=== PATIENT | female | born 1965 | race Caucasian/White ===

== ENCOUNTER → 2016-10-10 | Outpatient (CLI) | payer MEDICARE ==
[~2016-10-10] MED LIST: /ACETCOD3T PO; /ADVA50050 IN; /AUGM875TA OR; /CELE20CA OR; /DULO30CA PO; ACET650T PO; ACET65TA OR; ALBU83IN IN; ATROPINE SULF 1MG/10ML SYRINGE (J0461) As Ordered ONE; BUPIVACAINE HCL 0.25% 30 ML VIAL As Ordered ONE; CEVI30CA PO; CLAR5CHW OR; DEPA250C OR; DRIS1CAP PO; ESTR0.5T16 PO; FLON0.05; IBUP600T26 PO; ISOVUE-M 300 61% 15ML VIAL (Q9967) As Ordered ONE; LEVO125T PO; LIDOCAINE 1% SDV INJ 30 ML VIAL As Ordered ONE; LITH150C PO; LITH300T2 OR; LITH300T2 PO; LYRI150C PO; LYRI200C PO; MAXA10TA17 OR; MAXA5TAB10 PO; METF500T PO; MULTIVIT OR; OMEP20CA3 PO; OXYC-208 PO; PERC5TAB8 OR; PROZ20CA OR; SING10TA31 PO; TIZA2CAP PO; TRIAMCINOLONE ACETONIDE SUSP 40 MG/ML VIAL (J3301) As Ordered ONE; TYL RE; VENTAER INH; VIT D 4000 PO; VITA100037 PO; VITAMIN D OR; [UNRECOGNIZED DRUG - OTHER] PO; lithium PO
--- NOTE | 2016-10-10 11:46 | REP ---
C-arm images from the left lumbar facet block performed 10/10/2016 Indication: Pain Findings: 24 seconds c-arm fluoroscopy time were provided to Dr. Saba who performed bilateral lumbar facet injections at L 3-4 through L5-S1 . Spinal needles were identified overlying the articular facets L 3-4, L4-5, L5 S1 on the left initially, and then later on the right at L 3-4, L4-5, L5 S1. Intra-articular contrast is seen within the above-stated bilateral facet joints bilaterally. Four images were recorded and are available for review on PACS Signed by Kaylah Fierro MD 10/10/2016 11:38 A
--- NOTE | 2016-10-14 02:04 | ECWPNPC ---
PATIENT NAME: BIENVENIDO RDZ : 1965 GENDER: FEMALE VISIT DATE: 10/10/2016 DISCHARGE DATE: 10/10/16 1102 VISIT LOCKED DATE TIME: PHYSICIAN: WILMAR PENALOZA RESOURCE: WILMAR PENALOZA REASON FOR APPOINTMENT 1. LFBT HISTORY OF PRESENT ILLNESS HISTORY OF PRESENT ILLNESS: PAIN THE PATIENT DESCRIBES THE PAIN... FALL RISK SCREENING: SCREENING :TWO OR MORE FALLS WITHOUT INJURY IN THE PAST YEAR CURRENT MEDICATIONS TAKING MAXALT 10 MG TABLET [address] PLUMMER ORALLY NEEDED, NOTES: 3 WEEKS AGO TAKING CYMBALTA 60 MG CAPSULE DELAYED RELEASE PARTICLES 1 CAP ELIAN ORALLY TWICE DAILY, NOTES: 10/09/16@2199 TAKING LYRICA 150 MG CAPSULE 1 CAP(S) ORALLY TWICE DAILY, NOTES: 10/09/16@2199 TAKING TYLENOL/CODEINE #3 300-30 MG TABLET 1 TABLET NEEDED ORALLY AT BEDTIME, NOTES: 3 DAYS AGO TAKING NEBULIZER/TUBING/MOUTHPIECE DX: 466 KIT DIRECTED FOR INHALATION TX 4 TIMES DAILY NEEDED, NOTES: N/A TAKING MULTIVITAMINS OTC TABLET 2 TABS BIOFLEX ORALLY DAILY, NOTES: 10/09/16@1200 TAKING IPRATROPIUM-ALBUTEROL 0.5-2.5 (3) MG/3ML SOLUTION 3 ML INHALATION VIA NEBULIZER FOUR TIMES A DAY, NOTES: 1 YEAR AGO TAKING ESTRADIOL-NORETHINDRONE ACET 0.5-0.1 MG TABLET 1 TABLET ORALLY ONCE A DAY, NOTES: 10/09/16@30 TAKING TIZANIDINE HCL 2 MG TABLET 2 TABS NEEDED ORALLY AT BEDTIME, NOTES: 10/09/16@2330 TAKING TYLENOL 8 HOUR ARTHRITIS PAIN 650 MG TABLET EXTENDED RELEASE 2 TABLETS NEEDED ORALLY DAILY, NOTES: 10/09/16@929 TAKING LEVOTHYROXINE SODIUM 150 MCG TABLET 1 TABLET EVERY MORNING ON AN EMPTY STOMACH ORALLY ONCE A DAY, NOTES: 10/08/16@929 TAKING METFORMIN HCL 500 MG TABLET EXTENDED RELEASE 24 HOUR 2 TABS ORALLY DAILY WITH MEALS, NOTES: 10/09/16@2199 TAKING OMEPRAZOLE 40 MG CAPSULE DELAYED RELEASE 1 CAPSULE BEFORE MEAL ORALLY ONCE A DAY, NOTES: 10/09/16@30 TAKING DRISDOL 16254 UNIT CAPSULE 1 CAPSULE WITH MEAL ORALLY ONCE A WEEK, NOTES: 10/08/16@0930 TAKING SINGULAIR 10 MG TABLET 1 TABLET IN THE EVENING ORALLY ONCE A DAY, NOTES: 10/09/16@2200 TAKING CLARITIN 10 MG TABLET 1 TABLET ORALLY ONCE A DAY, NOTES: 10/09/16@0930 TAKING VOLTAREN 1 % GEL 4GM TO BOTH KNEES TRANSDERMAL TWICE DAILY NEEDED, NOTES: 10/10/16@0800 TAKING LISINOPRIL 10 MG TABLET 1 TAB ORALLY DAILY, NOTES: 10/08/16@0930 TAKING VENTOLIN HFA 108 (90 BASE) MCG/ACT AEROSOL SOLUTION 2 PUFFS INHALATION EVERY 4 HOURS NEEDED, NOTES: 2 WEEKS AGO NOT-TAKING LATUDA 20 MG TABLET 2 TABLETS WITH FOOD ORALLY ONCE A DAY NOT-TAKING ACTIVELLA 0.5-0.1 MG TABLET 1 TABLET ORALLY ONCE A DAY DISCONTINUED VITAMIN D 1000 UNIT TABLET 1 TABLET ORALLY ONCE A DAY MEDICATION LIST REVIEWED AND RECONCILED WITH THE PATIENT PAST MEDICAL HISTORY HYPOTHYROIDISM, AQUIRED DYSPEPSIA, GERD WITH DYSPHAGIA ALLERGIC RHINITIS, SEASONAL MORBID OBESITY BACK PAIN/ DEG DISC DISEASE - [facility] FIBROMYALGIA - DR PLUMMER OBESITY BIPOLAR - DR HILL SLEEP APNEA - DR HERCULES NONALCOHOLIC HEPATOSTEATOSIS KNEE DETERIATION ALLERGIES VICODIN: ITCHING: ALLERGY LAMICTAL: RASH: ALLERGY GEODON: NUMBNESS/TINGLING: ALLERGY SOMA: DIZZINESS: SIDE EFFECTS PERCOCET: ITCHING: ALLERGY PLAQUENIL: DIARRHEA: ALLERGY SOCIAL HISTORY GENERAL: TOBACCO USE ARE YOU A:NONSMOKER LEARNING BARRIERS / SPECIAL NEEDS ORIENTED TO PLAN OF CARE: PATIENT, PAIN MANAGEMENT PATIENT, ORIENTED TO PLAN OF CARE: PATIENT, PAIN MANAGEMENT PATIENT. NEW PATIENT PAIN DIARY TODAY'S VISITNOTES FROM 0-10, WHAT LEVEL IS YOUR PAIN TODAY?0 PAIN CLINIC PFS, CLERGY, PUBLIC HEALTH REFERRALS PFS REFERRAL NEEDED?NO CLERGY REFERRAL NEEDED?NO PUBLIC HEALTH REFERRAL NEEDED?NO WAS THE PROVIDER NOTIFIED OF ANY PERTINENT INFO?NO PFS REFERRAL NEEDED?NO CLERGY REFERRAL NEEDED?NO PUBLIC HEALTH REFERRAL NEEDED?NO WAS THE PROVIDER NOTIFIED OF ANY PERTINENT INFO?NO REVIEW OF SYSTEMS CONSTITUTIONAL: ANY CHANGE IN YOUR MEDICAL CONDITION? NO . CHILLS NO . FEVER NO . INFECTION: DO YOU HAVE NEW INFECTIONS? NO . DO YOU HAVE HISTORY OF MRSA? NO . MUSCULOSKELETAL: ANY NEW PATTERNS OF PAIN OR NUMBNESS? NO . GASTROENTEROLOGY: ANY NEW CHANGE IN BOWEL CONTROL? NO . GENITOURINARY: ANY NEW CHANGE IN BLADDER CONTROL? NO . IS THERE A CHANCE YOU COULD BE ? NO . HEMATOLOGY/LYMPH: DO YOU TAKE ANY BLOOD THINNERS? (FOR EXAMPLE- COUMADIN, PLAVIX, AGGRENOX, PLATEL, PRADAXA, OR XARELTO) NO . WHEN WAS YOUR LAST DOSE? DATE: TIME: . NEUROLOGY: HAVE YOU FALLEN IN THE PAST 6 MONTHS? NO . ANY NEW EXTREMITY NUMBNESS OR WEAKNESS? NO . CARDIOLOGY: DO YOU HAVE A PACEMAKER OR DEFIBRILLATOR? NO . RESPIRATORY: HAVE YOU BEEN SICK IN THE PAST WEEK? NO . FEVER NO . FLU LIKE SYMPTOMS? NO . COUGH NO . INTEGUMENTARY: DO YOU HAVE ANY RASHES OR OPEN SORES? NO . ALLERGIC/IMMUNO: ARE YOU ALLERGIC TO SHELLFISH OR IV DYE? NO . ANY NEW ALLERGIES? NO . PSYCHIATRIC: DO YOU HAVE THOUGHTS OF HURTING YOURSELF OR SOMEONE ELSE? NO . ARE YOU ABUSED, NEGLECTED, OR IN AN UNSAFE ENVIRONMENT? NO . ENDOCRINOLOGY: ARE YOU DIABETIC? NO . OTHER: DO YOU NEED ANY PRESCRIPTIONS? NO . IF YES, PLEASE LIST: ____ . ANY NEW PROBLEMS WITH YOUR MEDICATIONS? NO . WHEN DID YOU LAST EAT? ____10/09/16@2330 . WHEN DID YOU LAST DRINK? ____10/09/16@2350 . WHAT DID YOU LAST DRINK? ___GRAPE POWERADE_ . NAME OF PERSON DRIVING YOU HOME? ____HUSBAND . DO YOU HAVE ANY OTHER QUESTIONS OR CONCERNS NO . REVIEWED BY: PROVIDER: . VITAL SIGNS WT 226 LBS, HT 60.5 IN, BMI 43.41 INDEX, BP 130?83, HR 84 /MIN, RR 18 /MIN, TEMP 97.8 F, OXYGEN SAT % 96%, NA INITIALS SC 09:04, REVIEWED BY: VD. ASSESSMENTS SPONDYLOSIS WITHOUT MYELOPATHY OR RADICULOPATHY, LUMBAR REGION - M47.816 (PRIMARY) SPONDYLOSIS WITHOUT MYELOPATHY OR RADICULOPATHY, LUMBOSACRAL REGION - M47.817 PROCEDURES PN LUMBAR FACET BLOCK THERAPEUTIC PRE PROCEDURE DIAGNOSIS LUMBAR SPONDYLOSIS, LUMBOSACRAL SPONDYLOSIS POST PROCEDURE DIAGNOSIS LUMBAR SPONDYLOSIS, LUMBOSACRAL SPONDYLOSIS PROCEDURE BILATERAL L3-L4, BILATERAL L4-L5, AND BILATERAL L5-S1 FACET THERAPEUTIC BLOCK SURGEON DR. WILMAR PENALOZA BOAT WRAPPER NONE ANESTHESIA LOCAL PRE PROCEDURE NOTE THE PATIENT HAS A HISTORY OF CHRONIC LOW BACK PAIN. I EVALUATE THE PATIENT AND REVIEWED THE CHART. I WENT OVER THE RISKS, ALTERNATIVES, AND BENEFITS ASSOCIATED WITH THIS PROCEDURE. THE PATIENT WOULD LIKE TO PROCEED AND GIVE CONSENT TO PERFORMED THE PROCEDURE. THE PATIENT DENIES UNEXPLAINABLE WEIGHT LOSS, FEVER, CHILLS, OR NEW CHANGES IN URINARY OR BOWEL CONTROL DESCRIPTION OF PROCEDURE THE PATIENT WAS BROUGHT TO THE PROCEDURE ROOM AND PLACED IN THE PRONE POSITION. THE LUMBOSACRAL AREA WAS CLEANED WITH CHLORAPREP SOLUTION AND DRAPED ASEPTICALLY. THE PROCEDURE WAS DONE UNDER STERILE CONDITIONS. I CHECKED LATERALITY AND THE LEVEL WHERE THE PROCEDURE WAS GOING TO BE PERFORMED WITH THE PATIENT AND THE SUPPORTING STAFF AT THE MOMENT OF THE TIME OUT IN THE PROCEDURE ROOM. UNDER FLUOROSCOPIC GUIDANCE, THE TARGET POINT WAS SELECTED AT THE RIGHT AND LEFT L3-L4, RIGHT AND LEFT L4-L5, AND RIGHT AND LEFT L5-S1 FACET THERAPEUTIC BLOCK FACET JOINT. TARGET POINT WAS SELECTED AFTER LATERAL ROTATION AND TILT OF THE MAGNIFIER OF THE C-ARM. LIDOCAINE 0.5% WAS USED TO NUMB THE SKIN AND THE SUBCUTANEOUS TISSUE BELOW IT. SPINAL NEEDLES, 22-GAUGE, WERE ADVANCED UNDER FLUOROSCOPIC GUIDANCE AND FOLLOWING PATIENT FEEDBACK UNTIL THE TARGETS WERE TOUCHED. THE POSITION OF THE NEEDLES WAS VERIFIED WITH AP AND LATERAL VIEWS. AFTER PROPER POSITION OF THE NEEDLES WAS ACHIEVED, ISOVUE-M DYE 30% 0.1 ML WAS INJECTED SHOWING ADEQUATE SPREAD OF THE DYE. THEN A SOLUTION OF 1.9 ML OF BUPIVACAINE 0.125% OF KENALOG 10 MG WAS INJECTED AT EACH SITE. THERE WAS NO EVIDENCE OF BLOOD, PARESTHESIA OR CEREBROSPINAL FLUID DURING THE PROCEDURE. THE PATIENT WAS SENT TO THE RECOVERY ROOM. THE PATIENT WAS MOVING THE EXTREMITIES AND DOING WELL. THERE WAS NO COMPLICATION DURING THE PROCEDURE. FLUOROSCOPY TIME WAS 24 SECONDS POST PROCEDURE NOTE THE PATIENT WILL BE SEEN IN A FOLLOW UP IN THE NEXT FEW WEEKS. INSTRUCTIONS WERE GIVEN, QUESTIONS WERE ANSWERED, AND THE PATIENT EXPRESSED UNDERSTANDING AND AGREES WITH THE PLAN DIAGNOSTIC IMAGING [facility] FACET BLOCK (PAIN)[id number] PROCEDURE CODES 92450 INJ PARAVERT F JNT L/S 1 LEV 65900 INJ PARAVERT F JNT L/S 2 LEV 11670 INJ PARAVERT F JNT L/S 3 LEV 6045F RADXPS IN END [id number] PXD FOLLOW UP 3 WEEKS ELECTRONICALLY SIGNED BY WILMAR PENALOZA MD ON 10/13/2016 AT 06:00 PM EST DISCLAIMER : THIS IS A VISIT SUMMARY EXTRACTED FROM THE [employer] CHART. IT IS NOT A COPY OF THE [employer] PROGRESS NOTE. DANIEL
== END ==
LOC: M PAIN 09:10
PROVIDERS: ATTEND Anesthesiology
DX: G89.29 Other chronic pain (principal); M47.816 Spondylosis without myelopathy or radiculopathy, lumbar region; M47.817 Spondylosis without myelopathy or radiculopathy, lumbosacral region; E03.9 Hypothyroidism, unspecified; K30 Functional dyspepsia; J30.89 Other allergic rhinitis; E66.9 Obesity, unspecified; Z68.41 Body mass index [BMI] 40.0-44.9, adult; F31.9 Bipolar disorder, unspecified; G47.30 Sleep apnea, unspecified; K75.81 Nonalcoholic steatohepatitis (NASH); M17.9 Osteoarthritis of knee, unspecified; Z88.8 Allergy status to other drugs, medicaments and biological substances; Z79.84 Long term (current) use of oral hypoglycemic drugs; Z79.899 Other long term (current) drug therapy
CPT/HCPCS: 64493; 64494; 64495; J3301; Q9967

== ENCOUNTER → 2016-10-31 | Outpatient (CLI) | payer MEDICARE ==
[~2016-10-31] MED LIST changes: -ATROPINE SULF 1MG/10ML SYRINGE (J0461) As Ordered ONE; -BUPIVACAINE HCL 0.25% 30 ML VIAL As Ordered ONE; -ISOVUE-M 300 61% 15ML VIAL (Q9967) As Ordered ONE; -LIDOCAINE 1% SDV INJ 30 ML VIAL As Ordered ONE; -TRIAMCINOLONE ACETONIDE SUSP 40 MG/ML VIAL (J3301) As Ordered ONE
--- NOTE | 2016-11-08 01:52 | ECWPNPC ---
PATIENT NAME: BIENVENIDO RDZ : 1965 GENDER: FEMALE VISIT DATE: 10/31/2016 DISCHARGE DATE: 10/31/16 1204 VISIT LOCKED DATE TIME: PHYSICIAN: WILMAR PENALOZA RESOURCE: WILMAR PENALOZA REASON FOR APPOINTMENT 1. BACK HISTORY OF PRESENT ILLNESS HISTORY OF PRESENT ILLNESS: PAIN THE PATIENT DESCRIBES THE PAIN... 51 YEAR OLD FEMALE WITH HISTORY OF CHRONIC BACK PAIN. PATIENT DESCRIBES THE PAIN ACHING, BURNING, SHARP, STABBING, THROBBING, SORE, SHOOTING, AND HAVING IT ALL THE TIME WITH A PAIN SCORE OF 6-8/10. PATIENT REPORTS THAT HE PCP PRESCRIBED HER NEW BLOOD PRESSURE MEDICATION. PATIENT RECEIVED AN LFBT ON 10/10/2016 AND REPORTS OF 50 PERCENT DECREASE IN HER PAIN. PATIENT STATES THAT LYRICA DOES HELP IN MANAGING HER PAIN. PATIENT DENIES UNEXPLAINABLE WEIGHT LOSS, FEVER, CHILLS, NEW CHANGES ON HER URINARY OR BOWEL CONTROL. FALL RISK SCREENING: SCREENING :NO FALLS IN THE PAST YEAR CURRENT MEDICATIONS TAKING MAXALT 10 MG TABLET [address] PLUMMER ORALLY NEEDED, NOTES: 3 WEEKS AGO TAKING CYMBALTA 60 MG CAPSULE DELAYED RELEASE PARTICLES [address] PLUMMER ORALLY TWICE DAILY, NOTES: 10/09/16@2200 TAKING LYRICA 150 MG CAPSULE 1 CAP(S) ORALLY TWICE DAILY, NOTES: 10/09/16@2200 TAKING TYLENOL/CODEINE #3 300-30 MG TABLET 1 TABLET NEEDED ORALLY AT BEDTIME, NOTES: 3 DAYS AGO TAKING NEBULIZER/TUBING/MOUTHPIECE DX: 466 KIT DIRECTED FOR INHALATION TX 4 TIMES DAILY NEEDED, NOTES: N/A TAKING MULTIVITAMINS OTC TABLET 2 TABS BIOFLEX ORALLY DAILY, NOTES: 10/09/16@1200 TAKING IPRATROPIUM-ALBUTEROL 0.5-2.5 (3) MG/3ML SOLUTION 3 ML INHALATION VIA NEBULIZER FOUR TIMES A DAY, NOTES: 1 YEAR AGO TAKING ESTRADIOL-NORETHINDRONE ACET 0.5-0.1 MG TABLET 1 TABLET ORALLY ONCE A DAY, NOTES: 10/09/16@0930 TAKING TIZANIDINE HCL 2 MG TABLET 2 TABS NEEDED ORALLY AT BEDTIME, NOTES: 10/09/16@2330 TAKING TYLENOL 8 HOUR ARTHRITIS PAIN 650 MG TABLET EXTENDED RELEASE 2 TABLETS NEEDED ORALLY DAILY, NOTES: 10/09/16@30 TAKING LEVOTHYROXINE SODIUM 150 MCG TABLET 1 TABLET EVERY MORNING ON AN EMPTY STOMACH ORALLY ONCE A DAY, NOTES: 10/08/1630 TAKING METFORMIN HCL 500 MG TABLET EXTENDED RELEASE 24 HOUR 2 TABS ORALLY DAILY WITH MEALS, NOTES: 10/09/16@0 TAKING DRISDOL 51494 UNIT CAPSULE 1 CAPSULE WITH MEAL ORALLY ONCE A WEEK, NOTES: 10/08/16 TAKING SINGULAIR 10 MG TABLET 1 TABLET IN THE EVENING ORALLY ONCE A DAY, NOTES: 10/09/160 TAKING CLARITIN 10 MG TABLET 1 TABLET ORALLY ONCE A DAY, NOTES: 10/09/16 TAKING VOLTAREN 1 % GEL 4GM TO BOTH KNEES TRANSDERMAL TWICE DAILY NEEDED, NOTES: 10/10/16@0800 TAKING VENTOLIN HFA 108 (90 BASE) MCG/ACT AEROSOL SOLUTION 2 PUFFS INHALATION EVERY 4 HOURS NEEDED, NOTES: 2 WEEKS AGO TAKING VITAMIN D (ERGOCALCIFEROL) 32548 UNIT CAPSULE TAKE ONE CAPSULE BY MOUTH ONCE A WEEK WITH A MEAL TAKING OMEPRAZOLE 40 MG CAPSULE DELAYED RELEASE 1 CAPSULE BEFORE MEAL ORALLY ONCE A DAY, NOTES: 10/09/16@30 TAKING DUAVEE 0.45-20 MG TABLET 1 TABLET ORALLY ONCE A DAY NOT-TAKING LATUDA 20 MG TABLET 2 TABLETS WITH FOOD ORALLY ONCE A DAY NOT-TAKING ACTIVELLA 0.5-0.1 MG TABLET 1 TABLET ORALLY ONCE A DAY MEDICATION LIST REVIEWED AND RECONCILED WITH THE PATIENT PAST MEDICAL HISTORY HYPOTHYROIDISM, AQUIRED DYSPEPSIA, GERD WITH DYSPHAGIA ALLERGIC RHINITIS, SEASONAL MORBID OBESITY BACK PAIN/ DEG DISC DISEASE - [facility] FIBROMYALGIA - DR PLUMMER OBESITY BIPOLAR - DR HILL SLEEP APNEA - DR HERCULES NONALCOHOLIC HEPATOSTEATOSIS KNEE DETERIATION ALLERGIES VICODIN: ITCHING: ALLERGY LAMICTAL: RASH: ALLERGY GEODON: NUMBNESS/TINGLING: ALLERGY SOMA: DIZZINESS: SIDE EFFECTS PERCOCET: ITCHING: ALLERGY PLAQUENIL: DIARRHEA: ALLERGY LATUDA: VIOENT ANGRY EPISODES: SIDE EFFECTS SURGICAL HISTORY C SECTION X3 BREAST REDUCTION EGD-HIATAL HERNIA, MILD CHRONIC GASTRITIS-DR SEPULVEDA 02/08/11 COLONOSCOPY-HEMORRHOIDS, MILD INFLAMMATION- COCO 02/08/11 CHOLECYSTECTOMY FAMILY HISTORY NO FAMILY HISTORY DOCUMENTED. SOCIAL HISTORY GENERAL: TOBACCO USE ARE YOU A:NONSMOKER LEARNING BARRIERS / SPECIAL NEEDS ORIENTED TO PLAN OF CARE: PATIENT, PAIN MANAGEMENT PATIENT, ORIENTED TO PLAN OF CARE: PATIENT, PAIN MANAGEMENT PATIENT. NEW PATIENT PAIN DIARY TODAY'S VISITNOTES FROM 0-10, WHAT LEVEL IS YOUR PAIN TODAY?0 PAIN CLINIC PFS, CLERGY, PUBLIC HEALTH REFERRALS PFS REFERRAL NEEDED?NO CLERGY REFERRAL NEEDED?NO PUBLIC HEALTH REFERRAL NEEDED?NO WAS THE PROVIDER NOTIFIED OF ANY PERTINENT INFO?NO PFS REFERRAL NEEDED?NO CLERGY REFERRAL NEEDED?NO PUBLIC HEALTH REFERRAL NEEDED?NO WAS THE PROVIDER NOTIFIED OF ANY PERTINENT INFO?NO HOSPITALIZATION/MAJOR DIAGNOSTIC PROCEDURE NO HOSPITALIZATION HISTORY. REVIEW OF SYSTEMS CONSTITUTIONAL: ANY CHANGE IN YOUR MEDICAL CONDITION? YES PT REPORTS SHE IS HAVING CARPAL TUNNEL SURGERY LEFT HAND, TO BE SCHEDULED . CHILLS NO . FEVER NO . INFECTION: DO YOU HAVE NEW INFECTIONS? NO . DO YOU HAVE HISTORY OF MRSA? NO . MUSCULOSKELETAL: ANY NEW PATTERNS OF PAIN OR NUMBNESS? YES PT REPORTS A NEW AND INCREASED NUMBNESS/TINGLING IN LEGS AND FEET. REPORTS IT COMES AND GOES, IS CURRENTLY PRESENT. SEEMS TO OCCUR AFTER PROLONGED SITTING. . GASTROENTEROLOGY: ANY NEW CHANGE IN BOWEL CONTROL? NO . GENITOURINARY: ANY NEW CHANGE IN BLADDER CONTROL? NO . IS THERE A CHANCE YOU COULD BE ? NO . HEMATOLOGY/LYMPH: DO YOU TAKE ANY BLOOD THINNERS? (FOR EXAMPLE- COUMADIN, PLAVIX, AGGRENOX, PLATEL, PRADAXA, OR XARELTO) NO . WHEN WAS YOUR LAST DOSE? DATE: TIME: . NEUROLOGY: HAVE YOU FALLEN IN THE PAST 6 MONTHS? NO . ANY NEW EXTREMITY NUMBNESS OR WEAKNESS? NO . CARDIOLOGY: DO YOU HAVE A PACEMAKER OR DEFIBRILLATOR? NO . RESPIRATORY: HAVE YOU BEEN SICK IN THE PAST WEEK? YES PT REPORTS HAVING A HEAD COLD THIS WEEK, WITH SINUS CONGESTION. PT REPORTS DRY COUGH, NO FEVER . FEVER NO . FLU LIKE SYMPTOMS? NO . COUGH NO . INTEGUMENTARY: DO YOU HAVE ANY RASHES OR OPEN SORES? NO . ALLERGIC/IMMUNO: ARE YOU ALLERGIC TO SHELLFISH OR IV DYE? NO . ANY NEW ALLERGIES? NO . PSYCHIATRIC: DO YOU HAVE THOUGHTS OF HURTING YOURSELF OR SOMEONE ELSE? NO . ARE YOU ABUSED, NEGLECTED, OR IN AN UNSAFE ENVIRONMENT? NO . ENDOCRINOLOGY: ARE YOU DIABETIC? YES . OTHER: DO YOU NEED ANY PRESCRIPTIONS? NO . IF YES, PLEASE LIST: ____ . ANY NEW PROBLEMS WITH YOUR MEDICATIONS? NO . WHEN DID YOU LAST EAT? ____ . WHEN DID YOU LAST DRINK? ____ . WHAT DID YOU LAST DRINK? ____ . NAME OF PERSON DRIVING YOU HOME? ____ . DO YOU HAVE ANY OTHER QUESTIONS OR CONCERNS NO . REVIEWED BY: PROVIDER: WILMAR PENALOZA MD . VITAL SIGNS WT 219 LBS, HT 60.5 IN, BMI 42.06 INDEX, BP 154/87 MM HG, HR 92 /MIN, RR 18 /MIN, TEMP 98.0 F, OXYGEN SAT % 95%, SAFE IN ENV? (Y/N) YES, REVIEWED BY: HUMBERTO. EXAMINATION : PATIENT IS ALERT O X 3 AND COOPERATIVE. TENDERNESS IN THE LOWER BACK AND PARASPINAL MUSCLE GROUP. MRI OF THE LUMBAR SPINE DONE ON 02/03/2015 SHOWS A MODERATELY SEVERE DEGENERATIVE CHANGES IN THE L4-L5 FACETS WITH A SLIGHT SPONDYLOLISTHESIS OF THE L4-L5. THERE IS A DISC EXTRUSION INTO THE RIGHT L5-S1 FORAMEN. 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 ASSESSMENTS SPONDYLOSIS WITHOUT MYELOPATHY OR RADICULOPATHY, LUMBOSACRAL REGION - M47.817 (PRIMARY) SPONDYLOSIS WITHOUT MYELOPATHY OR RADICULOPATHY, LUMBAR REGION - M47.816 TREATMENT SPONDYLOSIS WITHOUT MYELOPATHY OR RADICULOPATHY, LUMBOSACRAL REGION NOTES: WE DISCUSSED SEVERAL ISSUES WITH MS. RDZ'S PAIN MANAGEMENT CASE. AT THIS TIME THE PATIENT WILL INCREASE HER LYRICA TO TWICE A DAY. DUE TO THE INJECTION HAVING BEEN DONE RECENTLY, I INFORMED THE PATIENT THAT AT THIS TIME WE WILL CONTINUE WITH MEDICATION MANAGEMENT. ADVISED PATIENT TO CONTINUE MONITORING THE RESULTS OF HER LFBT, AND WHETHER THE PAIN GOES DOWN OR INCREASES. PATIENT TO FOLLOW UP WITH IVONNE GORE IN 1 MONTH. INSTRUCTIONS WERE GIVEN, QUESTIONS WERE ANSWERED, PATIENT REPORTS UNDERSTANDING AND AGREES WITH THE PLAN. I, LUIS LIZ, DOCUMENTED THE ABOVE INFORMATION ACTING A SCRIBE FOR DR. PENALOZA. I HAVE REVIEWED THE ABOVE DOCUMENT, WRITTEN BY LUIS LIZ SCRIBAlli AND I VERIFY THAT IT IS ACCURATE. PROCEDURE CODES FA211 ESTABILISHED PATIENT [facility] FACILITY CHARGE [id number] PAIN ASSESS POS TOOL F/U PLAN DOC G2227 DOC MEDS VERIFIED W/PT OR RE FOLLOW UP 4 WEEKS ELECTRONICALLY SIGNED BY WILMAR PENALOZA MD ON 11/07/2016 AT 01:40 PM EST DISCLAIMER : THIS IS A VISIT SUMMARY EXTRACTED FROM THE [employer] CHART. IT IS NOT A COPY OF THE [employer] PROGRESS NOTE. DANIEL
== END ==
LOC: M PAIN 09:40
PROVIDERS: ATTEND Anesthesiology
DX: Z09 Encounter for follow-up examination after completed treatment for conditions other than malignant neoplasm (principal); G89.29 Other chronic pain; M47.817 Spondylosis without myelopathy or radiculopathy, lumbosacral region; M47.816 Spondylosis without myelopathy or radiculopathy, lumbar region; E03.9 Hypothyroidism, unspecified; K30 Functional dyspepsia; J30.89 Other allergic rhinitis; E66.9 Obesity, unspecified; Z68.41 Body mass index [BMI] 40.0-44.9, adult; M79.7 Fibromyalgia; F31.9 Bipolar disorder, unspecified; G47.30 Sleep apnea, unspecified; K76.0 Fatty (change of) liver, not elsewhere classified; M17.9 Osteoarthritis of knee, unspecified; E11.9 Type 2 diabetes mellitus without complications; Z88.5 Allergy status to narcotic agent; Z88.8 Allergy status to other drugs, medicaments and biological substances; Z79.84 Long term (current) use of oral hypoglycemic drugs; Z79.899 Other long term (current) drug therapy

== ENCOUNTER → 2016-11-15 | Outpatient (REF) | payer MEDICARE ==
[2016-11-15 13:38] LABS: ANION GAP 8 MEQ/L (8-16); BLOOD UREA NITROGEN 18 MG/DL (7-18); CARBON DIOXIDE LEVEL 31 MEQ/L (21-32); CHLORIDE LEVEL 100 MEQ/L (98-107); FREE T4 1.44 NG/DL (0.76-1.46); GLOMERULAR FILTRATION RATE > 60.0 (>58); GLUCOSE, FASTING 73 MG/DL (70-105); POTASSIUM SERUM 3.7 MEQ/L (3.5-5.1); SODIUM LEVEL 139 MEQ/L (136-145)
== END ==
LOC: M SFHCPLAZ 11:04
PROVIDERS: ATTEND Nurse Practitioner Family
DX: E03.9 Hypothyroidism, unspecified (principal); I10 Essential (primary) hypertension

== ENCOUNTER → 2016-11-21 | Outpatient (CLI) | payer MEDICARE ==
--- NOTE | 2016-11-21 13:05 | REP ---
Clinical: Essential hypertension . Comparison: 04/05/2015 . Technique: PA and lateral. Findings: The mediastinum and cardiac silhouette are normal. The lung sterling are clear and without acute consolidation, effusion, or pneumothorax. The skeletal structures are intact and normal. Impression: 1. No acute cardiopulmonary process. Signed by Regino Lovell MD 11/21/2016 12:56 P
== END ==
LOC: M RAD 12:11
PROVIDERS: ATTEND Nurse Practitioner Family
DX: I10 Essential (primary) hypertension (principal); Z51.81 Encounter for therapeutic drug level monitoring; Z79.899 Other long term (current) drug therapy

== ENCOUNTER → 2016-11-21 | Outpatient (CLI) | payer MEDICARE ==
[2016-11-21 12:52] LABS: BASO % 0.2 % (0.0-1.0); EOS # 0.1 K/mm3 (0.0-0.50); LARGE UNSTAINED CELL # 0.1 K/mm3 (0.0-0.4); LARGE UNSTAINED CELL % 1.1 % (0.0-4.0); LYMPH % 22.2 % (24.0-44.0); MEAN CORPUSCULAR HEMOGLOBIN 27.7 pg (27.0-33.0); MEAN CORPUSCULAR HGB CONC 32.2 g/dl (32.0-36.5); MONO # 0.6 K/mm3 (0.0-0.8); MONO % 4.6 % (0.0-5.0); NEUTROPHILS % 70.9 % (36.0-66.0); PLATELET COUNT, AUTOMATED 436 k/mm3 (150-450); RED CELL DISTRIBUTION WIDTH 15.4 % (11.5-14.5); WHITE BLOOD COUNT 12.7 K/mm3 (4.0-10.0)
[2016-11-21 13:30] LABS: ALKALINE PHOSPHATASE 101 U/L (45-117); ALT/SGPT 18 U/L (12-78); AST/SGOT 8 U/L (15-37); BILIRUBIN,DIRECT < 0.1 MG/DL (0.0-0.2); BILIRUBIN,TOTAL 0.2 MG/DL (0.2-1.0); TOTAL PROTEIN 7.3 GM/DL (6.4-8.2)
== END ==
LOC: M LAB 12:06
PROVIDERS: ATTEND Psychiatry & Neurology Psychiatry
DX: Z51.81 Encounter for therapeutic drug level monitoring (principal); Z79.899 Other long term (current) drug therapy

== ENCOUNTER → 2016-11-30 | Outpatient (CLI) | payer MEDICARE ==
--- NOTE | 2016-12-01 23:22 | ECWPNPC ---
PATIENT NAME: BIENVENIDO RDZ : 1965 GENDER: FEMALE VISIT DATE: 11/30/2016 DISCHARGE DATE: 11/30/16 1607 VISIT LOCKED DATE TIME: PHYSICIAN: IVONNE GORE RESOURCE: IVONNE GORE REASON FOR APPOINTMENT 1. BACK HISTORY OF PRESENT ILLNESS HISTORY OF PRESENT ILLNESS: HERE FOR F/U OF CHRONIC LBP.HAD LUMBAR THERAPEUTIC FACET BLOCK 10-10-16.REPORTED 50% IMPROVEMENT FOR TWO WEEKS THEN PAIN HAS RETURNED TO BASELINE.RATING PAIN VAS 9/10.HAS LBP THAT RADIATES INTO HIPS BILATERALLY.PAIN IS AGGREVATED WITH WALKING. PAIN THE PATIENT DESCRIBES THE PAIN... FALL RISK SCREENING: SCREENING :NO FALLS IN THE PAST YEAR CURRENT MEDICATIONS TAKING MAXALT 10 MG TABLET 1 TAB ELIAN ORALLY NEEDED TAKING CYMBALTA 60 MG CAPSULE DELAYED RELEASE PARTICLES [address] ELIAN ORALLY TWICE DAILY TAKING LYRICA 150 MG CAPSULE 1 CAP(S) ORALLY TWICE DAILY TAKING TYLENOL/CODEINE #3 300-30 MG TABLET 1 TABLET NEEDED ORALLY AT BEDTIME TAKING NEBULIZER/TUBING/MOUTHPIECE DX: 466 KIT DIRECTED FOR INHALATION TX 4 TIMES DAILY NEEDED TAKING IPRATROPIUM-ALBUTEROL 0.5-2.5 (3) MG/3ML SOLUTION 3 ML INHALATION VIA NEBULIZER FOUR TIMES A DAY TAKING TIZANIDINE HCL 2 MG TABLET 2 TABS NEEDED ORALLY AT BEDTIME TAKING TYLENOL 8 HOUR ARTHRITIS PAIN 650 MG TABLET EXTENDED RELEASE 2 TABLETS NEEDED ORALLY DAILY TAKING DUAVEE 0.45-20 MG TABLET 1 TABLET ORALLY ONCE A DAY TAKING DIVALPROEX SODIUM ER 250 MG TABLET EXTENDED RELEASE 24 HOUR TAKE ONE TABLET BY MOUTH EVERY EVENING ORAL TAKING OSTEO BI-FLEX TRIPLE STRENGTH - TABLET 2 TAB ORALLY DAILY TAKING METFORMIN HCL 500 MG TABLET EXTENDED RELEASE 24 HOUR 2 TABS ORALLY DAILY WITH MEALS TAKING OMEPRAZOLE 40 MG CAPSULE DELAYED RELEASE 1 CAPSULE BEFORE MEAL ORALLY ONCE A DAY TAKING DRISDOL 01170 UNIT CAPSULE 1 CAPSULE WITH MEAL ORALLY ONCE A WEEK TAKING SINGULAIR 10 MG TABLET 1 TABLET IN THE EVENING ORALLY ONCE A DAY TAKING CLARITIN 10 MG TABLET 1 TABLET ORALLY ONCE A DAY TAKING VOLTAREN 1 % GEL 4GM TO BOTH KNEES TRANSDERMAL TWICE DAILY NEEDED TAKING VENTOLIN HFA 108 (90 BASE) MCG/ACT AEROSOL SOLUTION 2 PUFFS INHALATION EVERY 4 HOURS NEEDED TAKING LISINOPRIL 5 MG TABLET 1 TAB ORALLY DAILY TAKING AMOXICILLIN-POT CLAVULANATE 875-125 MG TABLET 1 TABLET ORALLY EVERY 12 HRS TAKING LEVOTHYROXINE SODIUM 150 MCG TABLET 1 TABLET EVERY MORNING ON AN EMPTY STOMACH ORALLY ONCE A DAY NOT-TAKING VITAMIN D (ERGOCALCIFEROL) 90447 UNIT CAPSULE TAKE ONE CAPSULE BY MOUTH ONCE A WEEK WITH A MEAL NOT-TAKING MULTIVITAMINS OTC TABLET 2 TABS BIOFLEX ORALLY DAILY NOT-TAKING ESTRADIOL-NORETHINDRONE ACET 0.5-0.1 MG TABLET 1 TABLET ORALLY ONCE A DAY NOT-TAKING LATUDA 20 MG TABLET 2 TABLETS WITH FOOD ORALLY ONCE A DAY NOT-TAKING ACTIVELLA 0.5-0.1 MG TABLET 1 TABLET ORALLY ONCE A DAY DISCONTINUED LISINOPRIL 10 MG TABLET 1/2 TAB ORALLY DAILY DISCONTINUED VITAMIN D 1000 UNIT TABLET 1 TABLET ORALLY ONCE A DAY MEDICATION LIST REVIEWED AND RECONCILED WITH THE PATIENT PAST MEDICAL HISTORY HYPOTHYROIDISM, AQUIRED DYSPEPSIA, GERD WITH DYSPHAGIA ALLERGIC RHINITIS, SEASONAL MORBID OBESITY BACK PAIN/ DEG DISC DISEASE - [facility] FIBROMYALGIA - DR PLUMMER OBESITY BIPOLAR - DR HILL SLEEP APNEA - DR HERCULES NONALCOHOLIC HEPATOSTEATOSIS KNEE DETERIATION ALLERGIES VICODIN: ITCHING: ALLERGY LAMICTAL: RASH: ALLERGY GEODON: NUMBNESS/TINGLING: ALLERGY SOMA: DIZZINESS: SIDE EFFECTS PERCOCET: ITCHING: ALLERGY PLAQUENIL: DIARRHEA: ALLERGY LATUDA: VIOENT ANGRY EPISODES: SIDE EFFECTS SOCIAL HISTORY GENERAL: TOBACCO USE ARE YOU A:NONSMOKER LEARNING BARRIERS / SPECIAL NEEDS ORIENTED TO PLAN OF CARE: PATIENT, PAIN MANAGEMENT PATIENT, ORIENTED TO PLAN OF CARE: PATIENT, PAIN MANAGEMENT PATIENT. NEW PATIENT PAIN DIARY TODAY'S VISITNOTES FROM 0-10, WHAT LEVEL IS YOUR PAIN TODAY?0 PAIN CLINIC PFS, CLERGY, PUBLIC HEALTH REFERRALS PFS REFERRAL NEEDED?NO CLERGY REFERRAL NEEDED?NO PUBLIC HEALTH REFERRAL NEEDED?NO WAS THE PROVIDER NOTIFIED OF ANY PERTINENT INFO?NO PFS REFERRAL NEEDED?NO CLERGY REFERRAL NEEDED?NO PUBLIC HEALTH REFERRAL NEEDED?NO WAS THE PROVIDER NOTIFIED OF ANY PERTINENT INFO?NO REVIEW OF SYSTEMS CONSTITUTIONAL: ANY CHANGE IN YOUR MEDICAL CONDITION? NO . RECENT ILLNESS DENIES . CHILLS NO . FEVER NO . WEIGHT LOSS DENIES . INFECTION: DO YOU HAVE NEW INFECTIONS? NO . DO YOU HAVE HISTORY OF MRSA? NO . MUSCULOSKELETAL: ANY NEW PATTERNS OF PAIN OR NUMBNESS? NO . GASTROENTEROLOGY: ANY NEW CHANGE IN BOWEL CONTROL? NO . GENITOURINARY: ANY NEW CHANGE IN BLADDER CONTROL? NO . IS THERE A CHANCE YOU COULD BE ? NO . HEMATOLOGY/LYMPH: DO YOU TAKE ANY BLOOD THINNERS? (FOR EXAMPLE- COUMADIN, PLAVIX, AGGRENOX, PLATEL, PRADAXA, OR XARELTO) NO . WHEN WAS YOUR LAST DOSE? DATE: TIME: . NEUROLOGY: HAVE YOU FALLEN IN THE PAST 6 MONTHS? NO . ANY NEW EXTREMITY NUMBNESS OR WEAKNESS? NO . CARDIOLOGY: DO YOU HAVE A PACEMAKER OR DEFIBRILLATOR? NO . CHEST PAIN DENIES . SHORTNESS OF BREATH DENIES . RESPIRATORY: HAVE YOU BEEN SICK IN THE PAST WEEK? YES--SINUS INFECTION--ON ANTIBIOTIC . FEVER NO . FLU LIKE SYMPTOMS? NO . COUGH YES, NON-PRODUCTIVE, DENIES . SHORTNESS OF BREATH DENIES . INTEGUMENTARY: DO YOU HAVE ANY RASHES OR OPEN SORES? NO . ALLERGIC/IMMUNO: ARE YOU ALLERGIC TO SHELLFISH OR IV DYE? NO . ANY NEW ALLERGIES? NO . PSYCHIATRIC: DO YOU HAVE THOUGHTS OF HURTING YOURSELF OR SOMEONE ELSE? NO . ARE YOU ABUSED, NEGLECTED, OR IN AN UNSAFE ENVIRONMENT? NO . ENDOCRINOLOGY: ARE YOU DIABETIC? YES . OTHER: DO YOU NEED ANY PRESCRIPTIONS? NO . IF YES, PLEASE LIST: ____ . ANY NEW PROBLEMS WITH YOUR MEDICATIONS? NO . WHEN DID YOU LAST EAT? ____ . WHEN DID YOU LAST DRINK? ____ . WHAT DID YOU LAST DRINK? ____ . NAME OF PERSON DRIVING YOU HOME? ____ . DO YOU HAVE ANY OTHER QUESTIONS OR CONCERNS YES IN A LOT OF PAIN WITH HER BACK. SHE STATED DR. PENALOZA WAS GOING TO INCREASE HER LYRICA BUT HER PHARMACY NEVER RECEIVED IT. . REVIEWED BY: PROVIDER: IVONNE ARGUETA . VITAL SIGNS WT 228.6 LBS, HT 60.5 IN, BMI 43.91 INDEX, BP 143/83 MM HG, HR 87 /MIN, RR 18 /MIN, TEMP 97.9 F, OXYGEN SAT % 96, NA INITIALS TL 1449, REVIEWED BY: AD. EXAMINATION GENERAL EXAMINATION: LUNGS:LUNG SOUNDS ARE CLEAR. HEART:HEART RATE REGULAR. MUSCULOSKELETAL:*, MUSCLE STRENGTH TESTING 3/5 BLE.PALPATION: POSITIVE FOR PAIN OVER L/S SPINE. POSITIVE FOR PAIN OVER L/S PARASPINALS. DIAGNOSTIC:MRI L/S SPINE 02-03-15-REVIEWED.. 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, LUMBAR REGION - M47.26 TREATMENT PROTRUSION OF LUMBAR INTERVERTEBRAL DISC INCREASE LYRICA CAPSULE, 200 MG, 1 CAP(S), ORALLY, TID, 30 DAY(S), 90 CAPSULE, REFILLS 2 SPINAL INJECTION PROCEDURES TRANSFORAMINAL EPIDURAL IVONNE MALDONADO 11/30/2016 3:58:26 PM > LEFT TRANSFORAMINAL-L4/5-L5/S1 PROCEDURE CODES FA211 ESTABILISHED PATIENT [facility] CHARGE G8730 PAIN ASSESS POS TOOL F/U PLAN DOC G8427 DOC MEDS VERIFIED W/PT OR RE DISPOSITION & COMMUNICATION FOLLOW UP 2WK POST (REASON: LEFT L4/5-L5/S1 TRANSFORAMINAL EPIDURAL) ELECTRONICALLY SIGNED BY KENDALL MOSLEY ON 12/01/2016 AT 04:04 PM EST DISCLAIMER : THIS IS A VISIT SUMMARY EXTRACTED FROM THE [employer] CHART. IT IS NOT A COPY OF THE [employer] PROGRESS NOTE. MTDD
== END ==
LOC: M PAIN 14:20
PROVIDERS: ATTEND Nurse Practitioner Family
DX: Z09 Encounter for follow-up examination after completed treatment for conditions other than malignant neoplasm (principal); G89.29 Other chronic pain; M51.26 Other intervertebral disc displacement, lumbar region; M47.26 Other spondylosis with radiculopathy, lumbar region; E03.9 Hypothyroidism, unspecified; K30 Functional dyspepsia; J30.89 Other allergic rhinitis; E55.9 Vitamin D deficiency, unspecified; M17.12 Unilateral primary osteoarthritis, left knee; E11.9 Type 2 diabetes mellitus without complications; E66.9 Obesity, unspecified; Z68.41 Body mass index [BMI] 40.0-44.9, adult; F31.9 Bipolar disorder, unspecified; G47.30 Sleep apnea, unspecified; K75.81 Nonalcoholic steatohepatitis (NASH); Z88.5 Allergy status to narcotic agent; Z88.8 Allergy status to other drugs, medicaments and biological substances; Z79.2 Long term (current) use of antibiotics; Z79.84 Long term (current) use of oral hypoglycemic drugs; Z79.899 Other long term (current) drug therapy

== ENCOUNTER → 2016-12-06 | Outpatient (CLI) | payer MEDICARE ==
[2016-12-06 13:31] LABS: BASO % 0.4 % (0.0-1.0); EOS # 0.1 K/mm3 (0.0-0.50); EOS % 0.7 % (0.0-3.0); LARGE UNSTAINED CELL # 0.1 K/mm3 (0.0-0.4); LARGE UNSTAINED CELL % 1.3 % (0.0-4.0); LYMPH # 3.1 K/mm3 (1.5-4.5); LYMPH % 26.3 % (24.0-44.0); MEAN CORPUSCULAR HEMOGLOBIN 27.3 pg (27.0-33.0); MEAN CORPUSCULAR HGB CONC 31.2 g/dl (32.0-36.5); MEAN CORPUSCULAR VOLUME 87.5 fl (80.0-96.0); MONO # 0.5 K/mm3 (0.0-0.8); MONO % 4.3 % (0.0-5.0); NEUTROPHILS # 7.5 K/mm3 (1.8-7.7); NEUTROPHILS % 67.1 % (36.0-66.0); PLATELET COUNT, AUTOMATED 401 k/mm3 (150-450); RED CELL DISTRIBUTION WIDTH 15.7 % (11.5-14.5); WHITE BLOOD COUNT 11.2 K/mm3 (4.0-10.0)
== END ==
LOC: M LAB 12:49
PROVIDERS: ATTEND Nurse Practitioner Family
DX: J01.01 Acute recurrent maxillary sinusitis (principal)

== ENCOUNTER → 2016-12-06 | Outpatient (CLI) | payer MEDICARE | LOC: M LAB 12:46 | PROVIDERS: ATTEND Psychiatry & Neurology Psychiatry | DX: Z51.81 Encounter for therapeutic drug level monitoring (principal); Z79.899 Other long term (current) drug therapy; J01.01 Acute recurrent maxillary sinusitis ==

== ENCOUNTER → 2016-12-07 | Outpatient (CLI) | payer MEDICARE ==
--- NOTE | 2016-12-07 09:40 | REP ---
MAXILLOFACIAL CT WITHOUT CONTRAST: HISTORY: Recurrent sinusitis. COMPARISON: 09/19/2008. The frontal sinuses are hypoplastic. The sinuses are clear. The ostiomeatal units are patent. The middle and inferior nasal turbinates are partially paradoxical. There is very minimal deviation of the nasal septum to the right. The cribriform plate, medial heath of the orbits and optic canals are intact. The carotid canals form a segment of the posterolateral heath of the sphenoid sinus. IMPRESSION: There is no acute or chronic sinusitis. Signed by Omid Valdez MD 12/07/2016 10:15 A
== END ==
LOC: M RAD 08:46
PROVIDERS: ATTEND Nurse Practitioner Family
DX: J32.9 Chronic sinusitis, unspecified (principal)

== ENCOUNTER → 2017-01-03 | Outpatient (CLI) | payer MEDICARE ==
[~2017-01-03] MED LIST changes: +BUPIVACAINE HCL 0.25% 30 ML VIAL As Ordered ONE; +ISOVUE-M 300 61% 15ML VIAL (Q9967) As Ordered ONE; +LIDOCAINE 1% SDV INJ 30 ML VIAL As Ordered ONE; +MIDAZOLAM INJ 2 MG/2 ML VIAL (J2250) As Ordered ONE; +dexameTHASONE 10 MG/1 ML VIAL PRES.FREE (J1100) As Ordered ONE; +fentaNYL 100 MCG/2 ML INJECTION (J3010) As Ordered ONE
--- NOTE | 2017-01-03 22:41 | REP ---
Partial lumbar spine series: Seven views. History: Transforaminal epidural injection procedure for pain. 1 minute 47 seconds of fluoroscopy time is reported. Findings: A sequence of seven fluoroscopically obtained last image hold spot radiographs of the lumbar spine document needle position and contrast injection associated with injection procedure. Signed by Kevin Lopez MD 01/04/2017 08:28 A
--- NOTE | 2017-01-16 02:37 | ECWPNPC ---
PATIENT NAME: BIENVENIDO RDZ : 1965 GENDER: FEMALE VISIT DATE: 01/03/2017 DISCHARGE DATE: 01/03/17 1349 VISIT LOCKED DATE TIME: PHYSICIAN: WILMAR PENALOZA RESOURCE: WILMAR PENALOZA REASON FOR APPOINTMENT 1. LEFT L4/5-L5/S1 TRANSFORAMINAL EPIDURAL HISTORY OF PRESENT ILLNESS HISTORY OF PRESENT ILLNESS: PAIN THE PATIENT DESCRIBES THE PAIN... FALL RISK SCREENING: SCREENING :NO FALLS IN THE PAST YEAR CURRENT MEDICATIONS TAKING MAXALT 10 MG TABLET [address] PLUMMER ORALLY NEEDED, NOTES: 01/02/172229 TAKING CYMBALTA 60 MG CAPSULE DELAYED RELEASE PARTICLES [address] PLUMMER ORALLY TWICE DAILY, NOTES: 01/03/17899 TAKING TYLENOL WITH CODEINE #3 300-30 MG TABLET 1 TABLET NEEDED ORALLY AT BEDTIME, NOTES: 01/02/172229 TAKING NEBULIZER/TUBING/MOUTHPIECE DX: 466 KIT DIRECTED FOR INHALATION TX 4 TIMES DAILY NEEDED TAKING IPRATROPIUM-ALBUTEROL 0.5-2.5 (3) MG/3ML SOLUTION 3 ML INHALATION VIA NEBULIZER FOUR TIMES A DAY, NOTES: > 1 YEAR TAKING TIZANIDINE HCL 2 MG TABLET 2 TABS NEEDED ORALLY AT BEDTIME, NOTES: 01/02/172229 TAKING TYLENOL 8 HOUR ARTHRITIS PAIN 650 MG TABLET EXTENDED RELEASE 2 TABLETS NEEDED ORALLY DAILY, NOTES: 01/03/17899 TAKING DUAVEE 0.45-20 MG TABLET 1 TABLET ORALLY ONCE A DAY, NOTES: 01/03/17899 TAKING DIVALPROEX SODIUM ER 250 MG TABLET EXTENDED RELEASE 24 HOUR TAKE ONE TABLET BY MOUTH EVERY EVENING ORAL , NOTES: 01/02/172229 TAKING OSTEO BI-FLEX TRIPLE STRENGTH - TABLET 2 TAB ORALLY DAILY, NOTES: 01/02/17799 TAKING VOLTAREN 1 % GEL 4GM TO BOTH KNEES TRANSDERMAL TWICE DAILY NEEDED, NOTES: > 1 WEEK TAKING LYRICA 200 MG CAPSULE 1 CAP(S) ORALLY TID, NOTES: 01/03/17899 TAKING VENTOLIN HFA 108 (90 BASE) MCG/ACT AEROSOL SOLUTION 2 PUFFS INHALATION EVERY 4 HOURS NEEDED, NOTES: 01/01/17 1500 TAKING ZYRTEC ALLERGY 10 MG TABLET 1 TABLET ORALLY ONCE A DAY, NOTES: 01/02/172229 TAKING FLUTICASONE PROPIONATE 50 MCG/ACT SUSPENSION 1 SPRAY IN EACH NOSTRIL NASALLY ONCE A DAY, NOTES: 01/02/172229 TAKING METFORMIN HCL 500 MG TABLET EXTENDED RELEASE 24 HOUR 2 TABS ORALLY DAILY WITH MEALS, NOTES: 01/02/172229 TAKING OMEPRAZOLE 40 MG CAPSULE DELAYED RELEASE 1 CAPSULE BEFORE MEAL ORALLY ONCE A DAY, NOTES: 01/03/17 0900 TAKING DRISDOL 45416 UNIT CAPSULE 1 CAPSULE WITH MEAL ORALLY ONCE A WEEK, NOTES: 12/31/16 1500 TAKING LEVOTHYROXINE SODIUM 150 MCG TABLET 1 TABLET EVERY MORNING ON AN EMPTY STOMACH ORALLY ONCE A DAY, NOTES: 01/03/17 0900 TAKING LISINOPRIL 5 MG TABLET 1 TAB ORALLY DAILY, NOTES: 01/03/17 09 NOT-TAKING SINGULAIR 10 MG TABLET 1 TABLET IN THE EVENING ORALLY ONCE A DAY NOT-TAKING VITAMIN D 1000 UNIT TABLET 1 TABLET ORALLY ONCE A DAY NOT-TAKING AMOXICILLIN-POT CLAVULANATE 875-125 MG TABLET 1 TABLET ORALLY EVERY 12 HRS NOT-TAKING VITAMIN D (ERGOCALCIFEROL) 92991 UNIT CAPSULE TAKE ONE CAPSULE BY MOUTH ONCE A WEEK WITH A MEAL NOT-TAKING MULTIVITAMINS OTC TABLET 2 TABS BIOFLEX ORALLY DAILY NOT-TAKING ESTRADIOL-NORETHINDRONE ACET 0.5-0.1 MG TABLET 1 TABLET ORALLY ONCE A DAY NOT-TAKING LATUDA 20 MG TABLET 2 TABLETS WITH FOOD ORALLY ONCE A DAY NOT-TAKING ACTIVELLA 0.5-0.1 MG TABLET 1 TABLET ORALLY ONCE A DAY MEDICATION LIST REVIEWED AND RECONCILED WITH THE PATIENT PAST MEDICAL HISTORY HYPOTHYROIDISM, AQUIRED DYSPEPSIA, GERD WITH DYSPHAGIA ALLERGIC RHINITIS, SEASONAL MORBID OBESITY BACK PAIN/ DEG DISC DISEASE - [facility] FIBROMYALGIA - DR PLUMMER OBESITY BIPOLAR - DR HILL SLEEP APNEA - DR HERCULES NONALCOHOLIC HEPATOSTEATOSIS KNEE DETERIATION ALLERGIES VICODIN: ITCHING: ALLERGY LAMICTAL: RASH: ALLERGY GEODON: NUMBNESS/TINGLING: ALLERGY SOMA: DIZZINESS: SIDE EFFECTS PERCOCET: ITCHING: ALLERGY PLAQUENIL: DIARRHEA: ALLERGY LATUDA: VIOENT ANGRY EPISODES: SIDE EFFECTS SOCIAL HISTORY GENERAL: PAIN CLINIC PFS, CLERGY, PUBLIC HEALTH REFERRALS CLERGY REFERRAL NEEDED?NO WAS THE PROVIDER NOTIFIED OF ANY PERTINENT INFO?NO PFS REFERRAL NEEDED?NO PUBLIC HEALTH REFERRAL NEEDED?NO PATIENT: ____. REVIEW OF SYSTEMS CONSTITUTIONAL: ANY CHANGE IN YOUR MEDICAL CONDITION? NO . CHILLS NO . FEVER NO . INFECTION: DO YOU HAVE NEW INFECTIONS? NO . DO YOU HAVE HISTORY OF MRSA? NO . MUSCULOSKELETAL: ANY NEW PATTERNS OF PAIN OR NUMBNESS? YES PT REPORTS INCREASED FREQUENCY AND INTENSITY OF NUMBNESS/TINGLING . GASTROENTEROLOGY: ANY NEW CHANGE IN BOWEL CONTROL? NO . GENITOURINARY: ANY NEW CHANGE IN BLADDER CONTROL? NO . IS THERE A CHANCE YOU COULD BE ? NO . HEMATOLOGY/LYMPH: DO YOU TAKE ANY BLOOD THINNERS? (FOR EXAMPLE- COUMADIN, PLAVIX, AGGRENOX, PLATEL, PRADAXA, OR XARELTO) NO . WHEN WAS YOUR LAST DOSE? DATE: TIME: . NEUROLOGY: HAVE YOU FALLEN IN THE PAST 6 MONTHS? NO . ANY NEW EXTREMITY NUMBNESS OR WEAKNESS? NO . CARDIOLOGY: DO YOU HAVE A PACEMAKER OR DEFIBRILLATOR? NO . RESPIRATORY: HAVE YOU BEEN SICK IN THE PAST WEEK? NO . FEVER NO . FLU LIKE SYMPTOMS? NO . COUGH NO . INTEGUMENTARY: DO YOU HAVE ANY RASHES OR OPEN SORES? NO . ALLERGIC/IMMUNO: ARE YOU ALLERGIC TO SHELLFISH OR IV DYE? NO . ANY NEW ALLERGIES? NO . PSYCHIATRIC: DO YOU HAVE THOUGHTS OF HURTING YOURSELF OR SOMEONE ELSE? NO . ARE YOU ABUSED, NEGLECTED, OR IN AN UNSAFE ENVIRONMENT? NO . ENDOCRINOLOGY: ARE YOU DIABETIC? YES BORDERLINE . OTHER: DO YOU NEED ANY PRESCRIPTIONS? NO . IF YES, PLEASE LIST: ____ . ANY NEW PROBLEMS WITH YOUR MEDICATIONS? YES PT REPORTS INCREASED WEIGHT GAIN, AND OCCASIONAL DIFFICULTY WITH FINDING WORDS SINCE STARTING DEPAKOTE LAST MONTH . WHEN DID YOU LAST EAT? ____01/02/17 2230 . WHEN DID YOU LAST DRINK? ____01/03/17 0900 . WHAT DID YOU LAST DRINK? ____WATER . NAME OF PERSON DRIVING YOU HOME? ____HUSBAND ED . DO YOU HAVE ANY OTHER QUESTIONS OR CONCERNS NO . REVIEWED BY: PROVIDER: . VITAL SIGNS WT 230.0 LBS, HT 60.5 IN, BMI 44.17 INDEX, BP 146/75 MM HG, HR 83 /MIN, RR 18 /MIN, TEMP 98.3 F, OXYGEN SAT % 98%, SAFE IN ENV? (Y/N) YES, NA INITIALS TL 1103, REVIEWED BY: LAS. SANCHEZ INTERVERTEBRAL DISC DISORDERS WITH RADICULOPATHY, LUMBAR REGION - M51.16 (PRIMARY) PROCEDURES PN LUMBAR TRANSFORAMINAL BLOCKS PRE PROCEDURE DIAGNOSIS LUMBAR DISC DISORDER WITH RADICULOPATHY POST PROCEDURE DIAGNOSIS LUMBAR DISC DISORDER WITH RADICULOPATHY PROCEDURE RIGHT L4 AND RIGHT L5 TRANSFORAMINAL EPIDURAL STEROID INJECTION UNDER FLUOROSCOPIC GUIDANCE SURGEON DR WILMAR PENALOZA BOAT LOADER HELPER NONE ANESTHESIA IV SEDATION WITH LOCAL PRE PROCEDURE NOTE PATIENT WITH HISTORY OF CHRONIC LOW BACK PAIN. I EVALUATE THE PATIENT AND REVIEWED THE CHART. I WENT OVER THE RISKS, ALTERNATIVES, AND BENEFITS ASSOCIATED WITH THIS PROCEDURE. THE PATIENT WOULD LIKE TO PROCEED AND GIVE CONSENT TO PERFORMED THE PROCEDURE WITH IV SEDATION DUE TO PAIN, DISCOMFORT AND ANXIETY. THE PATIENT DENIES UNEXPLAINABLE WEIGHT LOSS, FEVER, CHILLS, OR CHANGES IN URINARY OR BOWEL CONTROL DESCRIPTION OF PROCEDURE THE PATIENT WAS BROUGHT TO THE PROCEDURE ROOM AND PLACED IN THE PRONE POSITION. THE LUMBOSACRAL AREA WAS CLEANED WITH BETADINE SOLUTION AND DRAPED ASEPTICALLY. THE PROCEDURE WAS DONE UNDER STERILE CONDITIONS. I CHECKED LATERALITY AND THE LEVEL WHERE THE PROCEDURE WAS GOING TO BE PERFORMED WITH THE PATIENT AND THE SUPPORTING STAFF AT THE MOMENT OF THE TIME OUT IN THE PROCEDURE ROOM. PATIENT RECEIVED VERSED 1 MG AND FENTANYL 50 MCG THROUGH IV PRIOR TO PLACEMENT OF NEEDLES. UNDER FLUOROSCOPIC GUIDANCE, TARGETS WERE SELECTED AT THE RIGHT TRANSFORAMINAL OPENING OF L4 AND RIGHT TRANSFORAMINAL OPENING OF L5. TARGET POINT WAS SELECTED AFTER LATERAL ROTATION AND TILT OF THE MAGNIFIER OF THE C-ARM. LIDOCAINE 0.5% WAS USED TO NUMB THE SKIN AND THE SUBCUTANEOUS TISSUE BELOW IT. AN EPIMED INTRODUCER 18-GAUGE WAS ADVANCED UNTIL WE WENT CLOSE TO THE SELECTED TRANSFORAMINAL OPENINGS. AFTER PROPER POSITION OF THE NEEDLES WAS ACHIEVED, A 22-GAUGE EPIMED NEEDLE WAS PLACED INSIDE OF THE INTRODUCER AND ADVANCED TO THE TRANSFORAMINAL OPENING OF THE SELECTED SITES. WHEN PROPER POSITION OF THE NEEDLE WAS ACHIEVED, ISOVUE M DYE 30%, 0.25 ML, WAS INJECTED SHOWING ADEQUATE SPREAD OF THE DYE. THIS WAS DONE UNDER DIGITAL SUBTRACTION AND ANGIOGRAPHY. THERE WAS NO VASCULAR UPDATE. THEN, A SOLUTION OF 2 ML OF BUPIVACAINE 0.25% AND DEXAMETHASONE 10 MG WAS INJECTED AT EACH SITE. THERE WAS NO EVIDENCE OF BLOOD, PARESTHESIA OR CEREBROSPINAL FLUID DURING THE PROCEDURE. THE PATIENT WAS SENT TO THE RECOVERY ROOM. THE PATIENT WAS MOVING THE EXTREMITIES AND DOING WELL. THERE WAS NO COMPLICATION DURING THE PROCEDURE. FLUOROSCOPY TIME WAS 1 MINUTE 41 SECONDS POST PROCEDURE NOTE THE PROCEDURE DONE WAS DISCUSSED WITH THE PATIENT. THE PATIENT WILL BE SEEN IN A FOLLOW UP IN THE NEXT FEW WEEKS. INSTRUCTIONS WERE GIVEN, QUESTIONS WERE ANSWERED, AND THE PATIENT EXPRESSED UNDERSTANDING AND AGREES WITH THE PLAN. I, DALIA COTE, DOCUMENTED THE ABOVE INFORMATION ACTING A SCRIBE FOR DR. PENALOZA. I, DR. PENALOZA, HAVE REVIEWED THE ABOVE DOCUMENT, SCRIBED BY DALIA COTE, AND I VERIFY THAT IT IS [facility]UR[facility] DIAGNOSTIC [facility]AG[facility] FLUORO GUIDE SPINE INJECTION (PAIN)[id number] PROCEDURE CODES 34121 INJ FORAMEN EPIDURAL L/S 01580 INJ FORAMEN EPIDURAL ADD-ON 6045F RADXPS IN END [id number] PXD 42742 MOD SED SAME PHYS/QHP 5/>YRS 76324 MOD SED SAME PHYS/QHP EA DISPOSITION & COMMUNICATION FOLLOW UP 3 WEEKS ELECTRONICALLY SIGNED BY WILMAR PENALOZA MD ON 01/15/2017 AT 01:42 PM EDT DISCLAIMER : THIS IS A VISIT SUMMARY EXTRACTED FROM THE [employer] CHART. IT IS NOT A COPY OF THE [employer] PROGRESS NOTE. MTDD
== END ==
LOC: M PAIN 11:00
PROVIDERS: ATTEND Anesthesiology
DX: G89.29 Other chronic pain (principal); M51.16 Intervertebral disc disorders with radiculopathy, lumbar region; E03.9 Hypothyroidism, unspecified; K30 Functional dyspepsia; J30.89 Other allergic rhinitis; E66.9 Obesity, unspecified; Z68.41 Body mass index [BMI] 40.0-44.9, adult; F31.9 Bipolar disorder, unspecified; G47.30 Sleep apnea, unspecified; K75.81 Nonalcoholic steatohepatitis (NASH); M17.12 Unilateral primary osteoarthritis, left knee; E88.81 Metabolic syndrome and other insulin resistance; E55.9 Vitamin D deficiency, unspecified; D64.89 Other specified anemias; I10 Essential (primary) hypertension; D72.9 Disorder of white blood cells, unspecified; Z88.5 Allergy status to narcotic agent; Z88.8 Allergy status to other drugs, medicaments and biological substances; Z79.899 Other long term (current) drug therapy
CPT/HCPCS: 64483; 64484; 99152; 99153; J1100; J2250; J3010; Q9967

== ENCOUNTER → 2017-01-16 | Outpatient (CLI) | payer MEDICARE ==
[~2017-01-16] MED LIST changes: -BUPIVACAINE HCL 0.25% 30 ML VIAL As Ordered ONE; -ISOVUE-M 300 61% 15ML VIAL (Q9967) As Ordered ONE; -LIDOCAINE 1% SDV INJ 30 ML VIAL As Ordered ONE; -MIDAZOLAM INJ 2 MG/2 ML VIAL (J2250) As Ordered ONE; -dexameTHASONE 10 MG/1 ML VIAL PRES.FREE (J1100) As Ordered ONE; -fentaNYL 100 MCG/2 ML INJECTION (J3010) As Ordered ONE
--- NOTE | 2017-01-26 23:42 | ECWPNPC ---
PATIENT NAME: BIENVENIDO RDZ : 1965 GENDER: FEMALE VISIT DATE: 01/16/2017 DISCHARGE DATE: 01/16/17 1606 VISIT LOCKED DATE TIME: PHYSICIAN: IVONNE GORE RESOURCE: IVONNE GORE REASON FOR APPOINTMENT 1. POST PROCEDURE INCREASED PAIN HISTORY OF PRESENT ILLNESS HISTORY OF PRESENT ILLNESS: HERE ON EMERGENT BASIS.REPORTING 14 DAYS IMPROVEMENT IN LEFT LOW BACK AND LEFT LEG AFTER LEFT L4/5-L5/S1 TRANSFORAMINAL STEROID INJECTION ON 01-03-17 .STATES LAST WEEK PAIN LEVEL ESCALATED AND SHE WAS IN BED FOR 2-3 DAYS.SHE IS CRYING AND QUITE DISTRAUGHT TODAY. IS WITH HER TODAY.DENIES ANY INJURY.NO FEVER OR ILLNESS.DENIES BOWEL OR BLADDER INCONTINENCE.RATING PAIN VAS 10/10.PAIN IS LOCATED ACROSS LOW BACK.DESCRIBES PAIN CONSTANT BURNING AND ACHING. PAIN THE PATIENT DESCRIBES THE PAIN... FALL RISK SCREENING: SCREENING :NO FALLS IN THE PAST YEAR CURRENT MEDICATIONS TAKING MAXALT 10 MG TABLET [address] PLUMMER ORALLY NEEDED TAKING CYMBALTA 60 MG CAPSULE DELAYED RELEASE PARTICLES [address] PLUMMER ORALLY TWICE DAILY TAKING TYLENOL WITH CODEINE #3 300-30 MG TABLET 1 TABLET NEEDED ORALLY AT BEDTIME TAKING NEBULIZER/TUBING/MOUTHPIECE DX: 466 KIT DIRECTED FOR INHALATION TX 4 TIMES DAILY NEEDED TAKING IPRATROPIUM-ALBUTEROL 0.5-2.5 (3) MG/3ML SOLUTION 3 ML INHALATION VIA NEBULIZER FOUR TIMES A DAY TAKING TIZANIDINE HCL 2 MG TABLET 2 TABS NEEDED ORALLY AT BEDTIME TAKING TYLENOL 8 HOUR ARTHRITIS PAIN 650 MG TABLET EXTENDED RELEASE 2 TABLETS NEEDED ORALLY DAILY TAKING DUAVEE 0.45-20 MG TABLET 1 TABLET ORALLY ONCE A DAY TAKING DIVALPROEX SODIUM ER 250 MG TABLET EXTENDED RELEASE 24 HOUR TAKE ONE TABLET BY MOUTH EVERY EVENING ORAL TAKING OSTEO BI-FLEX TRIPLE STRENGTH - TABLET 2 TAB ORALLY DAILY TAKING VOLTAREN 1 % GEL 4GM TO BOTH KNEES TRANSDERMAL TWICE DAILY NEEDED TAKING LYRICA 200 MG CAPSULE 1 CAP(S) ORALLY TID TAKING VENTOLIN HFA 108 (90 BASE) MCG/ACT AEROSOL SOLUTION 2 PUFFS INHALATION EVERY 4 HOURS NEEDED TAKING ZYRTEC ALLERGY 10 MG TABLET 1 TABLET ORALLY ONCE A DAY TAKING FLUTICASONE PROPIONATE 50 MCG/ACT SUSPENSION 1 SPRAY IN EACH NOSTRIL NASALLY ONCE A DAY TAKING METFORMIN HCL 500 MG TABLET EXTENDED RELEASE 24 HOUR 2 TABS ORALLY DAILY WITH MEALS TAKING OMEPRAZOLE 40 MG CAPSULE DELAYED RELEASE 1 CAPSULE BEFORE MEAL ORALLY ONCE A DAY TAKING DRISDOL 56753 UNIT CAPSULE 1 CAPSULE WITH MEAL ORALLY ONCE A WEEK TAKING LEVOTHYROXINE SODIUM 75 MCG TABLET 1 TABLET EVERY MORNING ON AN EMPTY STOMACH ORALLY ONCE A DAY TAKING LISINOPRIL 5 MG TABLET 1 TAB ORALLY DAILY NOT-TAKING SINGULAIR 10 MG TABLET 1 TABLET IN THE EVENING ORALLY ONCE A DAY NOT-TAKING VITAMIN D 1000 UNIT TABLET 1 TABLET ORALLY ONCE A DAY NOT-TAKING AMOXICILLIN-POT CLAVULANATE 875-125 MG TABLET 1 TABLET ORALLY EVERY 12 HRS NOT-TAKING VITAMIN D (ERGOCALCIFEROL) 00745 UNIT CAPSULE TAKE ONE CAPSULE BY MOUTH ONCE A WEEK WITH A MEAL NOT-TAKING MULTIVITAMINS OTC TABLET 2 TABS BIOFLEX ORALLY DAILY NOT-TAKING ESTRADIOL-NORETHINDRONE ACET 0.5-0.1 MG TABLET 1 TABLET ORALLY ONCE A DAY NOT-TAKING LATUDA 20 MG TABLET 2 TABLETS WITH FOOD ORALLY ONCE A DAY NOT-TAKING ACTIVELLA 0.5-0.1 MG TABLET 1 TABLET ORALLY ONCE A DAY MEDICATION LIST REVIEWED AND RECONCILED WITH THE PATIENT PAST MEDICAL HISTORY HYPOTHYROIDISM, AQUIRED DYSPEPSIA, GERD WITH DYSPHAGIA ALLERGIC RHINITIS, SEASONAL MORBID OBESITY BACK PAIN/ DEG DISC DISEASE - [facility] PAIN [facility] FIBROMYALGIA - DR PLUMMER OBESITY BIPOLAR - DR HILL SLEEP APNEA - DR HERCULES NONALCOHOLIC HEPATOSTEATOSIS KNEE DETERIATION ALLERGIES VICODIN: ITCHING: ALLERGY LAMICTAL: RASH: ALLERGY GEODON: NUMBNESS/TINGLING: ALLERGY SOMA: DIZZINESS: SIDE EFFECTS PERCOCET: ITCHING: ALLERGY PLAQUENIL: DIARRHEA: ALLERGY LATUDA: VIOENT ANGRY EPISODES: SIDE EFFECTS SOCIAL HISTORY GENERAL: PAIN CLINIC PFS, CLERGY, PUBLIC HEALTH REFERRALS CLERGY REFERRAL NEEDED?NO WAS THE PROVIDER NOTIFIED OF ANY PERTINENT INFO?NO PFS REFERRAL NEEDED?NO PUBLIC HEALTH REFERRAL NEEDED?NO PATIENT: ____. REVIEW OF SYSTEMS CONSTITUTIONAL: ANY CHANGE IN YOUR MEDICAL CONDITION? YES, TINGLING ALL OVER . CHILLS NO . FEVER NO . INFECTION: DO YOU HAVE NEW INFECTIONS? NO . DO YOU HAVE HISTORY OF MRSA? NO . MUSCULOSKELETAL: ANY NEW PATTERNS OF PAIN OR NUMBNESS? YES, &QUOT;PRICKLY/TINGLING&QUOT; SENSATION FROM NECK DOWN BOTH ARMS . GASTROENTEROLOGY: ANY NEW CHANGE IN BOWEL CONTROL? NO . GENITOURINARY: ANY NEW CHANGE IN BLADDER CONTROL? NO . IS THERE A CHANCE YOU COULD BE ? NO . HEMATOLOGY/LYMPH: DO YOU TAKE ANY BLOOD THINNERS? (FOR EXAMPLE- COUMADIN, PLAVIX, AGGRENOX, PLATEL, PRADAXA, OR XARELTO) NO . WHEN WAS YOUR LAST DOSE? DATE: TIME: . NEUROLOGY: HAVE YOU FALLEN IN THE PAST 6 MONTHS? NO . ANY NEW EXTREMITY NUMBNESS OR WEAKNESS? NO . CARDIOLOGY: DO YOU HAVE A PACEMAKER OR DEFIBRILLATOR? NO . RESPIRATORY: HAVE YOU BEEN SICK IN THE PAST WEEK? NO . FEVER NO . FLU LIKE SYMPTOMS? NO . COUGH NO . INTEGUMENTARY: DO YOU HAVE ANY RASHES OR OPEN SORES? NO . ALLERGIC/IMMUNO: ARE YOU ALLERGIC TO SHELLFISH OR IV DYE? NO . ANY NEW ALLERGIES? NO . PSYCHIATRIC: DO YOU HAVE THOUGHTS OF HURTING YOURSELF OR SOMEONE ELSE? NO . ARE YOU ABUSED, NEGLECTED, OR IN AN UNSAFE ENVIRONMENT? NO . ENDOCRINOLOGY: ARE YOU DIABETIC? YES . OTHER: DO YOU NEED ANY PRESCRIPTIONS? NO . IF YES, PLEASE LIST: ____ . ANY NEW PROBLEMS WITH YOUR MEDICATIONS? NO . WHEN DID YOU LAST EAT? ____ . WHEN DID YOU LAST DRINK? ____ . WHAT DID YOU LAST DRINK? ____ . NAME OF PERSON DRIVING YOU HOME? ____ . DO YOU HAVE ANY OTHER QUESTIONS OR CONCERNS NO . REVIEWED BY: PROVIDER: IVONNE ARGUETA . VITAL SIGNS WT 234 LBS, HT 60.5 IN, BMI 44.94 INDEX, BP 145/75 MM HG, HR 91 /MIN, RR 18 /MIN, TEMP 97.5 F, OXYGEN SAT % 99%, NA INITIALS SC 15:10, REVIEWED BY: CS. EXAMINATION GENERAL EXAMINATION: LUNGS:LUNG SOUNDS ARE CLEAR. HEART:HEART RATE REGULAR. MUSCULOSKELETAL:*, MUSCLE STRENGTH TESTING 3/5 BLE.PALPATION: POSITIVE FOR PAIN OVER L/S SPINE. POSITIVE FOR PAIN OVER L/S PARASPINALS. MULTIPLE AREAS OF TENDER SPOTS UPPER AND LOWER TORSO INDICATIVE OF FIBROMYALGIA.SPECIFIC POINT TENDERNESS OVER C-SPINE. DIAGNOSTIC:MRI L/S SPINE 02-03-15-REVIEWED. MRI [id number]. 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 PROCEDURE CODES FA211 ESTABILISHED PATIENT [facility] FACILITY CHARGE G8730 PAIN ASSESS POS TOOL F/U PLAN DOC G8427 DOC MEDS VERIFIED W/PT OR RE DISPOSITION & COMMUNICATION FOLLOW UP HAS SCHEDULED APT W ME ELECTRONICALLY SIGNED BY KENDALL MOSLEY ON 01/26/2017 AT 04:19 PM EDT DISCLAIMER : THIS IS A VISIT SUMMARY EXTRACTED FROM THE [email or web address] CHART. IT IS NOT A COPY OF THE [email or web address] PROGRESS NOTE. MTDD
== END | disposition home or self-care (01) ==
LOC: M PAIN 14:00
PROVIDERS: ATTEND Nurse Practitioner Family
DX: G89.29 Other chronic pain (principal); M51.26 Other intervertebral disc displacement, lumbar region; M47.26 Other spondylosis with radiculopathy, lumbar region; M79.1 Myalgia; E03.9 Hypothyroidism, unspecified; J30.9 Allergic rhinitis, unspecified; E66.8 Other obesity; G47.30 Sleep apnea, unspecified; Z79.899 Other long term (current) drug therapy; Z79.51 Long term (current) use of inhaled steroids; Z79.84 Long term (current) use of oral hypoglycemic drugs; Z88.5 Allergy status to narcotic agent; Z88.8 Allergy status to other drugs, medicaments and biological substances

== ENCOUNTER → 2017-01-30 | Outpatient (CLI) | payer MEDICARE ==
--- NOTE | 2017-01-31 00:56 | ECWPNPC ---
PATIENT NAME: BIENVENIDO RDZ : 1965 GENDER: FEMALE VISIT DATE: 01/30/2017 DISCHARGE DATE: 01/30/17 1115 VISIT LOCKED DATE TIME: PHYSICIAN: IVONNE GORE RESOURCE: IVONNE GORE REASON FOR APPOINTMENT 1. POST PROCEDURE HISTORY OF PRESENT ILLNESS HISTORY OF PRESENT ILLNESS: HERE FOR F/U OF CHRONIC GENERALIZED PAIN.PAIN VAS 10/10.STATES PAIN AGGREVATES TO SEVERE BURNING LEVEL WITH WALKING SHORT DISTANCES IE 10FT.USING TYLENOL #3 3X DAILY SINCE LAST VISIT AND REPORTS 2-3HRS OF SOME IMPROVEMENT AFTER TAKING THIS.WE INCREASED LYRICA 200MG FROM BID TO TID LAST VISIT AND SHE DOES FEEL THIS IS HELPING WITH FIBROMYALGIA.DISCUSSED MEDICATION AND TREATMENT OPTIONS. PAIN THE PATIENT DESCRIBES THE PAIN... FALL RISK SCREENING: SCREENING :NO FALLS IN THE PAST YEAR CURRENT MEDICATIONS TAKING MAXALT 10 MG TABLET [address] PLUMMER ORALLY NEEDED TAKING CYMBALTA 60 MG CAPSULE DELAYED RELEASE PARTICLES [address] PLUMMER ORALLY TWICE DAILY TAKING NEBULIZER/TUBING/MOUTHPIECE DX: 466 KIT DIRECTED FOR INHALATION TX 4 TIMES DAILY NEEDED TAKING IPRATROPIUM-ALBUTEROL 0.5-2.5 (3) MG/3ML SOLUTION 3 ML INHALATION VIA NEBULIZER FOUR TIMES A DAY TAKING TIZANIDINE HCL 2 MG TABLET 2 TABS NEEDED ORALLY AT BEDTIME TAKING TYLENOL 8 HOUR ARTHRITIS PAIN 650 MG TABLET EXTENDED RELEASE 2 TABLETS NEEDED ORALLY DAILY TAKING DIVALPROEX SODIUM ER 250 MG TABLET EXTENDED RELEASE 24 HOUR TAKE ONE TABLET BY MOUTH EVERY EVENING ORAL TAKING OSTEO BI-FLEX TRIPLE STRENGTH - TABLET 2 TAB ORALLY DAILY TAKING VOLTAREN 1 % GEL 4GM TO BOTH KNEES TRANSDERMAL TWICE DAILY NEEDED TAKING LYRICA 200 MG CAPSULE 1 CAP(S) ORALLY TID TAKING VENTOLIN HFA 108 (90 BASE) MCG/ACT AEROSOL SOLUTION 2 PUFFS INHALATION EVERY 4 HOURS NEEDED TAKING ZYRTEC ALLERGY 10 MG TABLET 1 TABLET ORALLY ONCE A DAY TAKING FLUTICASONE PROPIONATE 50 MCG/ACT SUSPENSION 1 SPRAY IN EACH NOSTRIL NASALLY ONCE A DAY TAKING METFORMIN HCL 500 MG TABLET EXTENDED RELEASE 24 HOUR 2 TABS ORALLY DAILY WITH MEALS TAKING OMEPRAZOLE 40 MG CAPSULE DELAYED RELEASE 1 CAPSULE BEFORE MEAL ORALLY ONCE A DAY TAKING DRISDOL 26129 UNIT CAPSULE 1 CAPSULE WITH MEAL ORALLY ONCE A WEEK TAKING LEVOTHYROXINE SODIUM 75 MCG TABLET 1 TABLET EVERY MORNING ON AN EMPTY STOMACH ORALLY ONCE A DAY TAKING LISINOPRIL 5 MG TABLET 1 TAB ORALLY DAILY TAKING VITAMIN D (ERGOCALCIFEROL) 56312 UNIT CAPSULE TAKE ONE CAPSULE BY MOUTH ONCE A WEEK WITH A MEAL TAKING TYLENOL WITH CODEINE #3 300-30 MG TABLET 1 TABLET NEEDED ORALLY Q8H PRN MDD3 TAKING COMBIPATCH 0.05-0.25 MG/DAY PATCH TWICE WEEKLY 1 PATCH TO SKIN TRANSDERMAL TWO TIMES A WEEK NOT-TAKING SINGULAIR 10 MG TABLET 1 TABLET IN THE EVENING ORALLY ONCE A DAY NOT-TAKING VITAMIN D 1000 UNIT TABLET 1 TABLET ORALLY ONCE A DAY NOT-TAKING AMOXICILLIN-POT CLAVULANATE 875-125 MG TABLET 1 TABLET ORALLY EVERY 12 HRS NOT-TAKING MULTIVITAMINS OTC TABLET 2 TABS BIOFLEX ORALLY DAILY NOT-TAKING ESTRADIOL-NORETHINDRONE ACET 0.5-0.1 MG TABLET 1 TABLET ORALLY ONCE A DAY NOT-TAKING LATUDA 20 MG TABLET 2 TABLETS WITH FOOD ORALLY ONCE A DAY NOT-TAKING ACTIVELLA 0.5-0.1 MG TABLET 1 TABLET ORALLY ONCE A DAY MEDICATION LIST REVIEWED AND RECONCILED WITH THE PATIENT PAST MEDICAL HISTORY HYPOTHYROIDISM, AQUIRED DYSPEPSIA, GERD WITH DYSPHAGIA ALLERGIC RHINITIS, SEASONAL MORBID OBESITY BACK PAIN/ DEG DISC DISEASE - [facility] PAIN CLINIC FIBROMYALGIA - DR PLUMMER OBESITY BIPOLAR - DR HILL SLEEP APNEA - DR HERCULES NONALCOHOLIC HEPATOSTEATOSIS KNEE DETERIATION ALLERGIES VICODIN: ITCHING: ALLERGY LAMICTAL: RASH: ALLERGY GEODON: NUMBNESS/TINGLING: ALLERGY SOMA: DIZZINESS: SIDE EFFECTS PERCOCET: ITCHING: ALLERGY PLAQUENIL: DIARRHEA: ALLERGY LATUDA: VIOENT ANGRY EPISODES: SIDE EFFECTS REVIEW OF SYSTEMS CONSTITUTIONAL: ANY CHANGE IN YOUR MEDICAL CONDITION? YES, SORES IN MOUTH AND TOOTHPASTE IS CAUSING TONGUE BURNING, REDNESS AND SWELLING . CHILLS NO . FEVER NO . INFECTION: DO YOU HAVE NEW INFECTIONS? NO . DO YOU HAVE HISTORY OF MRSA? NO . MUSCULOSKELETAL: ANY NEW PATTERNS OF PAIN OR NUMBNESS? NO . GASTROENTEROLOGY: ANY NEW CHANGE IN BOWEL CONTROL? NO . GENITOURINARY: ANY NEW CHANGE IN BLADDER CONTROL? NO . IS THERE A CHANCE YOU COULD BE ? NO . HEMATOLOGY/LYMPH: DO YOU TAKE ANY BLOOD THINNERS? (FOR EXAMPLE- COUMADIN, PLAVIX, AGGRENOX, PLATEL, PRADAXA, OR XARELTO) NO . WHEN WAS YOUR LAST DOSE? DATE: TIME: . NEUROLOGY: HAVE YOU FALLEN IN THE PAST 6 MONTHS? YES . ANY NEW EXTREMITY NUMBNESS OR WEAKNESS? NO . CARDIOLOGY: DO YOU HAVE A PACEMAKER OR DEFIBRILLATOR? NO . RESPIRATORY: HAVE YOU BEEN SICK IN THE PAST WEEK? NO . FEVER NO . FLU LIKE SYMPTOMS? NO . COUGH NO . INTEGUMENTARY: DO YOU HAVE ANY RASHES OR OPEN SORES? NO . ALLERGIC/IMMUNO: ARE YOU ALLERGIC TO SHELLFISH OR IV DYE? NO . ANY NEW ALLERGIES? NO . PSYCHIATRIC: DO YOU HAVE THOUGHTS OF HURTING YOURSELF OR SOMEONE ELSE? NO . ARE YOU ABUSED, NEGLECTED, OR IN AN UNSAFE ENVIRONMENT? NO . ENDOCRINOLOGY: ARE YOU DIABETIC? YES, BORDERLINE . OTHER: DO YOU NEED ANY PRESCRIPTIONS? NO . IF YES, PLEASE LIST: ____ . ANY NEW PROBLEMS WITH YOUR MEDICATIONS? NO . WHEN DID YOU LAST EAT? ____ . WHEN DID YOU LAST DRINK? ____ . WHAT DID YOU LAST DRINK? ____ . NAME OF PERSON DRIVING YOU HOME? ____ . DO YOU HAVE ANY OTHER QUESTIONS OR CONCERNS NO . REVIEWED BY: PROVIDER: IVONNE ARGUETA . VITAL SIGNS WT 244 LBS, HT 60.5 IN, BMI 46.86 INDEX, BP 134/63 MM HG, HR 95 /MIN, RR 18 /MIN, TEMP 98.1 F, OXYGEN SAT % 95%, NA INITIALS AW 1032, REVIEWED BY: GRACE. EXAMINATION GENERAL EXAMINATION: LUNGS:LUNG SOUNDS ARE CLEAR. HEART:HEART RATE REGULAR. MUSCULOSKELETAL:*, MUSCLE STRENGTH TESTING 3/5 BLE.PALPATION: POSITIVE FOR PAIN OVER L/S SPINE. POSITIVE FOR PAIN OVER L/S PARASPINALS. MULTIPLE AREAS OF TENDER SPOTS UPPER AND LOWER TORSO INDICATIVE OF FIBROMYALGIA.SPECIFIC POINT TENDERNESS OVER C-SPINE. DIAGNOSTIC:MRI L/S SPINE 02-03-15-REVIEWED. MRI [id number]. 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 WITHOUT [id number] OTHERS CONTINUE TYLENOL WITH CODEINE #3 TABLET, 300-30 MG, 1 TABLET NEEDED, ORALLY, Q8H PRN MDD3 PROCEDURE CODES FA211 ESTABILISHED PATIENT [facility] CHARGE DISPOSITION & COMMUNICATION FOLLOW UP 4 WEEKS ELECTRONICALLY SIGNED BY KENDALL MOSLEY ON 01/30/2017 AT 12:53 PM EDT DISCLAIMER : THIS IS A VISIT SUMMARY EXTRACTED FROM THE [employer] CHART. IT IS NOT A COPY OF THE [employer] PROGRESS NOTE. MTDD
== END ==
LOC: M PAIN 10:20
PROVIDERS: ATTEND Nurse Practitioner Family
DX: G89.29 Other chronic pain (principal); M51.26 Other intervertebral disc displacement, lumbar region; M47.26 Other spondylosis with radiculopathy, lumbar region; M79.1 Myalgia; M54.2 Cervicalgia; E03.9 Hypothyroidism, unspecified; K30 Functional dyspepsia; J30.2 Other seasonal allergic rhinitis; E66.9 Obesity, unspecified; Z68.42 Body mass index [BMI] 45.0-49.9, adult; F31.9 Bipolar disorder, unspecified; G47.30 Sleep apnea, unspecified; K76.0 Fatty (change of) liver, not elsewhere classified; M17.12 Unilateral primary osteoarthritis, left knee; Z88.5 Allergy status to narcotic agent; Z88.8 Allergy status to other drugs, medicaments and biological substances; E88.81 Metabolic syndrome and other insulin resistance; D64.89 Other specified anemias; I10 Essential (primary) hypertension; Z79.84 Long term (current) use of oral hypoglycemic drugs; Z79.899 Other long term (current) drug therapy

== ENCOUNTER → 2017-02-28 | Outpatient (CLI) | payer MEDICARE ==
--- NOTE | 2017-03-21 02:04 | ECWPNPC ---
PATIENT NAME: BIENVENIDO RDZ : 1965 GENDER: FEMALE VISIT DATE: 02/28/2017 DISCHARGE DATE: 02/28/17 1121 VISIT LOCKED DATE TIME: PHYSICIAN: IVONNE GORE RESOURCE: IVONNE GORE REASON FOR APPOINTMENT 1. BACK AND NECK HISTORY OF PRESENT ILLNESS HISTORY OF PRESENT ILLNESS: HERE FOR F/U OF CHRONIC GENERALIZED PAIN.PAIN VAS 10/10.STATES PAIN AGGREVATES TO SEVERE BURNING LEVEL WITH WALKING SHORT DISTANCES IE 10FT.USING TYLENOL #3 3X PRN AND REPORTS 2-3HRS OF SOME IMPROVEMENT AFTER TAKING THIS.WE INCREASED LYRICA 200MG FROM BID TO TID LAST VISIT AND SHE IS FORGETTING MIDDAY DOSE.DISCUSSED MEDICATION AND TREATMENT OPTIONS.WILL BE HAVING MRI'S I ORDERED THIS WEEK. PAIN THE PATIENT DESCRIBES THE PAIN... THE PATIENT DESCRIBES THE PAIN... FALL RISK SCREENING: SCREENING :NO FALLS IN THE PAST YEAR CURRENT MEDICATIONS TAKING MAXALT 10 MG TABLET [address] PLUMMER ORALLY NEEDED TAKING CYMBALTA 60 MG CAPSULE DELAYED RELEASE PARTICLES [address] PLUMMER ORALLY TWICE DAILY TAKING NEBULIZER/TUBING/MOUTHPIECE DX: 466 KIT DIRECTED FOR INHALATION TX 4 TIMES DAILY NEEDED TAKING IPRATROPIUM-ALBUTEROL 0.5-2.5 (3) MG/3ML SOLUTION 3 ML INHALATION VIA NEBULIZER FOUR TIMES A DAY TAKING TYLENOL 8 HOUR ARTHRITIS PAIN 650 MG TABLET EXTENDED RELEASE 2 TABLETS NEEDED ORALLY DAILY TAKING DIVALPROEX SODIUM ER 250 MG TABLET EXTENDED RELEASE 24 HOUR TAKE ONE TABLET BY MOUTH EVERY EVENING ORAL TAKING OSTEO BI-FLEX TRIPLE STRENGTH - TABLET 2 TAB ORALLY DAILY TAKING VENTOLIN HFA 108 (90 BASE) MCG/ACT AEROSOL SOLUTION 2 PUFFS INHALATION EVERY 4 HOURS NEEDED TAKING ZYRTEC ALLERGY 10 MG TABLET 1 TABLET ORALLY ONCE A DAY TAKING FLUTICASONE PROPIONATE 50 MCG/ACT SUSPENSION 1 SPRAY IN EACH NOSTRIL NASALLY ONCE A DAY TAKING OMEPRAZOLE 40 MG CAPSULE DELAYED RELEASE 1 CAPSULE BEFORE MEAL ORALLY ONCE A DAY TAKING DRISDOL 05911 UNIT CAPSULE 1 CAPSULE WITH MEAL ORALLY ONCE A WEEK TAKING LEVOTHYROXINE SODIUM 75 MCG TABLET 1 TABLET EVERY MORNING ON AN EMPTY STOMACH ORALLY ONCE A DAY TAKING VITAMIN D (ERGOCALCIFEROL) 05772 UNIT CAPSULE TAKE ONE CAPSULE BY MOUTH ONCE A WEEK WITH A MEAL TAKING COMBIPATCH 0.05-0.25 MG/DAY PATCH TWICE WEEKLY 1 PATCH TO SKIN TRANSDERMAL TWO TIMES A WEEK TAKING LYRICA 200 MG CAPSULE 1 CAP(S) ORALLY TID TAKING TYLENOL WITH CODEINE #3 300-30 MG TABLET 1 TABLET NEEDED ORALLY Q8H PRN MDD3 NOT-TAKING TIZANIDINE HCL 2 MG TABLET 2 TABS NEEDED ORALLY AT BEDTIME NOT-TAKING VOLTAREN 1 % GEL 4GM TO BOTH KNEES TRANSDERMAL TWICE DAILY NEEDED NOT-TAKING METFORMIN HCL 500 MG TABLET EXTENDED RELEASE 24 HOUR 2 TABS ORALLY DAILY WITH MEALS NOT-TAKING LISINOPRIL 5 MG TABLET 1 TAB ORALLY DAILY NOT-TAKING SINGULAIR 10 MG TABLET 1 TABLET IN THE EVENING ORALLY ONCE A DAY NOT-TAKING VITAMIN D 1000 UNIT TABLET 1 TABLET ORALLY ONCE A DAY NOT-TAKING AMOXICILLIN-POT CLAVULANATE 875-125 MG TABLET 1 TABLET ORALLY EVERY 12 HRS NOT-TAKING MULTIVITAMINS OTC TABLET 2 TABS BIOFLEX ORALLY DAILY NOT-TAKING ESTRADIOL-NORETHINDRONE ACET 0.5-0.1 MG TABLET 1 TABLET ORALLY ONCE A DAY NOT-TAKING LATUDA 20 MG TABLET 2 TABLETS WITH FOOD ORALLY ONCE A DAY NOT-TAKING ACTIVELLA 0.5-0.1 MG TABLET 1 TABLET ORALLY ONCE A DAY MEDICATION LIST REVIEWED AND RECONCILED WITH THE PATIENT PAST MEDICAL HISTORY HYPOTHYROIDISM, AQUIRED DYSPEPSIA, GERD WITH DYSPHAGIA ALLERGIC RHINITIS, SEASONAL MORBID OBESITY BACK PAIN/ DEG DISC DISEASE - [facility] FIBROMYALGIA - DR PLUMMER OBESITY BIPOLAR - DR HILL SLEEP APNEA - DR HERCULES NONALCOHOLIC HEPATOSTEATOSIS KNEE DETERIATION ALLERGIES VICODIN: ITCHING: ALLERGY LAMICTAL: RASH: ALLERGY GEODON: NUMBNESS/TINGLING: ALLERGY SOMA: DIZZINESS: SIDE EFFECTS PERCOCET: ITCHING: ALLERGY PLAQUENIL: DIARRHEA: ALLERGY LATUDA: VIOENT ANGRY EPISODES: SIDE EFFECTS SURGICAL HISTORY C SECTION X3 BREAST REDUCTION EGD-HIATAL HERNIA, MILD CHRONIC GASTRITIS-DR SEPULVEDA 02/08/11 COLONOSCOPY-HEMORRHOIDS, MILD INFLAMMATION- COCO 02/08/11 CHOLECYSTECTOMY REVIEW OF SYSTEMS CONSTITUTIONAL: ANY CHANGE IN YOUR MEDICAL CONDITION? NO . CHILLS NO . FEVER NO . INFECTION: DO YOU HAVE NEW INFECTIONS? NO . DO YOU HAVE HISTORY OF MRSA? NO . MUSCULOSKELETAL: ANY NEW PATTERNS OF PAIN OR NUMBNESS? YES, PT STATES PAIN HAS INCREASED TO THE POINT OF LIMITING HER ADL'S. PT STATES BILAT KNEES INJECTED 02/27/17 AT [facility];. GASTROENTEROLOGY: ANY NEW CHANGE IN BOWEL CONTROL? NO . GENITOURINARY: ANY NEW CHANGE IN BLADDER CONTROL? NO . IS THERE A CHANCE YOU COULD BE ? NO . HEMATOLOGY/LYMPH: DO YOU TAKE ANY BLOOD THINNERS? (FOR EXAMPLE- COUMADIN, PLAVIX, AGGRENOX, PLATEL, PRADAXA, OR XARELTO) NO . WHEN WAS YOUR LAST DOSE? DATE: TIME: . NEUROLOGY: HAVE YOU FALLEN IN THE PAST 6 MONTHS? YES. 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 PT DENIES MAJOR INJURIES REQUIRING MEDICAL INTERVENTION . ANY NEW EXTREMITY NUMBNESS OR WEAKNESS? NO . CARDIOLOGY: DO YOU HAVE A PACEMAKER OR DEFIBRILLATOR? NO . RESPIRATORY: HAVE YOU BEEN SICK IN THE PAST WEEK? NO . FEVER NO . FLU LIKE SYMPTOMS? NO . COUGH NO . INTEGUMENTARY: DO YOU HAVE ANY RASHES OR OPEN SORES? NO . ALLERGIC/IMMUNO: ARE YOU ALLERGIC TO SHELLFISH OR IV DYE? NO . ANY NEW ALLERGIES? NO . PSYCHIATRIC: DO YOU HAVE THOUGHTS OF HURTING YOURSELF OR SOMEONE ELSE? NO . ARE YOU ABUSED, NEGLECTED, OR IN AN UNSAFE ENVIRONMENT? NO . ENDOCRINOLOGY: ARE YOU DIABETIC? YES, BORDERLINE. PT STATES SHE TOOK HERSELF OFF METFORMIN AND TIZANIDINE BECAUSE OF INFORMATION SHE SAW ON TV. . OTHER: DO YOU NEED ANY PRESCRIPTIONS? NO . IF YES, PLEASE LIST: ____ . ANY NEW PROBLEMS WITH YOUR MEDICATIONS? NO . WHEN DID YOU LAST EAT? ____ . WHEN DID YOU LAST DRINK? ____ . WHAT DID YOU LAST DRINK? ____ . NAME OF PERSON DRIVING YOU HOME? ____ . DO YOU HAVE ANY OTHER QUESTIONS OR CONCERNS NO . REVIEWED BY: PROVIDER: IVONNE ARGUETA . VITAL SIGNS WT 242.0 LBS, HT 60.5 IN, BMI 46.48 INDEX, BP 134/66 MM HG, HR 92 /MIN, RR 18 /MIN, TEMP 97.8 F, OXYGEN SAT % 97%, SAFE IN ENV? (Y/N) Y, NA INITIALS TL 1035, REVIEWED BY: EM. EXAMINATION GENERAL EXAMINATION: LUNGS:LUNG SOUNDS ARE CLEAR. HEART:HEART RATE REGULAR. MUSCULOSKELETAL:*, MUSCLE STRENGTH TESTING 12/03 BLE.PALPATION: POSITIVE FOR PAIN OVER L/S SPINE. POSITIVE FOR PAIN OVER L/S PARASPINALS. MULTIPLE AREAS OF TENDER SPOTS UPPER AND LOWER TORSO INDICATIVE OF FIBROMYALGIA.SPECIFIC POINT TENDERNESS OVER C-SPINE. DIAGNOSTIC:MRI L/S SPINE 02-03-15-REVIEWED. MRI [id number]. 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, LUMBAR REGION - M47.26 MYALGIA - M79.1 CERVICALGIA - M54.2 TREATMENT PROTRUSION OF LUMBAR INTERVERTEBRAL DISC REFILL TYLENOL WITH CODEINE #3 TABLET, 300-30 MG, 1 TABLET NEEDED, ORALLY, Q8H PRN MDD3, 30 DAY(S), 45, REFILLS 0 REFILL LYRICA CAPSULE, 300 MG, 1 CAP(S), ORALLY, BID, 30 DAY(S), 60 CAPSULE, REFILLS 2 PROCEDURE CODES FA211 ESTABILISHED PATIENT [facility] FACILITY CHARGE G8730 PAIN ASSESS POS TOOL F/U PLAN DOC G8427 DOC MEDS VERIFIED W/PT OR RE DISPOSITION & COMMUNICATION FOLLOW UP 2 WEEKS ELECTRONICALLY SIGNED BY KENDALL MOSLEY ON 03/19/2017 AT 06:14 PM EDT DISCLAIMER : THIS IS A VISIT SUMMARY EXTRACTED FROM THE [facility] CHART. IT IS NOT A COPY OF THE [facility] PROGRESS NOTE. MTDD
== END ==
LOC: M PAIN 10:00
PROVIDERS: ATTEND Nurse Practitioner Family
DX: G89.29 Other chronic pain (principal); M51.26 Other intervertebral disc displacement, lumbar region; M47.26 Other spondylosis with radiculopathy, lumbar region; M79.1 Myalgia; M54.2 Cervicalgia; E03.9 Hypothyroidism, unspecified; K21.9 Gastro-esophageal reflux disease without esophagitis; J30.2 Other seasonal allergic rhinitis; E66.01 Morbid (severe) obesity due to excess calories; Z68.42 Body mass index [BMI] 45.0-49.9, adult; F31.9 Bipolar disorder, unspecified; G47.30 Sleep apnea, unspecified; I10 Essential (primary) hypertension; E88.81 Metabolic syndrome and other insulin resistance; E55.9 Vitamin D deficiency, unspecified; D64.89 Other specified anemias; Z88.5 Allergy status to narcotic agent; Z88.8 Allergy status to other drugs, medicaments and biological substances; Z79.899 Other long term (current) drug therapy

== ENCOUNTER → 2017-03-01 | Outpatient (REF) | payer MEDICARE ==
[2017-03-03 00:20] LABS: Lyme Disease IgG/IgM Antibodie <0.91 ISR (0.00-0.90); Lyme Disease IgM Ab Quantitati <0.80 index (0.00-0.79)
== END ==
LOC: M LABDRAW1 12:58
PROVIDERS: ATTEND Nurse Practitioner Family
DX: M15.0 Primary generalized (osteo)arthritis (principal)

== ENCOUNTER → 2017-03-01 | Outpatient (CLI) | payer MEDICARE ==
--- NOTE | 2017-03-01 20:56 | ECGEPIP ---
Stationary ECG Study [facility] Test Date: 2017-03-01 Pat Name: BIENVENIDO RDZ Department: Room: - Gender: F [employer] Manager: MARION : 1965 Requested By: Erik Robins @ [facility] Order Number: [id number] Reading MD: Erik Sidhu Measurements Intervals [place] Rate: 84 P: 37 WA: 149 QRS: 5 QRSD: 96 T: 30 QT: 330 QTc: 392 Interpretive Statements SINUS RHYTHM Electronically Signed On 03-01-2017 20:55:53 EDT by Erik Sidhu
== END ==
LOC: M EKG 11:46
PROVIDERS: ATTEND Orthopaedic Surgery
DX: Z01.818 Encounter for other preprocedural examination (principal); I10 Essential (primary) hypertension; E11.9 Type 2 diabetes mellitus without complications; M15.0 Primary generalized (osteo)arthritis

== ENCOUNTER → 2017-03-01 | Outpatient (REF) | payer MEDICARE ==
[2017-03-01 14:02] LABS: ANION GAP 8 MEQ/L (8-16); BLOOD UREA NITROGEN 9 MG/DL (7-18); CALCIUM LEVEL 8.6 MG/DL (8.5-10.1); CARBON DIOXIDE LEVEL 27 MEQ/L (21-32); CHLORIDE LEVEL 104 MEQ/L (98-107); CREATININE FOR GFR 0.99 MG/DL (0.55-1.02); GLOMERULAR FILTRATION RATE > 60.0 (>51); GLUCOSE, FASTING 115 MG/DL (70-105); POTASSIUM SERUM 3.8 MEQ/L (3.5-5.1); SODIUM LEVEL 139 MEQ/L (136-145)
== END ==
LOC: M LABDRAW1 12:56
PROVIDERS: ATTEND Physical Medicine & Rehabilitation
DX: Z01.818 Encounter for other preprocedural examination (principal); I10 Essential (primary) hypertension; E11.9 Type 2 diabetes mellitus without complications

== ENCOUNTER → 2017-03-13 | Outpatient (CLI) | payer MEDICARE ==
--- NOTE | 2017-03-15 00:04 | ECWPNPC ---
PATIENT NAME: BIENVENIDO RDZ : 1965 GENDER: FEMALE VISIT DATE: 03/13/2017 DISCHARGE DATE: 03/13/17 1230 VISIT LOCKED DATE TIME: PHYSICIAN: IVONNE GORE RESOURCE: IVONNE GORE REASON FOR APPOINTMENT 1. BACK HISTORY OF PRESENT ILLNESS FALL RISK SCREENING: HERE FOR F/U OF GENERALIZED BACK AND LEG PAIN.CONTINUES TO RATE PAIN 10/10.THIS IS DESPITE LYRICA 300MG BID,CYMBALTA AND TYLENO #3.PAIN IS BAD IN KNEES.USING WHEELED WALKER.PLANS ON GETTING MRI'S ORDERED WITH APPROVAL. SCREENING :NO FALLS IN THE PAST YEAR PAIN SCREENING: PATIENT HAS A COMPLAINT OF ACUTE OR CHRONIC PAIN :YES CURRENT MEDICATIONS TAKING MAXALT 10 MG TABLET 1 TAB ELIAN ORALLY NEEDED TAKING CYMBALTA 60 MG CAPSULE DELAYED RELEASE PARTICLES [address] PLUMMER ORALLY TWICE DAILY TAKING NEBULIZER/TUBING/MOUTHPIECE DX: 466 KIT DIRECTED FOR INHALATION TX 4 TIMES DAILY NEEDED TAKING IPRATROPIUM-ALBUTEROL 0.5-2.5 (3) MG/3ML SOLUTION 3 ML INHALATION VIA NEBULIZER FOUR TIMES A DAY TAKING TYLENOL 8 HOUR ARTHRITIS PAIN 650 MG TABLET EXTENDED RELEASE 2 TABLETS NEEDED ORALLY DAILY TAKING DIVALPROEX SODIUM ER 250 MG TABLET EXTENDED RELEASE 24 HOUR TAKE ONE TABLET BY MOUTH EVERY EVENING ORAL TAKING OSTEO BI-FLEX TRIPLE STRENGTH - TABLET 2 TAB ORALLY DAILY TAKING VENTOLIN HFA 108 (90 BASE) MCG/ACT AEROSOL SOLUTION 2 PUFFS INHALATION EVERY 4 HOURS NEEDED TAKING ZYRTEC ALLERGY 10 MG TABLET 1 TABLET ORALLY ONCE A DAY TAKING FLUTICASONE PROPIONATE 50 MCG/ACT SUSPENSION 1 SPRAY IN EACH NOSTRIL NASALLY ONCE A DAY TAKING OMEPRAZOLE 40 MG CAPSULE DELAYED RELEASE 1 CAPSULE BEFORE MEAL ORALLY ONCE A DAY TAKING DRISDOL 62866 UNIT CAPSULE 1 CAPSULE WITH MEAL ORALLY ONCE A WEEK TAKING LEVOTHYROXINE SODIUM 75 MCG TABLET 1 TABLET EVERY MORNING ON AN EMPTY STOMACH ORALLY ONCE A DAY TAKING VITAMIN D (ERGOCALCIFEROL) 31223 UNIT CAPSULE TAKE ONE CAPSULE BY MOUTH ONCE A WEEK WITH A MEAL TAKING COMBIPATCH 0.05-0.25 MG/DAY PATCH TWICE WEEKLY 1 PATCH TO SKIN TRANSDERMAL TWO TIMES A WEEK TAKING TYLENOL WITH CODEINE #3 300-30 MG TABLET 1 TABLET NEEDED ORALLY Q8H PRN MDD3 TAKING LYRICA 300 MG CAPSULE 1 CAP(S) ORALLY BID NOT-TAKING TIZANIDINE HCL 2 MG TABLET 2 TABS NEEDED ORALLY AT BEDTIME NOT-TAKING VOLTAREN 1 % GEL 4GM TO BOTH KNEES TRANSDERMAL TWICE DAILY NEEDED NOT-TAKING METFORMIN HCL 500 MG TABLET EXTENDED RELEASE 24 HOUR 2 TABS ORALLY DAILY WITH MEALS NOT-TAKING SINGULAIR 10 MG TABLET 1 TABLET IN THE EVENING ORALLY ONCE A DAY NOT-TAKING VITAMIN D 1000 UNIT TABLET 1 TABLET ORALLY ONCE A DAY NOT-TAKING AMOXICILLIN-POT CLAVULANATE 875-125 MG TABLET 1 TABLET ORALLY EVERY 12 HRS NOT-TAKING MULTIVITAMINS OTC TABLET 2 TABS BIOFLEX ORALLY DAILY NOT-TAKING ESTRADIOL-NORETHINDRONE ACET 0.5-0.1 MG TABLET 1 TABLET ORALLY ONCE A DAY NOT-TAKING LATUDA 20 MG TABLET 2 TABLETS WITH FOOD ORALLY ONCE A DAY NOT-TAKING ACTIVELLA 0.5-0.1 MG TABLET 1 TABLET ORALLY ONCE A DAY MEDICATION LIST REVIEWED AND RECONCILED WITH THE PATIENT PAST MEDICAL HISTORY HYPOTHYROIDISM, AQUIRED DYSPEPSIA, GERD WITH DYSPHAGIA ALLERGIC RHINITIS, SEASONAL MORBID OBESITY BACK PAIN/ DEG DISC DISEASE - [facility] PAIN CL[facility] FIBROMYALGIA - DR PLMUMER OBESITY BIPOLAR - DR HILL SLEEP APNEA - DR HERCULES NONALCOHOLIC HEPATOSTEATOSIS KNEE DETERIATION ALLERGIES VICODIN: ITCHING: ALLERGY LAMICTAL: RASH: ALLERGY GEODON: NUMBNESS/TINGLING: ALLERGY SOMA: DIZZINESS: SIDE EFFECTS PERCOCET: ITCHING: ALLERGY PLAQUENIL: DIARRHEA: ALLERGY LATUDA: VIOENT ANGRY EPISODES: SIDE EFFECTS SURGICAL HISTORY C SECTION X3 BREAST REDUCTION EGD-HIATAL HERNIA, MILD CHRONIC GASTRITIS-DR SEPULVEDA 02/08/11 COLONOSCOPY-HEMORRHOIDS, MILD INFLAMMATION- COCO 02/08/11 CHOLECYSTECTOMY FAMILY HISTORY FATHER: UNKNOWN MOTHER: UNKNOWN 1 BROTHER(S) . BROTHER HAS HX OF NECK/BACK PAIN. SOCIAL HISTORY GENERAL: TOBACCO USE ARE YOU A:FORMER SMOKER HOW LONG HAS IT BEEN SINCE YOU LAST SMOKED?> 10 YEARS CAFFEINE CAFFEINE USE?YES HOW OFTEN AND HOW MUCH? 3-4 CUPS LEARNING BARRIERS / SPECIAL NEEDS BARRIERS TO LEARNING?NO VISION IMPAIRED?YES : GLASSES READINESS TO LEARN?YES LEARNING PREFERENCES?NO PAIN CLINIC PFS, CLERGY, PUBLIC HEALTH REFERRALS PFS REFERRAL NEEDED?NO CLERGY REFERRAL NEEDED?NO PUBLIC HEALTH REFERRAL NEEDED?NO WAS THE PROVIDER NOTIFIED OF ANY PERTINENT INFO?NO HAS THE PATIENT BEEN EDUCATED REGARDING HIS/HER PLAN OF CARE?YES HAS THE PATIENT BEEN EDUCATED REGARDING PAIN, THE RISK FOR PAIN, THE IMPORTANCE OF EFFECTIVE PAIN MANAGEMENT, AND THE PAIN ASSESSMENT PROCESS?YES REVIEWED BY: MANUEL. PATIENT: ____. REVIEW OF SYSTEMS CONSTITUTIONAL: ANY CHANGE IN YOUR MEDICAL CONDITION? NO . CHILLS NO . FEVER NO . INFECTION: DO YOU HAVE NEW INFECTIONS? NO . DO YOU HAVE HISTORY OF MRSA? NO . MUSCULOSKELETAL: ANY NEW PATTERNS OF PAIN OR NUMBNESS? YES, INCREASED PAIN, UNABLE TO BEND AT WAIST . SYTEMIC LUPUS NO . GASTROENTEROLOGY: ANY NEW CHANGE IN BOWEL CONTROL? NO . BARRETTS ESOPHAGUS NO . CIRRHOSIS NO . HEPATITIS NO . LIVER FAILURE NO . ACID REFLUX NO . UNEXPLAINED WEIGHT LOSS NO . GENITOURINARY: ANY NEW CHANGE IN BLADDER CONTROL? NO . IS THERE A CHANCE YOU COULD BE ? NO . HEMATOLOGY/LYMPH: DO YOU TAKE ANY BLOOD THINNERS? (FOR EXAMPLE- COUMADIN, PLAVIX, AGGRENOX, PLATEL, PRADAXA, OR XARELTO) NO . WHEN WAS YOUR LAST DOSE? DATE: TIME: . LOW PLATELET COUNT NO . SICKLE CELL DISEASE NO . VON WILLIEBRANDS NO . FACTOR V LEIDEN NO . THALLASEMIA NO . ANEMIA NO . EASY BRUISING NO . NEUROLOGY: HAVE YOU FALLEN IN THE PAST 6 MONTHS? YES, PT STATES THAT SHE WAS AT HOME, LOST BALANCE, NO REPORT TO ED, BRUSING. . ANY NEW EXTREMITY NUMBNESS OR WEAKNESS? NO . HEAD INJURY NO . DEMENTIA NO . CEREBRAL PALSY NO . MULTIPLE SCLEROSIS NO . DIZZINESS NO . HEADACHE NO . STROKES NO . VERTIGO NO . CARDIOLOGY: DO YOU HAVE A PACEMAKER OR DEFIBRILLATOR? NO . ANGINA NO . HEART ATTACK NO . HEART SURGERY NO . CONGESTIVE HEART FAILURE/FLUID OVERLOAD NO . CHEST PAIN NO . HIGH BLOOD PRESSURE NO . IRREGULAR HEART BEAT NO . RESPIRATORY: HAVE YOU BEEN SICK IN THE PAST WEEK? NO . FEVER NO . FLU LIKE SYMPTOMS? NO . CPAP NO . BYPAP NO . ASTHMA NO . EMPHYSEMA NO . CHRONIC LUNG DISEASES NO . SHORTNESS OF BREATH ON EXERTION NO . COUGH NO . SNORING NO . INTEGUMENTARY: DO YOU HAVE ANY RASHES OR OPEN SORES? NO . ALLERGIC/IMMUNO: ARE YOU ALLERGIC TO SHELLFISH OR IV DYE? NO . ANY NEW ALLERGIES? NO . PSYCHIATRIC: DO YOU HAVE THOUGHTS OF HURTING YOURSELF OR SOMEONE ELSE? NO . ARE YOU ABUSED, NEGLECTED, OR IN AN UNSAFE ENVIRONMENT? NO . ENDOCRINOLOGY: ARE YOU DIABETIC? YES . THYROID DISORDER NO . OTHER: DO YOU NEED ANY PRESCRIPTIONS? NO . IF YES, PLEASE LIST: ____ . ANY NEW PROBLEMS WITH YOUR MEDICATIONS? NO . WHEN DID YOU LAST EAT? ____ . WHEN DID YOU LAST DRINK? ____ . WHAT DID YOU LAST DRINK? ____ . NAME OF PERSON DRIVING YOU HOME? ____ . DO YOU HAVE ANY OTHER QUESTIONS OR CONCERNS NO . REVIEWED BY: PROVIDER: IVONNE ARGUETA . VITAL SIGNS WT 247.4 LBS, HT 60.5 IN, BMI 47.52 INDEX, BP 160/82 MM HG, HR 85 /MIN, RR 16 /MIN, TEMP 97.6 F, OXYGEN SAT % 96%, SAFE IN ENV? (Y/N) Y, NA INITIALS TL 1128, REVIEWED BY: MANUEL. EXAMINATION GENERAL EXAMINATION: LUNGS:LUNG SOUNDS ARE CLEAR. HEART:HEART RATE REGULAR. MUSCULOSKELETAL:*, MUSCLE STRENGTH TESTING 3/5 BLE.PALPATION: POSITIVE FOR PAIN OVER L/S SPINE. POSITIVE FOR PAIN OVER L/S PARASPINALS. MULTIPLE AREAS OF TENDER SPOTS UPPER AND LOWER TORSO INDICATIVE OF FIBROMYALGIA.SPECIFIC POINT TENDERNESS OVER C-SPINE. DIAGNOSTIC:MRI L/S SPINE 02-03-15-REVIEWED. MRI [id number]. 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, LUMBAR REGION - M47.26 MYALGIA - M79.1 CERVICALGIA - M54.2 TREATMENT PROTRUSION OF LUMBAR INTERVERTEBRAL DISC CONTINUE CYMBALTA CAPSULE DELAYED RELEASE PARTICLES, 60 MG, [address] PLUMMER, ORALLY, TWICE DAILY CONTINUE TYLENOL WITH CODEINE #3 TABLET, 300-30 MG, 1 TABLET NEEDED, ORALLY, Q8H PRN MDD3 CONTINUE LYRICA CAPSULE, 300 MG, 1 CAP(S), ORALLY, BID RE[facility]ERRAL TO[facility] REASON:GENERALIZED ARTHROPATHY /MODERATE /SEVERE LUMBAR SPONDYLOSIS PROCEDURE CODES FA211 ESTABILISHED PATIENT [facility] FACILITY CHARGE [id number] PAIN ASSESS POS TOOL F/U PLAN DOC G8427 DOC MEDS VERIFIED W/PT OR RE DISPOSITION & COMMUNICATION FOLLOW UP 2 WEEKS-REFER TO (REASON: MRI C-SPINE/L/S SPINE) ELECTRONICALLY SIGNED BY KENDALL MOSLEY ON 03/14/2017 AT 03:49 PM EDT DISCLAIMER : THIS IS A VISIT SUMMARY EXTRACTED FROM THE [employer] CHART. IT IS NOT A COPY OF THE [employer] PROGRESS NOTE. DANIEL
== END ==
LOC: M PAIN 11:20
PROVIDERS: ATTEND Nurse Practitioner Family
DX: M51.26 Other intervertebral disc displacement, lumbar region (principal); M47.26 Other spondylosis with radiculopathy, lumbar region; M79.1 Myalgia; M54.2 Cervicalgia; R31.9 Hematuria, unspecified; Z79.899 Other long term (current) drug therapy
CPT/HCPCS: 80053; 82306; 83036; 84439; 84443; G0463

== ENCOUNTER → 2017-03-13 | Outpatient (REF) | payer MEDICARE ==
[2017-03-13 14:00] LABS: ALBUMIN/GLOBULIN RATIO 0.79 (1.00-1.93); ALKALINE PHOSPHATASE 87 U/L (45-117); ALT/SGPT 19 U/L (12-78); ANION GAP 8 MEQ/L (8-16); AST/SGOT 13 U/L (15-37); BILIRUBIN,TOTAL 0.1 MG/DL (0.2-1.0); BLOOD UREA NITROGEN 11 MG/DL (7-18); CARBON DIOXIDE LEVEL 28 MEQ/L (21-32); CHLORIDE LEVEL 101 MEQ/L (98-107); CREATININE FOR GFR 1.03 MG/DL (0.55-1.02); FREE T4 1.27 NG/DL (0.76-1.46); GLOMERULAR FILTRATION RATE > 60.0 (>51); GLUCOSE, FASTING 120 MG/DL (70-105); POTASSIUM SERUM 3.8 MEQ/L (3.5-5.1); SODIUM LEVEL 137 MEQ/L (136-145); TOTAL PROTEIN 6.8 GM/DL (6.4-8.2)
== END ==
LOC: M SFHCPLAZ 10:29
PROVIDERS: ATTEND Nurse Practitioner Family
DX: I10 Essential (primary) hypertension (principal); E03.9 Hypothyroidism, unspecified; E88.81 Metabolic syndrome and other insulin resistance; E55.9 Vitamin D deficiency, unspecified

== ENCOUNTER → 2017-06-07 | Outpatient (CLI) | payer MEDICARE ==
[~2017-06-07] MED LIST changes: +IBUP-1022 PO; -IBUP600T26 PO
--- NOTE | 2017-06-07 12:44 | REP ---
Clinical: Pain. Technique: AP, lateral, bilateral oblique views of the left wrist. Findings: Osseous structures, joint spaces, and surrounding soft tissues are normal for age. No significant, overt osteoarthritic degenerative changes are appreciated. No evidence for acute or healed injury. Impression: Age-appropriate left wrist radiographs. Signed by Regino Lovell MD 06/07/2017 12:34 P
--- NOTE | 2017-06-07 12:47 | REP ---
Clinical: Pain Technique: AP, lateral, bilateral oblique views left hand. Findings: Osseous structures, joint spaces, and surrounding soft tissues are normal for age. No significant, overt osteoarthritic degenerative changes are appreciated. No evidence for acute or healed injury. Impression: Age-related changes. Signed by Regino Lovell MD 06/07/2017 12:37 P
--- NOTE | 2017-06-07 12:49 | REP ---
Clinical: Pain. Technique: Internal rotation, external rotation, and Y view of the left shoulder. Comparison: 07/03/2012. Findings: Mild, progressive degenerative changes include subtle cortical irregularity and spurring at the acromioclavicular joint as well as subtle fraying and cortical irregularity primarily involving the inferior margin of the glenoid rim. No acute fracture dislocation. No periarticular calcifications. Subacromial space is normal. Impression: Mild progressive arthritic changes. Signed by Regino Lovell MD 06/07/2017 12:40 P
[2017-06-07 13:13] LABS: BASO % 0.4 % (0.0-1.0); EOS # 0.1 K/mm3 (0.0-0.50); EOS % 0.8 % (0.0-3.0); LARGE UNSTAINED CELL # 0.1 K/mm3 (0.0-0.4); LARGE UNSTAINED CELL % 1.4 % (0.0-4.0); LYMPH # 1.9 K/mm3 (1.5-4.5); LYMPH % 21.3 % (24.0-44.0); MEAN CORPUSCULAR HEMOGLOBIN 25.8 pg (27.0-33.0); MEAN CORPUSCULAR HGB CONC 31.4 g/dl (32.0-36.5); MEAN CORPUSCULAR VOLUME 82.1 fl (80.0-96.0); MONO # 0.5 K/mm3 (0.0-0.8); MONO % 5.2 % (0.0-5.0); NEUTROPHILS # 6.2 K/mm3 (1.8-7.7); NEUTROPHILS % 70.9 % (36.0-66.0); PLATELET COUNT, AUTOMATED 444 k/mm3 (150-450); RED CELL DISTRIBUTION WIDTH 16.6 % (11.5-14.5); WHITE BLOOD COUNT 8.7 K/mm3 (4.0-10.0)
[2017-06-07 13:28] LABS: ALBUMIN 3.2 GM/DL (3.2-5.2); ALBUMIN/GLOBULIN RATIO 0.76 (1.00-1.93); ALKALINE PHOSPHATASE 104 U/L (45-117); ALT/SGPT 24 U/L (12-78); ANION GAP 8 MEQ/L (8-16); AST/SGOT 11 U/L (15-37); BILIRUBIN,TOTAL 0.2 MG/DL (0.2-1.0); BLOOD UREA NITROGEN 10 MG/DL (7-18); CARBON DIOXIDE LEVEL 29 MEQ/L (21-32); CHLORIDE LEVEL 104 MEQ/L (98-107); GLOMERULAR FILTRATION RATE > 60.0 (>51); GLUCOSE, FASTING 120 MG/DL (70-105); PERCENT SATURATION 6.7 % (13.2-45.0); SODIUM LEVEL 141 MEQ/L (136-145); TOTAL IRON BINDING CAPACITY 416 UG/DL (250-450); TOTAL PROTEIN 7.4 GM/DL (6.4-8.2); URIC ACID 5.4 MG/DL (2.6-6.0)
[2017-06-07 15:09] LABS: ERYTHROCYTE SEDIMENTATION RATE 65 mm/hr (0-30)
[2017-06-07 16:36] LABS: SYNOVIAL FLUID COLOR PALE YELLOW (YELLOW)
[2017-06-07 19:51] LABS: CRYSTALS, BODY FLUID NONE SEEN (NONE SEEN); RBC ADVIA BF 0; RBC CALC. BF < 10000 (< 10mm3 cells/uL); WBC ADVIA BF 0.13; WBC CALC. BF 130 cells/uL (0-20)
[2017-06-09 08:06] LABS: Lyme Disease IgG/IgM Antibodie <0.91 ISR (0.00-0.90); Lyme Disease IgM Ab Quantitati <0.80 index (0.00-0.79)
[2017-06-09 15:08] LABS: BF DIFF IF INDICATED? YES (NO)
[2017-06-09 15:16] LABS: CC BF DIFF EXAM CYTOCENTRIFUGE
== END ==
LOC: M LAB 11:29
PROVIDERS: ATTEND Internal Medicine Rheumatology
DX: M35.9 Systemic involvement of connective tissue, unspecified (principal); D64.9 Anemia, unspecified

== ENCOUNTER → 2017-06-11 | Outpatient (REF) | payer MEDICARE ==
[2017-06-11 15:04] LABS: ANION GAP 10 MEQ/L (8-16); BLOOD UREA NITROGEN 14 MG/DL (7-18); CALCIUM LEVEL 9.3 MG/DL (8.5-10.1); CARBON DIOXIDE LEVEL 27 MEQ/L (21-32); CHLORIDE LEVEL 104 MEQ/L (98-107); CREATININE FOR GFR 0.96 MG/DL (0.55-1.02); FREE T4 0.77 NG/DL (0.76-1.46); GLOMERULAR FILTRATION RATE > 60.0 (>51); GLUCOSE, FASTING 121 MG/DL (70-105); POTASSIUM SERUM 4.1 MEQ/L (3.5-5.1); SODIUM LEVEL 141 MEQ/L (136-145)
== END ==
LOC: M SFHCPLAZ 09:04
PROVIDERS: ATTEND Nurse Practitioner Family
DX: E03.9 Hypothyroidism, unspecified (principal); E88.81 Metabolic syndrome and other insulin resistance; I10 Essential (primary) hypertension; E55.9 Vitamin D deficiency, unspecified; R73.01 Impaired fasting glucose

== ENCOUNTER → 2017-06-13 | Outpatient (CLI) | payer MEDICARE ==
--- NOTE | 2017-06-13 16:28 | REP ---
Clinical: Right groin pain. Comparison: 08/26/2014. Findings: Lung bases demonstrate mild interstitial changes. Hepatomegaly and fatty infiltration to the liver is appreciated. Spleen demonstrates parenchymal calcifications suggesting prior granulomas disease. Pancreas, bilateral adrenal glands and kidneys are normal. The patient is status post cholecystectomy. The enteric system is without obstruction or acute inflammatory process. Pelvis demonstrates normal bladder and age-appropriate uterus/adnexa. No pelvic fluid or ascites. No free air. No adenopathy. 1 cm fat containing periumbilical hernia is identified. The bilateral inguinal canals are normal and no inguinal hernia is identified. Surrounding musculoskeletal structures demonstrate age-related changes without focal osseous abnormality. Impression: 1. Hepatomegaly and fatty infiltration to the liver. 2. Small, 1 cm fat containing periumbilical hernia. 3. No further acute abdominopelvic pathology appreciated Signed by Regino Lovell MD 06/13/2017 04:20 P
== END ==
LOC: M RAD 15:32
PROVIDERS: ATTEND Nurse Practitioner Adult Health
DX: R10.9 Unspecified abdominal pain (principal)

== ENCOUNTER → 2017-06-19 | Outpatient (CLI) | payer MEDICARE ==
--- NOTE | 2017-07-05 01:12 | ECWPNPC ---
PATIENT NAME: BIENVENIDO RDZ : 1965 GENDER: FEMALE VISIT DATE: 06/19/2017 DISCHARGE DATE: 06/19/17 1501 VISIT LOCKED DATE TIME: PHYSICIAN: IVONNE GORE RESOURCE: IVONNE GORE HISTORY OF PRESENT ILLNESS HISTORY OF PRESENT ILLNESS: PAIN THE PATIENT DESCRIBES THE PAIN... FALL RISK SCREENING: HERE FOR F/U OF GENERALIZED BACK AND LEG PAIN.CONTINUES TO RATE PAIN 10/10.THIS IS DESPITE LYRICA 200MG BID,CYMBALTA 60MG QD AND TYLENO #3 APROXIMATLEY ONE DAILY.PAIN IS BAD IN KNEES.USING WHEEL CHAIR FOR ANY DISTANCE.CURRENTLY BEING EVALUATED BY DR. VILLASENOR,RHEUMATOLOGY.HAS F/U FOR LABWORK AND XRAYS. SCREENING :NO FALLS IN THE PAST YEAR :NO FALLS IN THE PAST YEAR CURRENT MEDICATIONS TAKING MAXALT 10 MG TABLET [address] PLUMMER ORALLY NEEDED TAKING NEBULIZER/TUBING/MOUTHPIECE DX: 466 KIT DIRECTED FOR INHALATION TX 4 TIMES DAILY NEEDED TAKING IPRATROPIUM-ALBUTEROL 0.5-2.5 (3) MG/3ML SOLUTION 3 ML INHALATION VIA NEBULIZER FOUR TIMES A DAY TAKING TYLENOL 8 HOUR ARTHRITIS PAIN 650 MG TABLET EXTENDED RELEASE 2 TABLETS NEEDED ORALLY DAILY TAKING DIVALPROEX SODIUM ER 250 MG TABLET EXTENDED RELEASE 24 HOUR TAKE ONE TABLET BY MOUTH EVERY EVENING ORAL TAKING OSTEO BI-FLEX TRIPLE STRENGTH - TABLET 2 TAB ORALLY DAILY TAKING CYMBALTA 60 MG CAPSULE DELAYED RELEASE PARTICLES [address] PLUMMER ORALLY TWICE DAILY TAKING DIVALPROEX SODIUM 125 MG TABLET DELAYED RELEASE (PRIOR AUTH: RX REF#:[id number]) ORAL TAKING TIZANIDINE HCL 2 MG TABLET 3 TABS ORALLY DAILY TAKING COMBIPATCH 0.05-0.25 MG/DAY PATCH TWICE WEEKLY 1 PATCH TO SKIN TRANSDERMAL TWO TIMES A WEEK TAKING BD ULTRA-FINE PEN NEEDLES 32G 4MM DIRECTED SUBCUTANEOUSLY DAILY WITH VICTOZA TAKING LYRICA 200 MG CAPSULE 1 CAP(S) ORALLY BID TAKING TYLENOL WITH CODEINE #3 300-30 MG TABLET 1 TABLET NEEDED ORALLY Q8H PRN MDD3 TAKING VENTOLIN HFA 108 (90 BASE) MCG/ACT AEROSOL SOLUTION 2 PUFFS INHALATION EVERY 4 HOURS NEEDED TAKING LEVOTHYROXINE SODIUM 75 MCG TABLET 1 TABLET ON AN EMPTY STOMACH IN THE MORNING ORALLY ONCE A DAY TAKING SINGULAIR 10 MG TABLET 1 TABLET IN THE EVENING ORALLY ONCE A DAY TAKING ZYRTEC ALLERGY 10 MG TABLET 1 TABLET ORALLY ONCE A DAY TAKING FLUTICASONE PROPIONATE 50 MCG/ACT SUSPENSION 1 SPRAY IN EACH NOSTRIL NASALLY ONCE A DAY TAKING OMEPRAZOLE 40 MG CAPSULE DELAYED RELEASE 1 CAPSULE BEFORE MEAL ORALLY ONCE A DAY NEEDED TAKING DRISDOL 90737 UNIT CAPSULE 1 CAPSULE WITH MEAL ORALLY MONTHLY TAKING METFORMIN HCL 500 MG TABLET EXTENDED RELEASE 24 HOUR 2 TABS ORALLY DAILY WITH MEALS NOT-TAKING ZYRTEC ALLERGY 10 MG TABLET 1 TABLET ORALLY ONCE A DAY NOT-TAKING VITAMIN D 1000 UNIT TABLET 1 TABLET ORALLY ONCE A DAY NOT-TAKING VICTOZA 18 MG/3ML SOLUTION PEN-INJECTOR 0.6MG X 1 WEEK, THEN 1.2MG SUBCUTANEOUS ONCE A DAY MEDICATION LIST REVIEWED AND RECONCILED WITH THE PATIENT PAST MEDICAL HISTORY HYPOTHYROIDISM, AQUIRED DYSPEPSIA, GERD WITH DYSPHAGIA ALLERGIC RHINITIS, SEASONAL MORBID OBESITY BACK PAIN/ DEG DISC DISEASE - [facility] PAIN [facility] FIBROMYALGIA - DR PLUMMER BIPOLAR - DR HILL SLEEP APNEA - DR HERCULES NONALCOHOLIC HEPATOSTEATOSIS KNEE DETERIATION 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 VITAMIN D DEFICIENCY ANEMIA DUE TO OTHER CAUSE, OTHER CAUSE OF ANEMIA, NOT CLASSIFIED PRIMARY OSTEOARTHRITIS OF LEFT KNEE ESSENTIAL HYPERTENSION ALLERGIES VICODIN: ITCHING: ALLERGY LAMICTAL: RASH: ALLERGY GEODON: NUMBNESS/TINGLING: ALLERGY SOMA: DIZZINESS: SIDE EFFECTS PERCOCET: ITCHING: ALLERGY PLAQUENIL: DIARRHEA: ALLERGY LATUDA: VIOENT ANGRY EPISODES: SIDE EFFECTS LISINOPRIL: COUGH: SIDE EFFECTS VICTOZA: HEADACHES: SIDE EFFECTS SOCIAL HISTORY GENERAL: TOBACCO USE ARE YOU A:FORMER SMOKER HOW LONG HAS IT BEEN SINCE YOU LAST SMOKED?> 10 YEARS BMI CARE GOAL FOLLOW-UP ABOVE NORMAL BMI FOLLOW-UPDIETARY NEEDS EDUCATION, WEIGHT MONITORING ALCOHOL SCREENING DID YOU HAVE A DRINK CONTAINING ALCOHOL IN THE PAST YEAR?NO POINTS0 INTERPRETATIONNEGATIVE RECREATIONAL DRUG USE DRUG USE?NO CAFFEINE CAFFEINE USE?YES HOW OFTEN AND HOW MUCH? 3-4 CUPS SEXUAL HX HAD SEX IN THE LAST 12 MONTHS (VAGINAL, ORAL, OR ANAL)?YES WITHMEN ONLY HAVE YOU EVER HAD AN STD?NO HIV / HEP-C SCREENING HIV TEST OFFERED TO PATIENT:YES DATE OFFERED:11/22/2016 PREVIOUSLY OFFERED TEST ACCEPTED:NO REASON:OTHER (DOCUMENT IN NOTE) HEP-C TEST OFFERED TO PATIENT:NO N/A OCCUPATION: UNEMPLOYED. DIET: REGULAR. EXERCISE: NONE. MARITAL STATUS: . PETS: 2 DOGS,2 CATS . CHRISTIAN CHRISTIAN NO RELIGION BELIEFS THAT WOULD IMPACT HEALTH CARE. LANGUAGE LANGUAGES SPOKEN:BHUTANESE EDUCATION LEVEL OF EDUCATION:FINISHED COLLEGE LEARNING BARRIERS / SPECIAL NEEDS BARRIERS TO LEARNING?NO HEARING IMPAIRED?NO VISION IMPAIRED?YES : GLASSES COGNITIVELY IMPAIRED?NO READINESS TO LEARN?YES LEARNING PREFERENCES?NO LEARNING CAPABILITIES PRESENT?YES EMOTIONAL BARRIERS?NO SPECIAL DEVICES?YES :CANE, WALKER, WHEELCHAIR PREDATORY ANIMAL TRAPPER NEEDED?NO PAIN CLINIC PFS, CLERGY, PUBLIC HEALTH REFERRALS PFS REFERRAL NEEDED?NO CLERGY REFERRAL NEEDED?NO PUBLIC HEALTH REFERRAL NEEDED?NO WAS THE PROVIDER NOTIFIED OF ANY PERTINENT INFO?NO HAS THE PATIENT BEEN EDUCATED REGARDING HIS/HER PLAN OF CARE?YES HAS THE PATIENT BEEN EDUCATED REGARDING PAIN, THE RISK FOR PAIN, THE IMPORTANCE OF EFFECTIVE PAIN MANAGEMENT, AND THE PAIN ASSESSMENT PROCESS?YES REVIEWED BY: MANUEL. PATIENT: ____. REVIEW OF SYSTEMS REVIEWED BY: PROVIDER: IVONNE ARGUETA . CONSTITUTIONAL: ANY CHANGE IN YOUR MEDICAL CONDITION? NO . CHILLS NO . FEVER NO . INFECTION: DO YOU HAVE NEW INFECTIONS? NO . DO YOU HAVE HISTORY OF MRSA? NO . MUSCULOSKELETAL: ANY NEW PATTERNS OF PAIN OR NUMBNESS? NO . GASTROENTEROLOGY: ANY NEW CHANGE IN BOWEL CONTROL? NO . GENITOURINARY: ANY NEW CHANGE IN BLADDER CONTROL? NO . IS THERE A CHANCE YOU COULD BE ? NO . HEMATOLOGY/LYMPH: DO YOU TAKE ANY BLOOD THINNERS? (FOR EXAMPLE- COUMADIN, PLAVIX, AGGRENOX, PLATEL, PRADAXA, OR XARELTO) NO . WHEN WAS YOUR LAST DOSE? DATE: TIME: . NEUROLOGY: HAVE YOU FALLEN IN THE PAST 6 MONTHS? NO . ANY NEW EXTREMITY NUMBNESS OR WEAKNESS? NO . CARDIOLOGY: DO YOU HAVE A PACEMAKER OR DEFIBRILLATOR? NO . RESPIRATORY: HAVE YOU BEEN SICK IN THE PAST WEEK? NO . FEVER NO . FLU LIKE SYMPTOMS? NO . COUGH NO . INTEGUMENTARY: DO YOU HAVE ANY RASHES OR OPEN SORES? NO . ALLERGIC/IMMUNO: ARE YOU ALLERGIC TO SHELLFISH OR IV DYE? NO . ANY NEW ALLERGIES? NO . PSYCHIATRIC: DO YOU HAVE THOUGHTS OF HURTING YOURSELF OR SOMEONE ELSE? NO . ARE YOU ABUSED, NEGLECTED, OR IN AN UNSAFE ENVIRONMENT? NO . ENDOCRINOLOGY: ARE YOU DIABETIC? YES . OTHER: DO YOU NEED ANY PRESCRIPTIONS? NO . IF YES, PLEASE LIST: ____ . ANY NEW PROBLEMS WITH YOUR MEDICATIONS? NO . WHEN DID YOU LAST EAT? ____ . WHEN DID YOU LAST DRINK? ____ . WHAT DID YOU LAST DRINK? ____ . NAME OF PERSON DRIVING YOU HOME? ____ . DO YOU HAVE ANY OTHER QUESTIONS OR CONCERNS NO . VITAL SIGNS WT 244 LBS, HT 60.5 IN, BMI 46.86 INDEX, BP 122/59 MM HG, HR 83 /MIN, RR 20 /MIN, TEMP 97.9 F, OXYGEN SAT % 96%, NA INITIALS AW 1424, REVIEWED BY: CS. EXAMINATION GENERAL EXAMINATION: LUNGS:LUNG SOUNDS ARE CLEAR. HEART:HEART RATE REGULAR. MUSCULOSKELETAL:*, MUSCLE STRENGTH TESTING 12/03 BLE.PALPATION: POSITIVE FOR PAIN OVER L/S SPINE. POSITIVE FOR PAIN OVER L/S PARASPINALS. MULTIPLE AREAS OF TENDER SPOTS UPPER AND LOWER TORSO INDICATIVE OF FIBROMYALGIA.SPECIFIC POINT TENDERNESS OVER C-SPINE. DIAGNOSTIC:MRI L/S SPINE 02-03-15-REVIEWED. MRI [id number]. ASSESSMENTS PROTRUSION OF LUMBAR INTERVERTEBRAL DISC - M51.26 (PRIMARY) MYALGIA - M79.1 TREATMENT PROTRUSION OF LUMBAR INTERVERTEBRAL DISC REFILL LYRICA CAPSULE, 200 MG, 1 CAP(S), ORALLY, BID, 30 DAY(S), 60 CAPSULE, REFILLS 2 REFILL TYLENOL WITH CODEINE #3 TABLET, 300-30 MG, 1 TABLET NEEDED, ORALLY, Q8H PRN MDD3, 30 DAY(S), 45, REFILLS 0 NOTES: ISTOP REGISTRY REVIEWED [id number] AND DEMNOSTRATES COMPLLIANCE. BRINGS IN MEDICATIONS WHICH IS APPROPRIATE FOR WHAT WAS DISPENSED. RECENT URINE TOXICOLOGY REVIEWED. NO UNAUTHORIZED MEDICATIONS. NO ILLICIT SUBSTANCES AND PRESCRIBED MEDICATIONS WERE PRESENT. , RISKS AND BENEFITS OF NARCOTIC/OPIOD MEDICATIONS WERE REVIEWED WITH PATIENT - THIS INCLUDES BUT IS NOT LIMITED TO RISK OF DEPENDANCE/DEVELOPMENT OF ADDICTION, MOOD DISTURBANCE AND DEPRESSION, OSTEOPOROSIS, HORMONAL AND LABIDAL CHANGES, RESPIRATORY DEPRESSION AND . PATIENT IS ADVISED NOT TO DRIVE WHILE ON THESE MEDICATIONS, PATIENT WAS ADVISED TO START A WALKING PROGRAM TO STRENGTHEN LUMBAR PARASPINAL MUSCLES AND IMPROVE MOBILITY. THEY WERE ADVISED THAT THIS WILL IMPROVE WEIGHT LOSS AND ALSO DEPRESSION/FIBROMYALGIA SYMPTOMS. ADVISED TO WALK 10 MINUTES EVERY OTHER DAY ON A FLAT SURFACE. EMPHASIZED THE IMPORTANCE OF DOING THIS CONSISTANTLY AND NOT SPORATICALLY TO AVOID INJURY. STRONG ADVISED NOT TO DO MORE THAN 10 MINUTES EVERY OTHER DSY FOR THE FIRST 4 WEEKS., #128 - SCREENING BMI AND F/U PLAN IN : BMI ABOVE NORMAL TODAY. DISCUSSED WITH PATIENT NUTRITIONAL FOOD CHOICES TO ASSIST WITH WEIGHT LOSS. RECCOMMENDED REDUCING SALT, SUGAR, SODA INTAKE. RECOMMEND INCREASE ACTIVITY TO INCLUDE WALKING ON A REGULAR BASIS. PROFESSIONAL NUTRITIONAL NUTRITIONAL GUIDANCE WAS OFFERED AND WAS DECLINED. PROCEDURE CODES FA211 ESTABILISHED PATIENT [facility] FACILITY CHARGE G8783 BP SCR PRFRM RCMDD DEFIND SCR INTVL G8730 PAIN ASSESS POS TOOL F/U PLAN DOC 3016F PT SCRND UNHLTHY [place] USE 1124F ACP DISCUSS-NO DSCNMKR DOCD 1036F TOBACCO NON-USER G8427 DOC MEDS VERIFIED W/PT OR RE G8417 BMI >=30 CALCUATE W/FOLLOWUP DISPOSITION & COMMUNICATION FOLLOW UP 4 WEEKS ELECTRONICALLY SIGNED BY KENDALL MOSLEY ON 07/02/2017 AT 12:41 PM EDT DISCLAIMER : THIS IS A VISIT SUMMARY EXTRACTED FROM THE [facility] CHART. IT IS NOT A COPY OF THE [facility] PROGRESS NOTE. MTDD
== END ==
LOC: M PAIN 14:15
PROVIDERS: ATTEND Nurse Practitioner Family
DX: G89.29 Other chronic pain (principal); M51.26 Other intervertebral disc displacement, lumbar region; M79.1 Myalgia; E11.9 Type 2 diabetes mellitus without complications; E03.9 Hypothyroidism, unspecified; J45.909 Unspecified asthma, uncomplicated; I10 Essential (primary) hypertension; K76.0 Fatty (change of) liver, not elsewhere classified; K21.9 Gastro-esophageal reflux disease without esophagitis; E88.81 Metabolic syndrome and other insulin resistance; E55.9 Vitamin D deficiency, unspecified; E66.01 Morbid (severe) obesity due to excess calories; Z68.42 Body mass index [BMI] 45.0-49.9, adult; D72.9 Disorder of white blood cells, unspecified; Z79.891 Long term (current) use of opiate analgesic; Z88.5 Allergy status to narcotic agent; Z88.8 Allergy status to other drugs, medicaments and biological substances; Z79.84 Long term (current) use of oral hypoglycemic drugs; Z79.899 Other long term (current) drug therapy

== ENCOUNTER → 2017-07-06 | Outpatient (REF) | payer MEDICARE ==
[2017-07-06 17:31] LABS: COMPLEMENT C4 42.5 MG/DL (10-40)
== END ==
LOC: M LABDRAWP 15:48 → M LAB REF 15:48
PROVIDERS: ATTEND Internal Medicine Rheumatology
DX: M32.9 Systemic lupus erythematosus, unspecified (principal); D50.0 Iron deficiency anemia secondary to blood loss (chronic); D63.8 Anemia in other chronic diseases classified elsewhere; Z79.899 Other long term (current) drug therapy

== ENCOUNTER → 2017-07-19 | Outpatient (REF) | payer MEDICARE ==
[2017-07-19 12:15] LABS: ALBUMIN 2.9 GM/DL (3.2-5.2); ALBUMIN/GLOBULIN RATIO 0.69 (1.00-1.93); BILIRUBIN,TOTAL 0.1 MG/DL (0.2-1.0); CREATININE FOR GFR 1.05 MG/DL (0.55-1.02); FREE T4 0.87 NG/DL (0.76-1.46); GLOMERULAR FILTRATION RATE 59.1 (>51); POTASSIUM SERUM 4.5 MEQ/L (3.5-5.1); TOTAL PROTEIN 7.1 GM/DL (6.4-8.2)
== END ==
LOC: M SFHCPLAZ 08:18
PROVIDERS: ATTEND Nurse Practitioner Family
DX: K76.0 Fatty (change of) liver, not elsewhere classified (principal); E03.9 Hypothyroidism, unspecified

== ENCOUNTER → 2017-08-31 | Outpatient (REF) | payer MEDICARE ==
[2017-08-31 13:47] LABS: CALCIUM LEVEL 8.4 MG/DL (8.5-10.1); CREATININE FOR GFR 1.08 MG/DL (0.55-1.02); FREE T4 1.05 NG/DL (0.76-1.46); GLOMERULAR FILTRATION RATE 57.2 (>51); POTASSIUM SERUM 4.3 MEQ/L (3.5-5.1)
== END ==
LOC: M SFHCPLAZ 09:25
PROVIDERS: ATTEND Nurse Practitioner Family
DX: E03.9 Hypothyroidism, unspecified (principal); I10 Essential (primary) hypertension

== ENCOUNTER → 2017-11-29 | Outpatient (REF) | payer MEDICARE ==
[2017-11-29 13:01] LABS: ANION GAP 7 MEQ/L (8-16); BLOOD UREA NITROGEN 10 MG/DL (7-18); CALCIUM LEVEL 8.6 MG/DL (8.5-10.1); CARBON DIOXIDE LEVEL 30 MEQ/L (21-32); CHLORIDE LEVEL 101 MEQ/L (98-107); CHOLESTEROL LEVEL 133 MG/DL (<200); CHOLESTEROL RISK RATIO 3.325 (<5); CREATININE FOR GFR 0.94 MG/DL (0.55-1.30); FREE T4 1.23 NG/DL (0.76-1.46); GLOMERULAR FILTRATION RATE > 60.0 (>51); GLUCOSE, FASTING 151 MG/DL (70-100); HDL CHOLESTEROL 40 MG/DL (>40); LDL CHOLESTEROL 67.8 MG/DL (<100); NON-HDL-C 93 MG/DL; POTASSIUM SERUM 4.1 MEQ/L (3.5-5.1); SODIUM LEVEL 138 MEQ/L (136-145); TRIGLYCERIDES LEVEL 126 MG/DL (<150)
== END ==
LOC: M SFHCPLAZ 09:22
DX: E03.9 Hypothyroidism, unspecified (principal); I10 Essential (primary) hypertension
CPT/HCPCS: 84443

== ENCOUNTER → 2017-11-30 | Outpatient (CLI) | payer MEDICARE | LOC: M WHC 09:57 | DX: Z12.31 Encounter for screening mammogram for malignant neoplasm of breast (principal); Z78.0 Asymptomatic menopausal state; Z92.23 Personal history of estrogen therapy; Z92.89 Personal history of other medical treatment | CPT/HCPCS: 77067 ==

== ENCOUNTER → 2017-11-30 | Outpatient (REF) | payer MEDICARE ==
[2017-12-07 14:11] LABS: HPV HYBRID CAPTURE II Negative (Negative)
== END ==
LOC: M SFHCWAGY 10:32
DX: Z12.4 Encounter for screening for malignant neoplasm of cervix (principal); R87.610 Atypical squamous cells of undetermined significance on cytologic smear of cervix (ASC-US); Z12.31 Encounter for screening mammogram for malignant neoplasm of breast
CPT/HCPCS: G0123

== ENCOUNTER 2018-04-22 13:12 | Emergency (ER) | payer MEDICARE | END 2018-04-22 17:38 | disposition home or self-care (01) | LOC: M ED 13:12 | DX: M25.532 Pain in left wrist (principal); R20.2 Paresthesia of skin; I10 Essential (primary) hypertension; J45.909 Unspecified asthma, uncomplicated; K21.9 Gastro-esophageal reflux disease without esophagitis; M19.90 Unspecified osteoarthritis, unspecified site; E03.9 Hypothyroidism, unspecified; F31.9 Bipolar disorder, unspecified; Z88.6 Allergy status to analgesic agent; Z88.8 Allergy status to other drugs, medicaments and biological substances; Z79.899 Other long term (current) drug therapy; Z79.84 Long term (current) use of oral hypoglycemic drugs; Z98.890 Other specified postprocedural states | CPT/HCPCS: 73130 ==

== ENCOUNTER 2018-07-20 11:45 | Emergency (ER) | payer MEDICARE ==
[2018-07-20 12:47] LABS: BASO # 0.1 10^3/uL (0.0-0.2); BASO % 0.4 % (0.0-1.0); EOS % 0.1 % (0.0-3.0); HEMATOCRIT 37.2 % (36.0-47.0); IMMATURE GRANULOCYTE % 0.5 % (0-3.0); LYMPH % 25.4 % (24.0-44.0); MEAN CORPUSCULAR HEMOGLOBIN 25.6 pg (27.0-33.0); MEAN CORPUSCULAR HGB CONC 32.3 g/dl (32.0-36.5); MEAN CORPUSCULAR VOLUME 79.3 fl (80.0-96.0); MONO % 8.9 % (0.0-5.0); NEUTROPHILS # 7.5 10^3/uL (1.8-7.7); NEUTROPHILS % 64.7 % (36.0-66.0); PLATELET COUNT, AUTOMATED 512 10^3/uL (150-450); RED BLOOD COUNT 4.69 10^6/uL (4.00-5.40); RED CELL DISTRIBUTION WIDTH 17.7 % (11.5-14.5); WHITE BLOOD COUNT 11.6 10^3/uL (4.0-10.0)
[2018-07-20] MEDS: MORPHINE 4 MG/ML 1ML VIAL/SYRINGE (J2270) IV ×2 (12:51→13:50)
[2018-07-20] MEDS: NS 1,000 ML IV ×2 (12:51→13:30)
[2018-07-20] MEDS: ONDANSETRON 4MG/2ML VIAL (J2405) IV (12:51)
[2018-07-20 13:20] LABS: LACTIC ACID SEPSIS PROTOCOL 2.5 MMOL/L (0.4-2.0)
[2018-07-20 13:27] LABS: ALBUMIN 3.4 GM/DL (3.2-5.2); ALBUMIN/GLOBULIN RATIO 0.77 (1.00-1.93); ALKALINE PHOSPHATASE 121 U/L (45-117); ALT/SGPT 43 U/L (12-78); ANION GAP 18 MEQ/L (8-16); AST/SGOT 29 U/L (7-37); BILIRUBIN,DIRECT 0.2 MG/DL (0.0-0.2); BILIRUBIN,TOTAL 0.6 MG/DL (0.2-1.0); BLOOD UREA NITROGEN 13 MG/DL (7-18); CALCIUM LEVEL 9.1 MG/DL (8.5-10.1); CARBON DIOXIDE LEVEL 21 MEQ/L (21-32); CHLORIDE LEVEL 100 MEQ/L (98-107); CPK CREATINE PHOSPHOKINASE 158 U/L (26-192); CREATININE FOR GFR 1.23 MG/DL (0.55-1.30); GLUCOSE, FASTING 118 MG/DL (70-100); LIPASE 260 U/L (73-393); MB/CK RELATIVE INDEX 1.58 (< OR =4); POTASSIUM SERUM 3.4 MEQ/L (3.5-5.1); SODIUM LEVEL 139 MEQ/L (136-145); TOTAL PROTEIN 7.8 GM/DL (6.4-8.2); TROPONIN I 0.03 NG/ML (< 0.10)
[2018-07-20] MEDS ORDERED: ISOVUE-370 76% 100ML VIAL (Q9967) As Ordered (13:33)
[2018-07-20] MEDS: PANTOPRAZOLE 40MG INJ (PROTONIX) (C9113) IV (16:18)
[2018-07-20] MEDS: KETOROLAC 30 MG/ML VIAL (J1885) IV (16:19)
[2018-07-20] MEDS: MULTIVITAMIN -ADULT INJECTION 10 ML, THIAMINE INJection 100 MG, FOLIC ACID 1 MG in NS 1... IV (16:22)
[2018-07-20] MEDS: KCL 10MEQ/100ML SWI (KRUN) 10 MEQ in APPROPRIATE DILUENT 1 EA IV (16:24)
== END 2018-07-20 16:44 | disposition short-term general hospital (02) ==
LOC: M ED 11:45
DX: E86.0 Dehydration (principal); G89.18 Other acute postprocedural pain; Z98.84 Bariatric surgery status; R00.0 Tachycardia, unspecified; R94.31 Abnormal electrocardiogram [ECG] [EKG]; I25.10 Atherosclerotic heart disease of native coronary artery without angina pectoris; E11.9 Type 2 diabetes mellitus without complications; I10 Essential (primary) hypertension; E78.5 Hyperlipidemia, unspecified; D64.9 Anemia, unspecified; F31.9 Bipolar disorder, unspecified; J45.909 Unspecified asthma, uncomplicated; J44.9 Chronic obstructive pulmonary disease, unspecified; M81.0 Age-related osteoporosis without current pathological fracture; Z87.891 Personal history of nicotine dependence; Z79.899 Other long term (current) drug therapy; Z88.6 Allergy status to analgesic agent; Z88.8 Allergy status to other drugs, medicaments and biological substances; Z88.5 Allergy status to narcotic agent
CPT/HCPCS: C9113

== ENCOUNTER → 2018-08-10 | Outpatient (CLI) | payer MEDICARE ==
[~2018-08-10] MED LIST changes: +AMLO5TAB4 PO; +CEVI1CAP PO; +DIVA1TAB48 PO; +DIVA250T7; +DULO1CAP3 PO; +ENOX40IN3; +FAMO1TAB11 PO; +LEVO175T2 PO; +LISI10TA4 PO; +LYRI200C; +METF500T4; +METO1TAB87 PO; +MONT10TA2 PO; +OMEP40CA2 PO; +ONDA4TAB5 PO; +PERC5TAB12 PO; +VITA50005 PO
[2018-08-10 13:03] LABS: BASO % 0.4 % (0.0-1.0); EOS # 0.1 10^3/uL (0.0-0.50); EOS % 1.3 % (0.0-3.0); HEMATOCRIT 35.7 % (36.0-47.0); HEMOGLOBIN 10.8 g/dl (12.0-15.5); LYMPH # 2.5 10^3/uL (1.5-4.5); LYMPH % 26.4 % (24.0-44.0); MEAN CORPUSCULAR HEMOGLOBIN 25.8 pg (27.0-33.0); MEAN CORPUSCULAR HGB CONC 30.3 g/dl (32.0-36.5); MEAN CORPUSCULAR VOLUME 85.2 fl (80.0-96.0); MONO # 0.7 10^3/uL (0.0-0.8); MONO % 7.4 % (0.0-5.0); NEUTROPHILS % 64.3 % (36.0-66.0); PLATELET COUNT, AUTOMATED 366 10^3/uL (150-450); RED BLOOD COUNT 4.19 10^6/uL (4.00-5.40); WHITE BLOOD COUNT 9.3 10^3/uL (4.0-10.0)
[2018-08-10 13:20] LABS: INR 0.98; PROTHROMBIN TIME 13.1 SECONDS (12.1-14.4)
[2018-08-10 13:24] LABS: ERYTHROCYTE SEDIMENTATION RATE 77 mm/hr (0-30)
[2018-08-10 13:26] LABS: CREATININE, URINE 93.9 MG/DL; MALB URINE SIEMENS 62.9 MG/L
[2018-08-10 13:37] LABS: ALT/SGPT 42 U/L (12-78); BILIRUBIN,DIRECT < 0.1 MG/DL (0.0-0.2); BILIRUBIN,TOTAL 0.2 MG/DL (0.2-1.0); BLOOD UREA NITROGEN 10 MG/DL (7-18); C REACTIVE PROTEIN QUANTITATIV 3.74 MG/DL (0.00-0.30); CALCIUM LEVEL 8.9 MG/DL (8.5-10.1); CARBON DIOXIDE LEVEL 31 MEQ/L (21-32); CHLORIDE LEVEL 105 MEQ/L (98-107); CREATININE FOR GFR 1.07 MG/DL (0.55-1.30); FERRITIN 40 NG/ML (8-252); GLOMERULAR FILTRATION RATE 57.6 (>51); GLUCOSE, FASTING 93 MG/DL (70-100); IRON (FE) 32 UG/DL (50-170); PERCENT SATURATION 8.6 % (13.2-45.0); PREALBUMIN 21.8 MG/DL (20.0-40.0); SODIUM LEVEL 142 MEQ/L (136-145); TOTAL IRON BINDING CAPACITY 370 UG/DL (250-450); TOTAL PROTEIN 6.8 GM/DL (6.4-8.2)
[2018-08-16 00:56] LABS: ANTINUCLEAR ANTIBODIES DIRECT Negative (Negative); HLA-B27 Negative (.); RNP ANTIBODIES <0.2 AI (0.0-0.9); SMITH ANTIBODIES <0.2 AI (0.0-0.9); TRANSFERRIN 309 mg/dL (200-370)
== END ==
LOC: M LAB 11:54
PROVIDERS: ATTEND Family Medicine
DX: M13.0 Polyarthritis, unspecified (principal); D50.9 Iron deficiency anemia, unspecified; E11.9 Type 2 diabetes mellitus without complications; E88.09 Other disorders of plasma-protein metabolism, not elsewhere classified

== ENCOUNTER → 2018-11-22 | Outpatient (CLI) | payer MEDICARE, OTHER ==
[~2018-11-22] MED LIST changes: -AMLO5TAB4 PO; +AMLO5TAB6 PO
== END ==
LOC: M LAB 09:34
PROVIDERS: ATTEND Psychiatry & Neurology Psychiatry
DX: Z51.81 Encounter for therapeutic drug level monitoring (principal); Z79.899 Other long term (current) drug therapy

== ENCOUNTER → 2018-11-22 | Outpatient (CLI) | payer OTHER ==
[2018-11-22 10:48] LABS: BASO # 0.1 10^3/uL (0.0-0.2); BASO % 0.5 % (0.0-1.0); EOS # 0.1 10^3/uL (0.0-0.50); EOS % 0.7 % (0.0-3.0); HEMOGLOBIN 10.6 g/dl (12.0-15.5); LYMPH # 2.8 10^3/uL (1.5-4.5); LYMPH % 28.7 % (24.0-44.0); MEAN CORPUSCULAR HEMOGLOBIN 26.9 pg (27.0-33.0); MEAN CORPUSCULAR HGB CONC 31.2 g/dl (32.0-36.5); MEAN CORPUSCULAR VOLUME 86.3 fl (80.0-96.0); MONO # 0.6 10^3/uL (0.0-0.8); MONO % 6.4 % (0.0-5.0); NEUTROPHILS # 6.3 10^3/uL (1.8-7.7); NEUTROPHILS % 63.5 % (36.0-66.0); PLATELET COUNT, AUTOMATED 432 10^3/uL (150-450); RED BLOOD COUNT 3.94 10^6/uL (4.00-5.40); WHITE BLOOD COUNT 9.9 10^3/uL (4.0-10.0)
[2018-11-22 11:04] LABS: INR 1.01; PROTHROMBIN TIME 13.4 SECONDS (12.1-14.4)
[2018-11-22 11:08] LABS: ERYTHROCYTE SEDIMENTATION RATE 76 mm/hr (0-30)
[2018-11-22 11:10] LABS: CREATININE, URINE 98.8 MG/DL; MALB URINE SIEMENS 9.5 MG/L; MAU/CREAT RATIO 9.6 MCG/MG (0.0-30.0)
[2018-11-22 11:11] LABS: HEMOGLOBIN A1c 6.1 %
[2018-11-22 11:30] LABS: ALBUMIN 3.1 GM/DL (3.2-5.2); ALT/SGPT 19 U/L (12-78); BILIRUBIN,DIRECT < 0.1 MG/DL (0.0-0.2); BILIRUBIN,TOTAL 0.3 MG/DL (0.2-1.0); BLOOD UREA NITROGEN 10 MG/DL (7-18); C REACTIVE PROTEIN QUANTITATIV 3.91 MG/DL (0.00-0.30); CALCIUM LEVEL 8.7 MG/DL (8.5-10.1); CARBON DIOXIDE LEVEL 33 MEQ/L (21-32); CHLORIDE LEVEL 104 MEQ/L (98-107); CREATININE FOR GFR 0.88 MG/DL (0.55-1.30); FERRITIN 31 NG/ML (8-252); GLOMERULAR FILTRATION RATE > 60.0 (>51); GLUCOSE, FASTING 77 MG/DL (70-100); IRON (FE) 38 UG/DL (50-170); PERCENT SATURATION 8.9 % (13.2-45.0); POTASSIUM SERUM 4.1 MEQ/L (3.5-5.1); PREALBUMIN 21.8 MG/DL (20.0-40.0); SODIUM LEVEL 139 MEQ/L (136-145); TOTAL IRON BINDING CAPACITY 426 UG/DL (250-450); TOTAL PROTEIN 7.1 GM/DL (6.4-8.2)
[2018-11-23 11:06] LABS: TRANSFERRIN 353 mg/dL (200-370)
[2018-11-27 10:15] LABS: ANTINUCLEAR ANTIBODIES DIRECT Negative (Negative); HLA-B27 Negative (.); RNP ANTIBODIES <0.2 AI (0.0-0.9); SMITH ANTIBODIES <0.2 AI (0.0-0.9)
== END ==
LOC: M LAB 09:40
PROVIDERS: ATTEND Family Medicine
DX: M13.0 Polyarthritis, unspecified (principal); D50.9 Iron deficiency anemia, unspecified; E11.9 Type 2 diabetes mellitus without complications; E88.09 Other disorders of plasma-protein metabolism, not elsewhere classified; D72.829 Elevated white blood cell count, unspecified; Z51.81 Encounter for therapeutic drug level monitoring; Z79.899 Other long term (current) drug therapy

== ENCOUNTER → 2018-12-25 | Outpatient (CLI) | payer OTHER ==
--- NOTE | 2018-12-25 14:05 | REPMRS ---
Patient History The patient states she had a clinical breast exam in 11/2018. Patient is postmenopausal. Reductions of both breasts, 1986. Took estrogen for 2 years 3 months. 3D TOMOSYNTHESIS WAS PERFORMED. Digital Woman Screen Mammo: December 25, 2018 - Exam #: [id number] Bilateral CC and MLO view(s) were taken. Technologist: Sofia Pickard, Technologist Prior study comparison: November 30, 2017, digital woman screen mammo performed at [facility]. August 03, 2016, digital woman screen mammo performed at [facility] [employer] [facility]. FINDINGS: There are scattered fibroglandular densities. There has been no change in the appearance of the mammogram from the prior studies. There is a mild amount of residual fibroglandular tissue which is fairly symmetric. There is no interval development of dominant mass, architectural distortion, or clustered microcalcification suggestive of malignancy. Assessment: BI-RADS/ACR category 1 mammogram. Negative Mammogram. Recommendation Routine screening mammogram in 1 year (for women over age 40). This mammogram was interpreted with the aid of an FDA-approved computer-aided dectection system. Electronically Signed By: Julian Borjas MD 12/25/18 [id number]
== END ==
LOC: M WHC 11:34
PROVIDERS: ATTEND Nurse Practitioner Women's Health
DX: Z12.31 Encounter for screening mammogram for malignant neoplasm of breast (principal); Z78.0 Asymptomatic menopausal state; Z12.4 Encounter for screening for malignant neoplasm of cervix; R87.612 Low grade squamous intraepithelial lesion on cytologic smear of cervix (LGSIL); Z92.23 Personal history of estrogen therapy; Z98.890 Other specified postprocedural states
CPT/HCPCS: 77063; 77067; 87624; G0101; G0123

== ENCOUNTER → 2018-12-25 | Outpatient (REF) | payer OTHER ==
[2018-12-28 16:40] LABS: HPV HYBRID CAPTURE II Negative (Negative)
== END ==
LOC: M SFHCWAGY 11:44
PROVIDERS: ATTEND Nurse Practitioner Women's Health
DX: Z12.4 Encounter for screening for malignant neoplasm of cervix (principal); R87.612 Low grade squamous intraepithelial lesion on cytologic smear of cervix (LGSIL)

== ENCOUNTER → 2019-01-17 | Outpatient (CLI) | payer OTHER ==
[~2019-01-17] MED LIST changes: -/ACETCOD3T PO; -/ADVA50050 IN; -/CELE20CA OR; -/DULO30CA PO; +ACET1TAB16 PO; +ADVA1AER2 IN; +CELE1CAP4 OR; +CYMB1CAP5 PO
--- NOTE | 2019-01-17 16:01 | REP ---
MR CERVICAL SPINE WITHOUT CONTRAST: HISTORY: Cervicalgia. COMPARISON: 12/03/2012. A small central disc protrusion is present at the C3-4 level. There is minimal effacement of the thecal sac without spinal cord compression. The C3 neural foramina are patent. A small central disc protrusion is present at the C5-6 level. There is minimal effacement of the thecal sac without spinal cord compression. The C5 neural foramina are patent. A disc bulge and small left paracentral disc protrusion with associated osteophyte formation are present at the C6-7 level. There is mild effacement of the thecal sac without spinal cord compression. Uncinate process hypertrophy is present on the left. This produces mild narrowing of the left C6 neural foramina. The right C6 neural foramina is patent. There is no other disc bulge or herniation. The remaining neural foramina are patent. The spinal cord is normal in signal intensity. The C5-6 and C6-7 intervertebral discs are decreased in height consistent with disc degeneration. Normal signal intensity is present in the cervical vertebral bodies. IMPRESSION:There is cervical spondylosis at the C3-4, C5-6 and C6-7 levels without spinal cord compression. The disc protrusion at the C3-4 level is a new finding. Electronically Signed by Omid Valdez MD 01/17/2019 04:06 P
== END ==
LOC: M PLARAD 12:11
PROVIDERS: ATTEND Physician Assistant Medical
DX: M50.21 Other cervical disc displacement, high cervical region (principal); M47.892 Other spondylosis, cervical region; R20.2 Paresthesia of skin; Z51.81 Encounter for therapeutic drug level monitoring; Z79.899 Other long term (current) drug therapy; D50.9 Iron deficiency anemia, unspecified; I10 Essential (primary) hypertension; E03.9 Hypothyroidism, unspecified; E11.9 Type 2 diabetes mellitus without complications; Z98.84 Bariatric surgery status; E66.01 Morbid (severe) obesity due to excess calories; Z68.41 Body mass index [BMI] 40.0-44.9, adult

== ENCOUNTER → 2019-01-17 | Outpatient (CLI) | payer OTHER ==
[2019-01-17 13:32] LABS: HEMATOCRIT 34.8 % (36.0-47.0); HEMOGLOBIN 10.8 g/dl (12.0-15.5); MEAN CORPUSCULAR HEMOGLOBIN 27.1 pg (27.0-33.0); MEAN CORPUSCULAR VOLUME 87.4 fl (80.0-96.0); PLATELET COUNT, AUTOMATED 387 10^3/uL (150-450); RED BLOOD COUNT 3.98 10^6/uL (4.00-5.40); WHITE BLOOD COUNT 9.4 10^3/uL (4.0-10.0)
[2019-01-17 14:21] LABS: ALBUMIN 3.3 GM/DL (3.2-5.2); ALT/SGPT 21 U/L (12-78); BILIRUBIN,TOTAL 0.3 MG/DL (0.2-1.0); BLOOD UREA NITROGEN 14 MG/DL (7-18); CALCIUM LEVEL 8.5 MG/DL (8.5-10.1); CARBON DIOXIDE LEVEL 29 MEQ/L (21-32); CHLORIDE LEVEL 106 MEQ/L (98-107); CHOLESTEROL LEVEL 180 MG/DL (<200); CHOLESTEROL RISK RATIO 3.461 (<5); CREATININE FOR GFR 0.86 MG/DL (0.55-1.30); FERRITIN 25 NG/ML (8-252); FREE T4 1.13 NG/DL (0.76-1.46); GLOMERULAR FILTRATION RATE > 60.0 (>51); GLUCOSE, FASTING 77 MG/DL (70-100); HDL CHOLESTEROL 52 MG/DL (>40); LDL CHOLESTEROL 104 MG/DL (<100); NON-HDL-C 128 MG/DL; POTASSIUM SERUM 3.8 MEQ/L (3.5-5.1); SODIUM LEVEL 139 MEQ/L (136-145); TOTAL 25(OH) VITAMIN D 30.4 NG/ML (30.0-100.0); TOTAL PROTEIN 6.9 GM/DL (6.4-8.2); TRIGLYCERIDES LEVEL 119 MG/DL (<150)
[2019-01-17 15:10] LABS: HEMOGLOBIN A1c 5.8 %
== END ==
LOC: M LAB 12:42
PROVIDERS: ATTEND Nurse Practitioner Family
DX: D50.9 Iron deficiency anemia, unspecified (principal); I10 Essential (primary) hypertension; E03.9 Hypothyroidism, unspecified; E11.9 Type 2 diabetes mellitus without complications; Z98.84 Bariatric surgery status; E66.01 Morbid (severe) obesity due to excess calories; Z68.41 Body mass index [BMI] 40.0-44.9, adult

== ENCOUNTER → 2019-01-23 | Outpatient (CLI) | payer OTHER ==
--- NOTE | 2019-01-23 14:26 | REP ---
Pelvic sonography: History: Postmenopausal bleeding. Findings: Transabdominal and transvaginal scanning are performed. Uterine dimensions are in the upper range of normal at 10.7 x 4.0 x 5.5 cm. Endometrial echo is 1.4 cm thick and slightly heterogeneous. I cannot exclude endometrial hyperplasia/neoplasia. Nabothian cysts are seen in the cervix. No focal myometrial mass is seen. The left ovary could not be seen either transabdominally or transvaginally. Right ovary is normal measuring 2.3 x 1.0 x 2.2 cm. It is visualized transabdominally only. No free fluid is seen. Impression: Left ovary could not be directly visualized. Nabothian cysts are seen in the cervix. Endometrial thickening is observed. Electronically Signed by Kevin Lopez MD 01/23/2019 02:18 P
== END ==
LOC: M WHC 10:35
PROVIDERS: ATTEND Nurse Practitioner Women's Health
DX: N95.0 Postmenopausal bleeding (principal); N88.8 Other specified noninflammatory disorders of cervix uteri

== ENCOUNTER → 2019-01-27 | Outpatient (REF) | payer OTHER ==
[~2019-01-27] MED LIST changes: +DIVA500T9; +RIZA10TA4; +TIZA4TAB4
== END ==
LOC: M SFHCWAGY 14:09
PROVIDERS: ATTEND Nurse Practitioner Women's Health
DX: R87.612 Low grade squamous intraepithelial lesion on cytologic smear of cervix (LGSIL) (principal); N95.0 Postmenopausal bleeding

== ENCOUNTER 2019-02-01 10:50 | Emergency (ER) | payer OTHER ==
[~2019-02-01] VITALS: Ht 154.9 cm; Wt 92.7 kg
[~2019-02-01 10:50] MED LIST changes: -DIVA500T9; -LYRI200C; -RIZA10TA4; -TIZA4TAB4
[2019-02-01] MEDS ORDERED: DIVA500T9 PO (11:06)
[2019-02-01] MEDS ORDERED: RIZA10TA4 (11:06)
[2019-02-01] MEDS ORDERED: TIZA4TAB4 PO (11:06)
[2019-02-01] MEDS ORDERED: PERCOCET 5MG/325MG TAB PO ONE (11:30)
--- NOTE | 2019-02-01 12:23 | REP ---
CT BRAIN WITHOUT IV CONTRAST: CT brain performed without IV contrast. There appears to be mild atrophy. There is no midline shift or mass effect. Borjas-white differentiation is well maintained. There is no acute intracranial hemorrhage or extra-axial fluid collection. No skull fracture is seen. IMPRESSION: No evidence of acute intracranial hemorrhage or skull fracture. Mild atrophy. Electronically Signed by Julian Borjas MD 02/01/2019 03:48 P
--- NOTE | 2019-02-01 12:26 | REP ---
CT CERVICAL SPINE: CT cervical spine performed in the axial plane with sagittal and coronal reconstruction images. There is no compression fracture or malalignment. There is no prevertebral soft tissue swelling. There is moderate spurring anteriorly of C3 through C7 with posterior osteophytic ridging also seen at C6 and C7. There is disc space narrowing to a relatively degree at C5-6 and C6-7. Spinal canal appears adequate although it is mildly narrowed at the C6-7 level. IMPRESSION: No evidence of acute fracture or dislocation. Degenerative changes as above most significantly at the C6-7 level. Electronically Signed by Julian Borjas MD 02/01/2019 03:48 P
--- NOTE | 2019-02-01 13:00 | REP ---
BILATERAL SHOULDER SERIES: Three views of bilateral shoulders performed. There is no fracture or dislocation. There is narrowing and spurring at the glenohumeral joints and mild narrowing at the acromioclavicular joints. No other significant findings are seen. IMPRESSION: Mild degenerative changes. No fracture or dislocation. Electronically Signed by Julian Borjas MD 02/01/2019 03:49 P
--- NOTE | 2019-02-01 13:01 | REP ---
PELVIS AND LEFT HIP: AP view of the pelvis and AP and frogleg views of the left hip are performed. There is no acute fracture or dislocation. There are mild degenerative changes at the hip joints and the visualized lower lumbar spine. IMPRESSION: No fracture or dislocation. Electronically Signed by Julian Borjas MD 02/01/2019 03:50 P
[2019-02-01 13:36] VITALS: BP 108/53
== END 2019-02-01 13:38 | disposition home or self-care (01) ==
LOC: M ED 10:50 → EDBD 10:50 → M ED 13:38
DX: S16.1XXA Strain of muscle, fascia and tendon at neck level, initial encounter (principal); T14.8XXA Other injury of unspecified body region, initial encounter; V43.52XA Car driver injured in collision with other type car in traffic accident, initial encounter; Y92.9 Unspecified place or not applicable; Y93.9 Activity, unspecified; Y99.9 Unspecified external cause status; M50.323 Other cervical disc degeneration at C6-C7 level; Z79.84 Long term (current) use of oral hypoglycemic drugs; Z79.899 Other long term (current) drug therapy; Z88.6 Allergy status to analgesic agent; Z88.1 Allergy status to other antibiotic agents; Z88.5 Allergy status to narcotic agent; Z88.8 Allergy status to other drugs, medicaments and biological substances

== ENCOUNTER → 2019-02-28 | Outpatient (CLI) | payer OTHER ==
[~2019-02-28] MED LIST changes: +DIVA500T9; +LYRI200C; +RIZA10TA4; +TIZA4TAB4
[2019-02-28 16:24] LABS: FREE T4 1.08 NG/DL (0.76-1.46); THYROID STIMULATING HORMONE 2.59 uIU/ML (0.358-3.740)
== END ==
LOC: M LAB 14:31
PROVIDERS: ATTEND Nurse Practitioner Family
DX: E03.9 Hypothyroidism, unspecified (principal)
CPT/HCPCS: 36415; 84439; 84443; G0463

== ENCOUNTER → 2019-04-18 | Outpatient (CLI) | payer OTHER ==
[~2019-04-18] MED LIST changes: -DIVA500T9; +DIVA500T9 PO; -DULO1CAP3 PO; +DULO1CAP6 PO; -LYRI200C; -TIZA4TAB4; +TIZA4TAB4 PO
== END ==
LOC: M LAB 11:17
PROVIDERS: ATTEND Family Medicine
DX: Z51.81 Encounter for therapeutic drug level monitoring (principal)

== ENCOUNTER → 2019-04-18 | Outpatient (CLI) | payer OTHER ==
[2019-04-18 11:57] LABS: HEMATOCRIT 35.2 % (36.0-47.0); HEMOGLOBIN 10.9 g/dl (12.0-15.5); MEAN CORPUSCULAR HEMOGLOBIN 27.1 pg (27.0-33.0); MEAN CORPUSCULAR VOLUME 87.6 fl (80.0-96.0); PLATELET COUNT, AUTOMATED 405 10^3/uL (150-450); RED BLOOD COUNT 4.02 10^6/uL (4.00-5.40); WHITE BLOOD COUNT 10.5 10^3/uL (4.0-10.0)
[2019-04-18 12:19] LABS: HEMOGLOBIN A1c 5.5 %
[2019-04-18 12:36] LABS: ALBUMIN 3.1 GM/DL (3.2-5.2); ALT/SGPT 19 U/L (12-78); BILIRUBIN,TOTAL 0.2 MG/DL (0.2-1.0); BLOOD UREA NITROGEN 11 MG/DL (7-18); CALCIUM LEVEL 8.9 MG/DL (8.5-10.1); CARBON DIOXIDE LEVEL 27 MEQ/L (21-32); CHLORIDE LEVEL 109 MEQ/L (98-107); CREATININE FOR GFR 0.84 MG/DL (0.55-1.30); FERRITIN 25 NG/ML (8-252); FREE T4 1.38 NG/DL (0.76-1.46); GLOMERULAR FILTRATION RATE > 60.0 (>51); GLUCOSE, FASTING 81 MG/DL (70-100); POTASSIUM SERUM 4.2 MEQ/L (3.5-5.1); SODIUM LEVEL 143 MEQ/L (136-145); THYROID STIMULATING HORMONE 0.872 uIU/ML (0.358-3.740)
[2019-04-18 12:54] LABS: MALB URINE SIEMENS 11.2 MG/L; MAU/CREAT RATIO 9.7 MCG/MG (0.0-30.0)
[2019-04-18 13:18] LABS: TOTAL 25(OH) VITAMIN D 42.6 NG/ML (30.0-100.0)
== END ==
LOC: M LAB 11:24
PROVIDERS: ATTEND Nurse Practitioner Family
DX: D50.9 Iron deficiency anemia, unspecified (principal); I10 Essential (primary) hypertension; E03.9 Hypothyroidism, unspecified; R73.03 Prediabetes; E55.9 Vitamin D deficiency, unspecified

== ENCOUNTER → 2019-06-10 | Outpatient (CLI) | payer OTHER ==
[~2019-06-10] MED LIST changes: +CETI10CH PO; +CHOL100029 PO; +CYAN500T8 PO; +DIGE1CHW PO; +FERR325T82 PO; +LEVO150T7 PO; +METF-791; -METF500T4; +MULTCAP PO
[2019-06-10 11:33] LABS: HEMOGLOBIN 11.4 g/dl (12.0-15.5); MEAN CORPUSCULAR HEMOGLOBIN 27.7 pg (27.0-33.0); MEAN CORPUSCULAR HGB CONC 30.8 g/dl (32.0-36.5); PLATELET COUNT, AUTOMATED 389 10^3/uL (150-450); RED BLOOD COUNT 4.11 10^6/uL (4.00-5.40); WHITE BLOOD COUNT 11.2 10^3/uL (4.0-10.0)
[2019-06-10 12:01] LABS: HEMOGLOBIN A1c 5.8 %
[2019-06-10 12:09] LABS: CREATININE, URINE 36.3 MG/DL; MALB URINE SIEMENS < 5.0 MG/L; MAU/CREAT RATIO 13.7 MCG/MG (0.0-30.0)
[2019-06-10 12:10] LABS: ALBUMIN 3.1 GM/DL (3.2-5.2); ALT/SGPT 20 U/L (12-78); BILIRUBIN,TOTAL 0.2 MG/DL (0.2-1.0); BLOOD UREA NITROGEN 10 MG/DL (7-18); CALCIUM LEVEL 8.8 MG/DL (8.5-10.1); CARBON DIOXIDE LEVEL 27 MEQ/L (21-32); CHLORIDE LEVEL 108 MEQ/L (98-107); CREATININE FOR GFR 0.84 MG/DL (0.55-1.30); FERRITIN 32 NG/ML (8-252); FREE T4 1.42 NG/DL (0.76-1.46); GLOMERULAR FILTRATION RATE > 60.0 (>51); GLUCOSE, FASTING 80 MG/DL (70-100); POTASSIUM SERUM 4.2 MEQ/L (3.5-5.1); SODIUM LEVEL 143 MEQ/L (136-145); THYROID STIMULATING HORMONE 0.118 uIU/ML (0.358-3.740); TOTAL 25(OH) VITAMIN D 41.1 NG/ML (30.0-100.0); TOTAL PROTEIN 7.1 GM/DL (6.4-8.2)
== END ==
LOC: M LAB 10:45
PROVIDERS: ATTEND Nurse Practitioner Family
DX: D50.9 Iron deficiency anemia, unspecified (principal); I10 Essential (primary) hypertension; E03.9 Hypothyroidism, unspecified; R73.03 Prediabetes; E55.9 Vitamin D deficiency, unspecified; Z79.899 Other long term (current) drug therapy

== ENCOUNTER 2019-07-31 08:58 | Day surgery (SDC) | payer OTHER ==
[~2019-07-31] VITALS: Ht 154.9 cm; Wt 89.8 kg
[~2019-07-31 08:58] MED LIST changes: +DEPA250T32 PO; +KETOROLAC 60 MG/2 ML VIAL (J1885) As Ordered ONE; +LIDOCAINE 1% MDV 20ML VIAL SQ PRN; +LIDOCAINE 2% INJ 100 MG/5 ML SDV (FOR ANES.) As Ordered ONE; +LR 1,000 ML IV ONE; -OMEP40CA2 PO; +OMEP40CA97 PO; +ONDANSETRON 4MG/2ML VIAL (J2405) As Ordered ONE; +PROPOFOL 200 MG/20 ML VIAL As Ordered ONE; -RIZA10TA4; +RIZA10TA58; +dexameTHASONE 4 MG/ML 1ML VIAL (J1100) As Ordered ONE
[2019-07-31] MEDS ORDERED: fentaNYL 100 MCG/2 ML INJECTION (J3010) As Ordered ONE (10:21)
[2019-07-31] MEDS ORDERED: MIDAZOLAM INJ 2 MG/2 ML VIAL (J2250) As Ordered ONE (10:22)
[2019-07-31] MEDS ORDERED: LR 1,000 ML IV SCH (12:30)
[2019-07-31] MEDS ORDERED: ONDANSETRON 4MG/2ML VIAL (J2405) IV PRN (12:30)
[2019-07-31] MEDS ORDERED: fentaNYL 100 MCG/2 ML INJECTION (J3010) IV PRN (12:30)
[2019-07-31] MEDS: HYDROMORPHONE HCL 0.5 MG/ 0.5 ML SYRINGE (J1170 PER 1) IV PRN ×4 (12:30→12:55)
[2019-07-31] MEDS: PERCOCET 5MG/325MG TAB PO PRN ×2 (12:30→13:00)
--- NOTE | 2019-07-31 13:27 | RO ---
DATE OF PROCEDURE: 07/31/2019 PREOPERATIVE DIAGNOSES/INDICATION FOR SURGERY: Bleeding, abnormal ultrasound and a history of hyperplasia. POSTOPERATIVE DIAGNOSES: Bleeding, abnormal ultrasound and a history of hyperplasia. PROCEDURE: Dilation and curettage (D and C), hysteroscopy, MyoSure reseciton. SURGEON: Gloria Rizvi MD GRAIN PACKER: ANESTHESIA: Laryngeal mask airway (LMA). BRIEF DESCRIPTION OF PROCEDURE AND FINDINGS: Terrance was brought to the operating room where sufficient LMA anesthesia was induced. She was prepped, draped and positioned in the usual sterile fashion. The bladder was emptied and the cervix was grasped with a single-tooth tenaculum. She has a stenotic cervix. Careful dilation was undertaken and then the hysteroscope was then placed to visualize the endometrium and a very tiny-like 3 mm anterior fundal polyp was noted. Otherwise, very bland smooth, sort of thinned out endometrium, and a little even smaller sort of polyp we think towards the right cornu but quite, quite small. There were no obvious hyperplastic polyps or anything like that. We did take the MyoSure light and just resected as much as the endometrium as we could as well as taking out the teeny little polyps sending all of that to pathology. Having completed the MyoSure resection we did do a curettage as well. We definitely tried to also resect some of the cervix where that stenosis was and then the procedure was ended. ESTIMATED BLOOD LOSS: About 3 mL. FLUID REPLACEMENT: Crystalloid. COMPLICATIONS: None. CONDITION AND DISPOSITION: Terrance tolerated the procedure well and was recovering in the recovery room in good condition.
[2019-07-31] MEDS ORDERED: ACETAMINOPHEN TAB 650MG DOSE (2X325MG) PO PRN (13:31)
[2019-07-31 14:30] VITALS: BP 133/60
== END 2019-07-31 14:35 | disposition home or self-care (01) ==
LOC: M SDC 08:58
PROVIDERS: ATTEND Obstetrics & Gynecology
DX: N84.0 Polyp of corpus uteri (principal); N88.2 Stricture and stenosis of cervix uteri; R93.89 Abnormal findings on diagnostic imaging of other specified body structures; I10 Essential (primary) hypertension; D50.9 Iron deficiency anemia, unspecified; E78.00 Pure hypercholesterolemia, unspecified; E03.9 Hypothyroidism, unspecified; R73.03 Prediabetes; J30.9 Allergic rhinitis, unspecified; K21.9 Gastro-esophageal reflux disease without esophagitis; E55.9 Vitamin D deficiency, unspecified; K58.9 Irritable bowel syndrome, unspecified; Z98.84 Bariatric surgery status; K76.0 Fatty (change of) liver, not elsewhere classified; K74.60 Unspecified cirrhosis of liver; R06.02 Shortness of breath; M51.16 Intervertebral disc disorders with radiculopathy, lumbar region; F31.9 Bipolar disorder, unspecified; F41.9 Anxiety disorder, unspecified; M81.0 Age-related osteoporosis without current pathological fracture; G43.909 Migraine, unspecified, not intractable, without status migrainosus; G47.33 Obstructive sleep apnea (adult) (pediatric); J01.00 Acute maxillary sinusitis, unspecified; F17.210 Nicotine dependence, cigarettes, uncomplicated; Z88.8 Allergy status to other drugs, medicaments and biological substances; Z88.5 Allergy status to narcotic agent; Z88.6 Allergy status to analgesic agent; Z79.899 Other long term (current) drug therapy
CPT/HCPCS: 58558; 81025; 88305; J1100; J1170; J2250; J2405; J3010

== ENCOUNTER → 2019-08-04 | Outpatient (REF) | payer MEDICARE ==
[~2019-08-04] MED LIST changes: -KETOROLAC 60 MG/2 ML VIAL (J1885) As Ordered ONE; -LIDOCAINE 1% MDV 20ML VIAL SQ PRN; -LIDOCAINE 2% INJ 100 MG/5 ML SDV (FOR ANES.) As Ordered ONE; -LR 1,000 ML IV ONE; -ONDANSETRON 4MG/2ML VIAL (J2405) As Ordered ONE; -PROPOFOL 200 MG/20 ML VIAL As Ordered ONE; -dexameTHASONE 4 MG/ML 1ML VIAL (J1100) As Ordered ONE
[2019-08-04 13:08] LABS: BASO # 0.1 10^3/uL (0.0-0.2); BASO % 0.6 % (0.0-1.0); EOS # 0.1 10^3/uL (0.0-0.5); EOS % 0.8 % (0.0-3.0); HEMATOCRIT 39.1 % (36.0-47.0); HEMOGLOBIN 12.2 g/dl (12.0-15.5); LYMPH # 3.5 10^3/uL (1.5-5.0); LYMPH % 30.6 % (24.0-44.0); MEAN CORPUSCULAR HEMOGLOBIN 28.4 pg (27.0-33.0); MEAN CORPUSCULAR HGB CONC 31.2 g/dl (32.0-36.5); MEAN CORPUSCULAR VOLUME 91.1 fl (80.0-96.0); MONO # 0.7 10^3/uL (0.0-0.8); MONO % 6.4 % (0.0-5.0); NEUTROPHILS # 7.1 10^3/uL (1.5-8.5); NEUTROPHILS % 61.4 % (36.0-66.0); PLATELET COUNT, AUTOMATED 403 10^3/uL (150-450); RED BLOOD COUNT 4.29 10^6/uL (4.00-5.40); WHITE BLOOD COUNT 11.5 10^3/uL (4.0-10.0)
[2019-08-04 13:44] LABS: C REACTIVE PROTEIN QUANTITATIV 2.93 MG/DL (0.00-0.30); RHEUMATOID FACTOR QUANT < 10.0 IU/ML (<15.0)
[2019-08-04 13:53] LABS: ERYTHROCYTE SEDIMENTATION RATE 52 mm/hr (0-30)
[2019-08-06 00:06] LABS: ANTINUCLEAR ANTIBODIES DIRECT Negative (Negative); Lyme Disease IgG/IgM Antibodie <0.91 ISR (0.00-0.90); Lyme Disease IgM Ab Quantitati <0.80 index (0.00-0.79)
== END ==
LOC: M LABDRAW1 12:28
PROVIDERS: ATTEND Orthopaedic Surgery
DX: M17.0 Bilateral primary osteoarthritis of knee (principal); Z79.899 Other long term (current) drug therapy

== ENCOUNTER → 2019-09-05 | Outpatient (REF) | payer OTHER ==
[2019-09-05 14:45] LABS: BLOOD UREA NITROGEN 10 MG/DL (7-18); CALCIUM LEVEL 8.6 MG/DL (8.5-10.1); CARBON DIOXIDE LEVEL 31 MEQ/L (21-32); CHLORIDE LEVEL 106 MEQ/L (98-107); FREE T4 1.05 NG/DL (0.76-1.46); GLOMERULAR FILTRATION RATE > 60.0 (>51); GLUCOSE, FASTING 72 MG/DL (70-100); POTASSIUM SERUM 4.5 MEQ/L (3.5-5.1); SODIUM LEVEL 143 MEQ/L (136-145); URIC ACID 5.3 MG/DL (2.6-6.0)
== END ==
LOC: M SFHCPLAZ 11:41
PROVIDERS: ATTEND Nurse Practitioner Family
DX: M79.675 Pain in left toe(s) (principal); E03.9 Hypothyroidism, unspecified; I10 Essential (primary) hypertension

== ENCOUNTER → 2019-09-05 | Outpatient (REF) | payer OTHER ==
[2019-09-05 20:46] LABS: ALBUMIN 3.1 GM/DL (3.2-5.2); ALT/SGPT 18 U/L (12-78); BILIRUBIN,DIRECT < 0.1 MG/DL (0.0-0.2); BILIRUBIN,TOTAL 0.2 MG/DL (0.2-1.0); VALPROIC ACID (DEPAKOTE) 38.4 UG/ML (50.0-100.0)
== END ==
LOC: M LAB REF 19:30
PROVIDERS: ATTEND Psychiatry & Neurology Psychiatry
DX: Z51.81 Encounter for therapeutic drug level monitoring (principal)

== ENCOUNTER → 2019-10-24 | Outpatient (CLI) | payer OTHER ==
[~2019-10-24] MED LIST changes: -MONT10TA2 PO; +MONT10TA4 PO; +ONDA-83 PO; -ONDA4TAB5 PO
--- NOTE | 2019-10-24 13:50 | REP ---
MRI lumbar spine without contrast: History: Low back pain. Intervertebral disc degeneration. Comparison MRI study is from August 03, 2014. Technique: Sagittal and axial T1 and T2-weighted scans are acquired in the usual fashion with and without fat saturation. Sequences include spin echo, turbo spin-echo, and STIR imaging sequences. MRI findings: A small benign hemangioma is again noted at L3. There is no evidence of spondylolysis however, there is a new grade 1, 3 mm, L4-5 spondylolisthesis. At L4-5, there is diffuse disc bulging. Ligamentum flavum and facet hypertrophy contributed to central canal stenosis which is more pronounced and moderate in degree when compared with the prior study. Midline AP dimension of the thecal sac at L4-5 is 6 mm. There is minimal foraminal narrowing from facet hypertrophy. Facet hypertrophy is more pronounced at L4-5 than it was in 2014. At L5-S1, there is facet hypertrophy present bilaterally. This is essentially unchanged. A right foraminal disc protrusion is evident as seen previously. This contributes to right neural foraminal narrowing. On axial images this appears slightly more prominent. At L3-4, there is minimal diffuse disc bulging. There is ligamentum flavum hypertrophy producing borderline canal size. Midline AP dimension of the thecal sac is 10 mm. At L2-3 and L1-2, there is no significant abnormality. No extraspinal abnormality is seen. The tip of the conus medullaris is normal in position and appearance at L1. Impression: At L4-5 there has been some progressive degenerative disc disease with central canal stenosis and a new grade 1, 3 mm L4-5 spondylolisthesis. There is new mild bilateral L4-5 foraminal narrowing. Facet osteoarthritis has progressed as well at this level. At L5-S1 there is a right foraminal disc protrusion again noted perhaps a little more prominent as well. Electronically Signed by Kevin Lopez MD 10/24/2019 06:38 P
== END ==
LOC: M PLARAD 10:20
PROVIDERS: ATTEND Physician Assistant Medical
DX: M54.5 Low back pain (principal); M51.36 Other intervertebral disc degeneration, lumbar region
CPT/HCPCS: 72148; G0463

== ENCOUNTER → 2019-12-18 | Outpatient (CLI) | payer OTHER ==
[2019-12-18 13:41] LABS: HEMOGLOBIN A1c 5.5 %
[2019-12-18 13:52] LABS: BLOOD UREA NITROGEN 9 MG/DL (7-18); CALCIUM LEVEL 8.6 MG/DL (8.5-10.1); CARBON DIOXIDE LEVEL 29 MEQ/L (21-32); CHLORIDE LEVEL 107 MEQ/L (98-107); CREATININE FOR GFR 0.86 MG/DL (0.55-1.30); FREE T4 1.42 NG/DL (0.76-1.46); GLOMERULAR FILTRATION RATE > 60.0 (>51); GLUCOSE, FASTING 69 MG/DL (70-100); POTASSIUM SERUM 4.1 MEQ/L (3.5-5.1); SODIUM LEVEL 140 MEQ/L (136-145); THYROID STIMULATING HORMONE 0.155 uIU/ML (0.358-3.740)
[2019-12-18 13:53] LABS: MALB URINE SIEMENS < 5.0 MG/L; MAU/CREAT RATIO 11.3 MCG/MG (0.0-30.0)
== END ==
LOC: M LAB 12:05
PROVIDERS: ATTEND Nurse Practitioner Family
DX: E03.9 Hypothyroidism, unspecified (principal); I10 Essential (primary) hypertension; R73.03 Prediabetes; M79.672 Pain in left foot; M54.9 Dorsalgia, unspecified; R70.0 Elevated erythrocyte sedimentation rate; F31.81 Bipolar II disorder

== ENCOUNTER → 2019-12-18 | Outpatient (CLI) | payer OTHER ==
--- NOTE | 2019-12-18 19:46 | REP ---
Clinical: Chronic pain. Technique: AP, lateral, bilateral oblique views of the left foot. Findings: Generalized age-related changes are appreciated. No acute fracture or dislocation. No obvious healed injury. No overt arthritic changes are identified. Surrounding soft tissues are unremarkable. Joint spaces are grossly normal. Impression: Essentially age-appropriate left foot examination. Electronically Signed by Regino Lovell MD 12/18/2019 07:37 P
== END ==
LOC: M RAD 12:09 → M LAB 12:09
PROVIDERS: ATTEND Physician Assistant Medical
DX: M79.672 Pain in left foot (principal); M54.9 Dorsalgia, unspecified; R70.0 Elevated erythrocyte sedimentation rate

== ENCOUNTER → 2020-03-09 | Outpatient (REF) | payer OTHER, MEDICARE ==
[~2020-03-09] MED LIST changes: -METF-791; +METF-838
== END ==
LOC: M SFHCWAGY 17:29
PROVIDERS: ATTEND Nurse Practitioner Women's Health
DX: Z12.4 Encounter for screening for malignant neoplasm of cervix (principal)

== ENCOUNTER → 2020-03-09 | Outpatient (CLI) | payer OTHER ==
--- NOTE | 2020-03-09 12:40 | REPMRS ---
Patient History The patient states she had a clinical breast exam in March 2020.Reductions of both breasts, 1986. Took estrogen for 2 years 3 months. 3D TOMOSYNTHESIS WAS PERFORMED. The [facility] lifetime risk for breast cancer is 9.1%. VOLMAGDIEL [facility] B. Digital Woman Screen Mammo: March 09, 2020 - Exam #: [id number] Bilateral CC and MLO view(s) were taken. Technologist: Lis Link, Technologist Prior study comparison: December 25, 2018, bilateral digital woman screen mammo performed at [facility]. November 30, 2017, digital woman screen mammo performed at [facility]. FINDINGS: There are scattered fibroglandular densities. There has been no change in the appearance of the mammogram from the prior studies. There is a mild amount of residual fibroglandular tissue which is fairly symmetric. There is no interval development of dominant mass, architectural distortion, or clustered microcalcification suggestive of malignancy. Assessment: BI-RADS/ACR category 1 mammogram. Negative Mammogram. Recommendation Routine screening mammogram in 1 year (for women over age 40). This mammogram was interpreted with the aid of an FDA-approved computer-aided dectection system. Electronically Signed By: Julian Borjas MD 03/09/20 [id number]
== END ==
LOC: M WHC 10:52
PROVIDERS: ATTEND Nurse Practitioner Women's Health
DX: Z01.411 Encounter for gynecological examination (general) (routine) with abnormal findings (principal); Z12.31 Encounter for screening mammogram for malignant neoplasm of breast; Z98.890 Other specified postprocedural states; Z92.23 Personal history of estrogen therapy
CPT/HCPCS: 77063; 77067; G0123; G0463

== ENCOUNTER → 2020-04-13 | Outpatient (REF) | payer OTHER, MEDICARE ==
[~2020-04-13] MED LIST changes: +AMLO1TAB24 PO; -AMLO5TAB6 PO; +CYMB60CA3 PO; +PREG200C
[2020-04-13 18:06] LABS: FREE T4 1.29 NG/DL (0.76-1.46); THYROID STIMULATING HORMONE 0.252 uIU/ML (0.358-3.740)
== END ==
LOC: M PLALAB 14:39
PROVIDERS: ATTEND Nurse Practitioner Family
DX: E03.9 Hypothyroidism, unspecified (principal)

== ENCOUNTER → 2020-04-19 | Outpatient (CLI) | payer OTHER, MEDICARE ==
[~2020-04-19] MED LIST changes: -AMLO1TAB24 PO; +AMLO5TAB6 PO; -CYMB60CA3 PO; -PREG200C
--- NOTE | 2020-04-19 11:13 | REPPI ---
Clinical: Nontraumatic right hip pain. Technique: Frontal view of the pelvis with neutral and frog lateral views of the right hip. Findings: Osseous structures and joint spaces are intact and normal. Hip joints appear symmetric on frontal pelvic radiograph. No acute fracture dislocation. No evidence for healed injury. No significant degenerative or congenital abnormalities are appreciated. Surrounding soft tissues are unremarkable. Impression: Normal age-appropriate pelvis and right hip series. Electronically Signed by Regino Lovell MD 04/19/2020 11:04 A
== END ==
LOC: M PLAIMG 10:09
PROVIDERS: ATTEND Nurse Practitioner Family
DX: M25.551 Pain in right hip (principal)

== ENCOUNTER 2020-07-28 18:19 | Emergency (ER) | payer MEDICARE, OTHER ==
[~2020-07-28] VITALS: Ht 154.9 cm; Wt 92.7 kg
[~2020-07-28 18:19] MED LIST changes: +AMLO1TAB24 PO; -AMLO5TAB6 PO
[2020-07-28] MEDS ORDERED: CYMB60CA3 PO (18:31)
[2020-07-28] MEDS ORDERED: PREG200C (18:31)
[2020-07-28] MEDS ORDERED: diazePAM 10 MG TAB PO ONE (19:15)
[2020-07-28] MEDS ORDERED: KETOROLAC 60MG 2ML VIAL IM ONE (19:45)
--- NOTE | 2020-07-28 19:49 | REP ---
INDICATION: fall onto coccyx and low back x 2, pt tender. COMPARISON: 12/27/2005 FINDINGS: Five views of the lumbosacral spine show no acute fracture, dislocation or subluxation. The intervertebral disc spaces are narrowed posteriorly throughout. There is anterior lipping at every level. Degenerative facet joint changes are seen at every level bilaterally particularly L4-5 and L5-S1. Prominent marginal osteophytosis is seen bilaterally at L4-5. This has developed since the last exam. Small marginal osteophytes are seen bilaterally at all other levels. These too have developed since the last exam. There is a grade 1 L4 upon L5 spondylolisthesis. The pedicles are intact bilaterally and there is no destructive osseous lesion. IMPRESSION: 1. Chronic changes as described above. 2. There is a grade 1 L4 upon L5 spondylolisthesis which has developed since the last examination and likely secondary to degenerative facet joint changes. <Electronically signed by Enzo Forte > 07/28/201944
[2020-07-28 20:25] VITALS: BP 127/60
== END 2020-07-28 20:34 | disposition home or self-care (01) ==
LOC: M ED 18:19
DX: S39.92XA Unspecified injury of lower back, initial encounter (principal); W11.XXXA Fall on and from ladder, initial encounter; Y92.9 Unspecified place or not applicable; Y93.89 Activity, other specified; M43.16 Spondylolisthesis, lumbar region; M51.36 Other intervertebral disc degeneration, lumbar region; E11.9 Type 2 diabetes mellitus without complications; I10 Essential (primary) hypertension; J45.909 Unspecified asthma, uncomplicated; D64.9 Anemia, unspecified; K74.60 Unspecified cirrhosis of liver; Z98.84 Bariatric surgery status; Z88.8 Allergy status to other drugs, medicaments and biological substances; Z79.899 Other long term (current) drug therapy
CPT/HCPCS: 72110; 99283; J1885

== ENCOUNTER → 2020-09-15 | Outpatient (CLI) | payer OTHER, MEDICARE ==
[~2020-09-15] MED LIST changes: +CYAN500T14 PO; -CYAN500T8 PO; +CYMB60CA3 PO; -MONT10TA4 PO; +MONT5TAB2 PO; +PREG200C
[2020-09-15 11:54] LABS: HEMOGLOBIN A1c 5.5 %
[2020-09-15 11:57] LABS: ALBUMIN 3.3 GM/DL (3.2-5.2); ALT/SGPT 23 U/L (12-78); BILIRUBIN,TOTAL 0.3 MG/DL (0.2-1.0); BLOOD UREA NITROGEN 10 MG/DL (7-18); CALCIUM LEVEL 9.1 MG/DL (8.5-10.1); CARBON DIOXIDE LEVEL 31 MEQ/L (21-32); CHLORIDE LEVEL 106 MEQ/L (98-107); CREATININE FOR GFR 0.97 MG/DL (0.55-1.30); FREE T4 1.06 NG/DL (0.76-1.46); GLOMERULAR FILTRATION RATE > 60.0 (>51); GLUCOSE, FASTING 78 MG/DL (70-100); POTASSIUM SERUM 4.4 MEQ/L (3.5-5.1); SODIUM LEVEL 140 MEQ/L (136-145)
== END ==
LOC: M PLALAB 09:46
PROVIDERS: ATTEND Nurse Practitioner Family
DX: E03.9 Hypothyroidism, unspecified (principal); I10 Essential (primary) hypertension; E55.9 Vitamin D deficiency, unspecified; R73.03 Prediabetes; Z79.899 Other long term (current) drug therapy

== ENCOUNTER → 2020-11-29 | Outpatient (CLI) | payer OTHER, MEDICARE ==
[~2020-11-29] MED LIST changes: +LISI10TA22 PO; -LISI10TA4 PO; +MONT10TA10 PO; -MONT5TAB2 PO
== END ==
LOC: M PLALAB 14:38
PROVIDERS: ATTEND Neurological Surgery
DX: M43.16 Spondylolisthesis, lumbar region (principal)

== ENCOUNTER → 2020-11-29 | Outpatient (REF) | payer OTHER, MEDICARE ==
[2020-11-29 16:11] LABS: BLOOD UREA NITROGEN 14 MG/DL (7-18); CALCIUM LEVEL 8.9 MG/DL (8.5-10.1); CARBON DIOXIDE LEVEL 28 MEQ/L (21-32); CHLORIDE LEVEL 107 MEQ/L (98-107); CREATININE FOR GFR 0.87 MG/DL (0.55-1.30); FREE T4 1.01 NG/DL (0.76-1.46); GLOMERULAR FILTRATION RATE > 60.0 (>51); GLUCOSE, FASTING 64 MG/DL (70-100); POTASSIUM SERUM 4.3 MEQ/L (3.5-5.1); SODIUM LEVEL 140 MEQ/L (136-145)
== END ==
LOC: M PLALAB 14:36
PROVIDERS: ATTEND Nurse Practitioner Family
DX: E03.9 Hypothyroidism, unspecified (principal); I10 Essential (primary) hypertension; M43.16 Spondylolisthesis, lumbar region; Z79.899 Other long term (current) drug therapy
CPT/HCPCS: 36415; 80048; 84439; 84443; G0480

== ENCOUNTER → 2020-12-29 | Outpatient (CLI) | payer OTHER, MEDICARE ==
[2021-01-06 02:06] LABS: COTININE 303.3 ng/mL (.); NICOTINE 1.7 ng/mL (.)
== END ==
LOC: M PLALAB 10:12
PROVIDERS: ATTEND Neurological Surgery
DX: M43.16 Spondylolisthesis, lumbar region (principal); F31.81 Bipolar II disorder; Z79.899 Other long term (current) drug therapy
CPT/HCPCS: 36415; 90834; G0480

== ENCOUNTER → 2021-03-11 | Outpatient (REF) | payer OTHER, MEDICARE ==
[2021-03-11 15:47] LABS: ALBUMIN 3.5 GM/DL (3.2-5.2); ALT/SGPT 20 U/L (12-78); BILIRUBIN,TOTAL 0.3 MG/DL (0.2-1.0); BLOOD UREA NITROGEN 10 MG/DL (7-18); CALCIUM LEVEL 8.8 MG/DL (8.5-10.1); CARBON DIOXIDE LEVEL 29 MEQ/L (21-32); CHLORIDE LEVEL 106 MEQ/L (98-107); CHOLESTEROL LEVEL 177 MG/DL (<200); CHOLESTEROL RISK RATIO 3.765 (<5); CREATININE FOR GFR 0.83 MG/DL (0.55-1.30); FREE T4 1.08 NG/DL (0.76-1.46); GLOMERULAR FILTRATION RATE > 60.0 (>51); GLUCOSE, FASTING 80 MG/DL (70-100); HDL CHOLESTEROL 47 MG/DL (>40); LDL CHOLESTEROL 105 MG/DL (<100); NON-HDL-C 130 MG/DL; POTASSIUM SERUM 4.2 MEQ/L (3.5-5.1); SODIUM LEVEL 139 MEQ/L (136-145); TOTAL PROTEIN 7.1 GM/DL (6.4-8.2); TRIGLYCERIDES LEVEL 124 MG/DL (<150)
[2021-03-11 15:48] LABS: TOTAL 25(OH) VITAMIN D 42.9 NG/ML (30.0-100.0)
[2021-03-11 15:49] LABS: CREATININE, URINE 15.7 MG/DL; MALB URINE SIEMENS < 5.0 MG/L; MAU/CREAT RATIO 31.8 MCG/MG (0.0-30.0)
[2021-03-11 17:42] LABS: HEMOGLOBIN A1c 5.3 %
== END ==
LOC: M PLALAB 12:20
PROVIDERS: ATTEND Nurse Practitioner Family
DX: I10 Essential (primary) hypertension (principal); E03.9 Hypothyroidism, unspecified; E88.81 Metabolic syndrome and other insulin resistance; E55.9 Vitamin D deficiency, unspecified; Z79.899 Other long term (current) drug therapy

== ENCOUNTER → 2021-03-16 | Outpatient (CLI) | payer OTHER | LOC: M LABSMTC 11:04 | PROVIDERS: ATTEND Registered Nurse | DX: Z11.52 Encounter for screening for COVID-19 (principal) ==

== ENCOUNTER → 2021-03-29 | Outpatient (CLI) | payer OTHER, MEDICARE ==
[~2021-03-29] MED LIST changes: +OMEP40CA4 PO; -OMEP40CA97 PO
--- NOTE | 2021-03-29 16:18 | REPMRS ---
Patient History The patient states she had a clinical breast exam in March 2021. Patient is postmenopausal. Family history of ovarian cancer in sister, ovarian cancer at age 40 in sister, breast cancer at age 50 or over in mother. Reductions of both breasts, 1985. Took estrogen for 2 years 3 months. 6 lb unintentional weight gain. Pfizer vaccine 02/27/21 left arm. 03/20/21 left arm. Patient states no breast complaints today. Patient has signed MRS History Sheet. Digital Woman Screen Mammo: March 29, 2021 - Exam #: [id number] Bilateral CC and MLO view(s) were taken. Technologist: Nayla Bautista, Prior study comparison: March 09, 2020, bilateral digital woman screen mammo performed at [facility]. December 25, 2018, bilateral digital woman screen mammo performed at [facility]. November 30, 2017, digital woman screen mammo performed at [facility]. FINDINGS: There are scattered fibroglandular densities. The [employer] volumetric breast density category is:B. There has been no change in the appearance of the mammogram from the prior studies. There is a mild amount of scattered fibroglandular density which is fairly symmetric. There is no interval development of dominant mass, architectural distortion, or grouped microcalcification suggestive of malignancy. 3-D tomosynthesis shows no additional findings. Assessment: BI-RADS/ACR category 1 mammogram. Negative Mammogram. Recommendation Routine screening mammogram of both breasts in 1 year (for women over age 40). This patient's [facility] Lifetime Breast Cancer Risk is estimated at 18.4 %. This mammogram was interpreted with the aid of an FDA-approved computer-aided dectection system. Electronically Signed By: Cortez Lopez MD 03/29/21 [id number]
== END ==
LOC: M WHC 14:14
PROVIDERS: ATTEND Nurse Practitioner Women's Health
DX: Z12.31 Encounter for screening mammogram for malignant neoplasm of breast (principal); Z12.4 Encounter for screening for malignant neoplasm of cervix; Z78.0 Asymptomatic menopausal state; Z80.41 Family history of malignant neoplasm of ovary; Z80.3 Family history of malignant neoplasm of breast; Z92.23 Personal history of estrogen therapy; R87.612 Low grade squamous intraepithelial lesion on cytologic smear of cervix (LGSIL)
CPT/HCPCS: 77063; 77067; 87624; G0101; G0123

== ENCOUNTER → 2021-03-29 | Outpatient (REF) | payer OTHER, MEDICARE | LOC: M SFHCWAGY 10:03 | PROVIDERS: ATTEND Nurse Practitioner Women's Health | DX: Z12.4 Encounter for screening for malignant neoplasm of cervix (principal); R87.612 Low grade squamous intraepithelial lesion on cytologic smear of cervix (LGSIL) ==

== ENCOUNTER → 2021-04-06 | Outpatient (CLI) | payer OTHER ==
[~2021-04-06] MED LIST changes: -CYMB60CA3 PO; +CYMB60CA4 PO; -MONT10TA10 PO; +MONT10TA97 PO; +TIZA10TA PO; -TIZA4TAB4 PO
== END ==
LOC: M PLALAB 15:27
PROVIDERS: ATTEND Nurse Practitioner Women's Health
DX: Z12.39 Encounter for other screening for malignant neoplasm of breast (principal); Z80.3 Family history of malignant neoplasm of breast; Z80.41 Family history of malignant neoplasm of ovary

== ENCOUNTER → 2021-06-10 | Outpatient (CLI) | payer OTHER ==
[~2021-06-10] MED LIST changes: +CYMB60CA3 PO; -CYMB60CA4 PO; +MONT10TA10 PO; -MONT10TA97 PO; -TIZA10TA PO; +TIZA4TAB4 PO
--- NOTE | 2021-06-10 18:28 | REPVR ---
PROCEDURE INFORMATION: Exam: MR Head Without Contrast Exam date and time: 06/10/2021 9:13 AM Age: 56 years old Clinical indication: Pain; Headache; Migraine; Aura effect not specified; Additional info: Migrain / cervicalgia TECHNIQUE: Imaging protocol: MR of the head without contrast. COMPARISON: CT Head without contrast 02/01/2019 11:23 AM FINDINGS: Brain: The brain demonstrates mild volume loss. The T2 weighted imaging demonstrates scattered foci of increased signal intensity in the deep and subcortical white matter most likely representing mild chronic small vessel ischemic change. No acute infarct identified on the diffusion-weighted imaging. Cerebral ventricles: The ventricles are mildly enlarged in keeping with volume loss. Bones/joints: Unremarkable. Paranasal sinuses: Retention cyst or polyp in the left maxillary sinus. Mastoid air cells: Normal as visualized. No mastoid effusion. Orbital cavity: Unremarkable. Soft tissues: Unremarkable. IMPRESSION: No acute intracranial abnormality seen. Electronically signed by: Ceci Peterson On 06/10/2021 18:28:33 PM
--- NOTE | 2021-06-10 19:10 | REPVR ---
PROCEDURE INFORMATION: Exam: MR Cervical Spine Without Contrast Exam date and time: 06/10/2021 9:13 AM Age: 56 years old Clinical indication: Neck pain; Additional info: Migrain / cervicalgia TECHNIQUE: Imaging protocol: Multiplanar magnetic resonance images of the cervical spine without contrast. COMPARISON: CT Spine,cervical w/o contrast 02/01/2019 11:23 AM FINDINGS: Vertebrae: Anatomic alignment. No acute fracture seen. Spinal cord: Normal signal. No cord compression. Mild disc height loss and spondylosis at C6-C7. C2-C3: No stenoses. C3-C4: No stenoses. C4-C5: No stenoses. C5-C6: 2 mm left paracentral disc protrusion does not contribute to central spinal canal stenosis. Limited assessment of the neural foramina due to motion artifacts. No obvious, high-grade foraminal narrowing. C6-C7: A cranially migrating left paracentral disc extrusion measures 3 mm in AP dimension and extends 3 mm above the disc space. Central spinal canal stenosis is mild. Disc material may be in the region of the left C7 nerve rootlets, this is difficult to assess on the axial images due to motion artifacts. Uncovertebral and facet arthropathy probably causing moderate bilateral neural foraminal stenoses. C7-T1: No significant disc disease. No significant spinal stenosis. Soft tissues: Unremarkable. Vertebral arteries: Poorly assessed due to motion. IMPRESSION: 1. Images are motion degraded. 2. Mild disc height loss and spondylosis at C6-C7. 3. A left paracentral disc extrusion at C6-C7 causes mild central spinal canal stenosis. Disc material may be in the region of the left C7 nerve rootlets; this is difficult to assess on the axial images due to motion artifacts. Neural foraminal stenoses are probably moderate. Electronically signed by: Ceci Peterson On 06/10/2021 19:09:52 PM
== END ==
LOC: M PLAIMG 08:10
PROVIDERS: ATTEND Physician Assistant Medical
DX: M54.2 Cervicalgia (principal); M47.9 Spondylosis, unspecified; R51.9 Headache, unspecified; G43.109 Migraine with aura, not intractable, without status migrainosus; H53.8 Other visual disturbances; M50.20 Other cervical disc displacement, unspecified cervical region; M50.30 Other cervical disc degeneration, unspecified cervical region

== ENCOUNTER → 2021-06-15 | Outpatient (CLI) | payer OTHER ==
--- NOTE | 2021-06-16 17:58 | REP ---
INDICATION: RT KNEE PAIN. COMPARISON: None. TECHNIQUE: AP, lateral, and sunrise views of the right and left knee. FINDINGS: Moderate tricompartmental osteoarthritic degenerative changes include periarticular sclerosis, medial and patellofemoral joint space narrowing, marginal early spurring/osteophyte formation. Findings are slightly more pronounced to the right knee. There is no evidence for acute fracture or dislocation. No obvious effusion. IMPRESSION: Moderate tricompartmental osteoarthritic degenerative changes (right greater than left). <Electronically signed by Regino Lovell > 06/16/21 [id number]
== END ==
LOC: M SOG 15:04
PROVIDERS: ATTEND Orthopaedic Surgery
DX: M25.561 Pain in right knee (principal)

== ENCOUNTER → 2021-06-21 | Outpatient (CLI) | payer OTHER | LOC: M LAB 13:40 | PROVIDERS: ATTEND Psychiatry & Neurology Psychiatry | DX: F31.81 Bipolar II disorder (principal) ==

== ENCOUNTER → 2021-06-28 | Outpatient (CLI) | payer OTHER ==
[2021-06-28 13:20] LABS: HEMATOCRIT 40.1 % (36.0-47.0); HEMOGLOBIN 12.9 g/dl (12.0-15.5); MEAN CORPUSCULAR HEMOGLOBIN 31.2 pg (27.0-33.0); MEAN CORPUSCULAR HGB CONC 32.2 g/dl (32.0-36.5); MEAN CORPUSCULAR VOLUME 96.9 fl (80.0-96.0); PLATELET COUNT, AUTOMATED 340 10^3/uL (150-450); RED BLOOD COUNT 4.14 10^6/uL (4.00-5.40); WHITE BLOOD COUNT 10.6 10^3/uL (4.0-10.0)
[2021-06-28 14:03] LABS: ALBUMIN 3.2 GM/DL (3.2-5.2); ALT/SGPT 20 U/L (12-78); BILIRUBIN,TOTAL 0.3 MG/DL (0.2-1.0); BLOOD UREA NITROGEN 10 MG/DL (7-18); CALCIUM LEVEL 8.9 MG/DL (8.5-10.1); CARBON DIOXIDE LEVEL 28 MEQ/L (21-32); CHLORIDE LEVEL 107 MEQ/L (98-107); CREATININE FOR GFR 0.98 MG/DL (0.55-1.30); FERRITIN 142 NG/ML (8-252); FOLATE > 24.0 NG/ML; GLOMERULAR FILTRATION RATE > 60.0 (>51); GLUCOSE, FASTING 80 MG/DL (70-100); POTASSIUM SERUM 4.3 MEQ/L (3.5-5.1); SODIUM LEVEL 141 MEQ/L (136-145); TOTAL 25(OH) VITAMIN D 45.1 NG/ML (30.0-100.0); VITAMIN B12 LEVEL 1082 PG/ML
== END ==
LOC: M PLALAB 11:00
PROVIDERS: ATTEND Nurse Practitioner Family
DX: E03.9 Hypothyroidism, unspecified (principal); I10 Essential (primary) hypertension; D50.9 Iron deficiency anemia, unspecified; K91.2 Postsurgical malabsorption, not elsewhere classified; E88.81 Metabolic syndrome and other insulin resistance; F17.210 Nicotine dependence, cigarettes, uncomplicated
CPT/HCPCS: 36415; 80053; 82306; 82607; 82728; 82746; 84439; 84443; 85027; 99406; G0463

== ENCOUNTER → 2021-07-25 | Outpatient (CLI) | payer OTHER ==
[~2021-07-25] MED LIST changes: -CYMB60CA3 PO; +CYMB60CA4 PO
--- NOTE | 2021-07-25 15:44 | REPVR ---
PROCEDURE INFORMATION: Exam: CT Maxillofacial Without Contrast, Sinus Exam date and time: 07/25/2021 3:35 PM Age: 56 years old Clinical indication: Sinusitis; Chronic TECHNIQUE: Imaging protocol: CT Maxillofacial without contrast. Focus on the sinuses. Radiation optimization: All CT scans at this facility use at least one of these dose optimization techniques: automated exposure control; mA and/or kV adjustment per patient size (includes targeted exams where dose is matched to clinical indication); or iterative reconstruction. COMPARISON: CT Maxilofacial w/out contrast 12/07/2016 8:58 AM FINDINGS: Frontal sinuses: The frontal sinus is aplastic. Ethmoid air cells: Normal. No air-fluid levels. Sphenoid sinuses: Normal. No air-fluid levels. Maxillary sinuses: Nodular mucosal thickening is noted along the floor of the left maxillary sinus. The right maxillary sinus is clear. There are no air-fluid levels. The ostiomeatal units are patent. Nasal cavity/Septum: Unremarkable. Orbital cavity: The orbital structures are unremarkable. Bones/joints: Unremarkable. Soft tissues: Unremarkable. IMPRESSION: 1. No acute abnormality. 2. Chronic findings as discussed above. Electronically signed by: Inder Fernández On 07/25/2021 15:44:16 PM
== END ==
LOC: M RAD 14:54
PROVIDERS: ATTEND Otolaryngology
DX: J32.0 Chronic maxillary sinusitis (principal)

== ENCOUNTER 2021-08-19 09:59 | Outpatient (RCR) | payer OTHER, SELFPAY ==
[~2021-08-19 09:59] MED LIST changes: -MONT10TA10 PO; +MONT10TA97 PO; +TIZA10TA PO; -TIZA4TAB4 PO
== END 2021-08-30 ==
LOC: M PT 09:59
PROVIDERS: ATTEND Neurological Surgery
DX: M54.42 Lumbago with sciatica, left side (principal); G89.29 Other chronic pain; Z98.1 Arthrodesis status

== ENCOUNTER → 2021-09-29 | Outpatient (CLI) | payer OTHER ==
[~2021-09-29] MED LIST changes: +MONT10TA10 PO; -MONT10TA97 PO; -TIZA10TA PO; +TIZA4TAB4 PO
--- NOTE | 2021-09-29 15:08 | REP ---
INDICATION: LOW BACK PAIN. COMPARISON: None. TECHNIQUE: Single AP view of the pelvis FINDINGS: There is no evidence for acute or healed injury. Symmetric age-related degenerative changes to the bilateral hips includes subtle increased sclerosis to the acetabula with very minimal joint space narrowing and extremely subtle marginal spurring. IMPRESSION: Mild symmetric age-related changes to the hips. <Electronically signed by Regino Lovell > 09/29/21 [id number]
--- NOTE | 2021-09-29 15:09 | REP ---
INDICATION: LOW BACK PAIN. COMPARISON: 07/28/2020 a pre operative exam TECHNIQUE: Four views FINDINGS: Since the last examination bilateral transpedicular screws have been placed at L4-5. There is bone graft material seen at L4-5. Vertebral body height and alignment is within normal limits. There is disc space narrowing at every level status quo. There is anterior lipping status quo. There are degenerative facet joint changes status quo. IMPRESSION: Postoperative and chronic changes as described above. <Electronically signed by Enzo Forte > 09/29/21 [id number]
== END ==
LOC: M SOG 14:38
PROVIDERS: ATTEND Orthopaedic Surgery
DX: M48.061 Spinal stenosis, lumbar region without neurogenic claudication (principal); M16.0 Bilateral primary osteoarthritis of hip; Z98.1 Arthrodesis status

== ENCOUNTER → 2022-04-04 | Outpatient (CLI) | payer MEDICARE, OTHER ==
[~2022-04-04] MED LIST changes: -MONT10TA10 PO; +MONT10TA97 PO; +TIZA10TA PO; -TIZA4TAB4 PO
[2022-04-04 13:04] LABS: BASO # 0.1 10^3/uL (0.0-0.2); BASO % 0.6 % (0.0-1.0); EOS # 0.1 10^3/uL (0.0-0.5); EOS % 1.2 % (0.0-3.0); HEMATOCRIT 42.3 % (36.0-47.0); LYMPH # 3.7 10^3/uL (1.5-5.0); LYMPH % 32.6 % (24.0-44.0); MEAN CORPUSCULAR HEMOGLOBIN 31.7 pg (27.0-33.0); MEAN CORPUSCULAR HGB CONC 33.1 g/dl (32.0-36.5); MEAN CORPUSCULAR VOLUME 95.7 fl (80.0-96.0); MONO # 0.8 10^3/uL (0.0-0.8); MONO % 7.2 % (2.0-8.0); NEUTROPHILS # 6.5 10^3/uL (1.5-8.5); PLATELET COUNT, AUTOMATED 389 10^3/uL (150-450); RED BLOOD COUNT 4.42 10^6/uL (4.00-5.40); WHITE BLOOD COUNT 11.2 10^3/uL (4.0-10.0)
[2022-04-04 13:22] LABS: HEMOGLOBIN A1c 5.5 %
[2022-04-04 13:45] LABS: ALBUMIN 3.8 GM/DL (3.2-5.2); BILIRUBIN,TOTAL 0.4 MG/DL (0.2-1.0); CALCIUM LEVEL 9.6 MG/DL (8.5-10.1); CHOLESTEROL RISK RATIO 4.235 (<5); CREATININE FOR GFR 1.05 MG/DL (0.55-1.30); FREE T4 0.42 NG/DL (0.76-1.46); GLOMERULAR FILTRATION RATE 57.9 (>51); PERCENT SATURATION 13.8 % (13.2-45.0); POTASSIUM SERUM 4.6 MEQ/L (3.5-5.1); THYROID STIMULATING HORMONE 73.9 uIU/ML (0.358-3.740); TOTAL PROTEIN 7.8 GM/DL (6.4-8.2)
[2022-04-04 13:50] LABS: TOTAL 25(OH) VITAMIN D 45.3 NG/ML (30.0-100.0)
== END ==
LOC: M PLALAB 10:04
PROVIDERS: ATTEND Nurse Practitioner Family
DX: E03.9 Hypothyroidism, unspecified (principal); I10 Essential (primary) hypertension; D50.9 Iron deficiency anemia, unspecified; E55.9 Vitamin D deficiency, unspecified; Z98.84 Bariatric surgery status; Z79.899 Other long term (current) drug therapy
CPT/HCPCS: 36415; 80053; 80061; 82306; 82607; 83036; 83550; 84439; 84443; 85025; G0463

== ENCOUNTER → 2022-05-25 | Outpatient (CLI) | payer OTHER, MEDICARE ==
[2022-05-25 16:18] LABS: FREE T4 1.05 NG/DL (0.76-1.46); THYROID STIMULATING HORMONE 1.01 uIU/ML (0.358-3.740)
== END ==
LOC: M PLALAB 12:33
PROVIDERS: ATTEND Nurse Practitioner Family
DX: E03.9 Hypothyroidism, unspecified (principal); D50.9 Iron deficiency anemia, unspecified

== ENCOUNTER → 2022-06-20 | Outpatient (CLI) | payer MEDICARE, OTHER | LOC: M RAD 12:48 | PROVIDERS: ATTEND Nurse Practitioner Family | DX: M54.6 Pain in thoracic spine (principal) ==

== ENCOUNTER → 2022-07-05 | Outpatient (REF) | payer OTHER ==
[~2022-07-05] MED LIST changes: +CYCL5TAB PO; +MEDR4PAK PO
== END ==
LOC: M SFHCPLAZ 16:58
PROVIDERS: ATTEND Physician Assistant
DX: R09.89 Other specified symptoms and signs involving the circulatory and respiratory systems (principal)

== ENCOUNTER 2022-07-10 16:16 | Emergency (ER) | payer OTHER ==
[~2022-07-10] VITALS: Ht 154.9 cm; Wt 94.5 kg
[~2022-07-10 16:16] MED LIST changes: -CYCL5TAB PO; -MEDR4PAK PO
[2022-07-10 16:17] VITALS: BP 166/88
[2022-07-10 17:34] LABS: BASO % 0.5 % (0.0-1.0); EOS # 0.1 10^3/uL (0.0-0.5); EOS % 0.9 % (0.0-3.0); HEMATOCRIT 37.4 % (36.0-47.0); HEMOGLOBIN 12.4 g/dl (12.0-15.5); LYMPH # 3.5 10^3/uL (1.5-5.0); MEAN CORPUSCULAR HEMOGLOBIN 32.1 pg (27.0-33.0); MEAN CORPUSCULAR HGB CONC 33.2 g/dl (32.0-36.5); MEAN CORPUSCULAR VOLUME 96.9 fl (80.0-96.0); MONO # 0.8 10^3/uL (0.0-0.8); NEUTROPHILS # 4.5 10^3/uL (1.5-8.5); NEUTROPHILS % 50.3 % (36.0-66.0); PLATELET COUNT, AUTOMATED 346 10^3/uL (150-450); RED BLOOD COUNT 3.86 10^6/uL (4.00-5.40); WHITE BLOOD COUNT 8.9 10^3/uL (4.0-10.0)
[2022-07-10] MEDS ORDERED: NS 1,000 ML IV ONE (17:55)
[2022-07-10] MEDS ORDERED: MORPHINE 4 MG/ML 1ML VIAL/SYRINGE IV ONE (17:55)
[2022-07-10] MEDS ORDERED: ISOVUE-370 76% 100ML VIAL As Ordered ONE (18:02)
[2022-07-10 18:16] LABS: ALBUMIN 3.3 GM/DL (3.2-5.2); ALT/SGPT 24 U/L (12-78); BILIRUBIN,DIRECT < 0.1 MG/DL (0.0-0.2); BILIRUBIN,TOTAL 0.3 MG/DL (0.2-1.0); BLOOD UREA NITROGEN 8 MG/DL (7-18); CALCIUM LEVEL 8.7 MG/DL (8.5-10.1); CARBON DIOXIDE LEVEL 23 MEQ/L (21-32); CHLORIDE LEVEL 110 MEQ/L (98-107); CREATININE FOR GFR 0.88 MG/DL (0.55-1.30); GLOMERULAR FILTRATION RATE > 60.0 (>51); GLUCOSE, FASTING 70 MG/DL (70-100); LIPASE 184 U/L (73-393); POTASSIUM SERUM 4.9 MEQ/L (3.5-5.1); SODIUM LEVEL 138 MEQ/L (136-145); TOTAL PROTEIN 7.2 GM/DL (6.4-8.2)
[2022-07-10] MEDS ORDERED: KETOROLAC 30 MG/ML 1ML VIAL IV ONE (18:25)
[2022-07-10] MEDS ORDERED: diazePAM 5MG TABLET PO ONE (20:25)
[2022-07-10] MEDS ORDERED: LIDOCAINE 5% (LIDODERM) PATCH TD ONE (20:25)
[2022-07-10] MEDS ORDERED: MEDR4PAK PO (20:36)
[2022-07-10] MEDS ORDERED: CYCL5TAB PO (20:36)
[2022-07-11] MEDS ORDERED: **NOTE PATIENT COMMENT** MISC XX SCH (09:00)
== END 2022-07-10 20:54 | disposition home or self-care (01) ==
LOC: M ED 16:16
DX: M48.061 Spinal stenosis, lumbar region without neurogenic claudication (principal); M54.50 Low back pain, unspecified; R10.9 Unspecified abdominal pain; F31.9 Bipolar disorder, unspecified; K58.9 Irritable bowel syndrome, unspecified; D64.9 Anemia, unspecified; Z88.6 Allergy status to analgesic agent; Z88.1 Allergy status to other antibiotic agents; Z88.8 Allergy status to other drugs, medicaments and biological substances; Z98.84 Bariatric surgery status; Z79.51 Long term (current) use of inhaled steroids; Z79.899 Other long term (current) drug therapy
CPT/HCPCS: 74177; 80048; 80076; 81002; 83690; 85025; 96361; 96374; 96375; 99283; J1885; J2270; Q9967

== ENCOUNTER → 2022-09-04 | Outpatient (CLI) | payer OTHER ==
[~2022-09-04] MED LIST changes: +CYCL5TAB PO; +ERGO500029 PO; +MEDR4PAK PO
== END ==
LOC: M WHC 11:19
PROVIDERS: ATTEND Nurse Practitioner Family
DX: Z12.31 Encounter for screening mammogram for malignant neoplasm of breast (principal)

== ENCOUNTER → 2022-09-04 | Outpatient (REF) | payer OTHER ==
[~2022-09-04] MED LIST changes: -ERGO500029 PO
== END ==
LOC: M PLALAB 15:01
PROVIDERS: ATTEND Nurse Practitioner Family
DX: Z12.4 Encounter for screening for malignant neoplasm of cervix (principal)
CPT/HCPCS: 87624; G0123

== ENCOUNTER → 2022-09-29 | Outpatient (REF) | payer OTHER ==
[~2022-09-29] MED LIST changes: +ERGO500029 PO
== END ==
LOC: M LAB REF 15:24
PROVIDERS: ATTEND Nurse Practitioner Family
DX: R19.4 Change in bowel habit (principal); Z12.11 Encounter for screening for malignant neoplasm of colon

== ENCOUNTER → 2022-09-29 | Outpatient (CLI) | payer OTHER ==
[2022-09-29 17:42] LABS: BASO % 0.4 % (0.0-1.0); EOS # 0.1 10^3/uL (0.0-0.5); EOS % 0.7 % (0.0-3.0); HEMATOCRIT 38.4 % (36.0-47.0); HEMOGLOBIN 12.4 g/dl (12.0-15.5); LYMPH # 3.2 10^3/uL (1.5-5.0); LYMPH % 32.5 % (24.0-44.0); MEAN CORPUSCULAR HEMOGLOBIN 32.5 pg (27.0-33.0); MEAN CORPUSCULAR HGB CONC 32.3 g/dl (32.0-36.5); MEAN CORPUSCULAR VOLUME 100.5 fl (80.0-96.0); MONO # 0.8 10^3/uL (0.0-0.8); MONO % 8.4 % (2.0-8.0); NEUTROPHILS # 5.7 10^3/uL (1.5-8.5); NEUTROPHILS % 57.6 % (36.0-66.0); PLATELET COUNT, AUTOMATED 350 10^3/uL (150-450); RED BLOOD COUNT 3.82 10^6/uL (4.00-5.40); WHITE BLOOD COUNT 9.9 10^3/uL (4.0-10.0)
[2022-09-29 18:18] LABS: PERCENT SATURATION 18.9 % (13.2-45.0)
[2022-09-29 18:19] LABS: ALBUMIN 3.5 G/DL (3.2-5.2); BILIRUBIN,TOTAL 0.3 MG/DL (0.3-1.2); CALCIUM LEVEL 9.5 MG/DL (8.5-10.1); CHOLESTEROL RISK RATIO 3.33 (<5); CREATININE FOR GFR 1.04 MG/DL (0.55-1.30); GLOMERULAR FILTRATION RATE 58.6 (>51); LDL CHOLESTEROL 93.2 MG/DL (<100); POTASSIUM SERUM 5.2 MMOL/L (3.5-5.1); THYROID STIMULATING HORMONE 2.02 uIU/ML (0.55-4.78); TOTAL 25(OH) VITAMIN D 44.7 NG/ML (20.0-100.0)
[2022-09-29 18:20] LABS: FREE T4 1.22 NG/DL (0.89-1.76)
== END ==
LOC: M PLALAB 14:54
PROVIDERS: ATTEND Nurse Practitioner Family
DX: E78.5 Hyperlipidemia, unspecified (principal); E88.81 Metabolic syndrome and other insulin resistance; E03.9 Hypothyroidism, unspecified; K91.2 Postsurgical malabsorption, not elsewhere classified; I10 Essential (primary) hypertension

== ENCOUNTER → 2022-10-03 | Outpatient (CLI) | payer OTHER | LOC: M LABSMTC 09:56 | PROVIDERS: ATTEND Anesthesiology | DX: Z01.812 Encounter for preprocedural laboratory examination (principal); Z11.52 Encounter for screening for COVID-19 ==

== ENCOUNTER 2022-10-06 10:40 | Day surgery (SDC) | payer OTHER ==
[~2022-10-06] VITALS: Ht 154.9 cm; Wt 91.5 kg
[~2022-10-06 10:40] MED LIST changes: +NS 1,000 ML IV ONE
[2022-10-06 13:55] VITALS: BP 170/84
== END 2022-10-06 14:09 | disposition home or self-care (01) ==
LOC: M OPP 10:40
PROVIDERS: ATTEND Internal Medicine Gastroenterology
DX: K64.8 Other hemorrhoids (principal); D12.6 Benign neoplasm of colon, unspecified; Z98.84 Bariatric surgery status; E03.9 Hypothyroidism, unspecified; K58.9 Irritable bowel syndrome, unspecified; K76.0 Fatty (change of) liver, not elsewhere classified; D50.9 Iron deficiency anemia, unspecified; M19.90 Unspecified osteoarthritis, unspecified site; M79.7 Fibromyalgia; F41.9 Anxiety disorder, unspecified; F31.9 Bipolar disorder, unspecified; G43.909 Migraine, unspecified, not intractable, without status migrainosus; J45.909 Unspecified asthma, uncomplicated; F17.290 Nicotine dependence, other tobacco product, uncomplicated; Z88.8 Allergy status to other drugs, medicaments and biological substances; Z79.890 Hormone replacement therapy; Z79.899 Other long term (current) drug therapy; Z80.3 Family history of malignant neoplasm of breast; Z80.41 Family history of malignant neoplasm of ovary

== ENCOUNTER → 2022-11-17 | Outpatient (REF) | payer MEDICARE ==
[~2022-11-17] MED LIST changes: -NS 1,000 ML IV ONE
== END ==
LOC: M LAB REF 16:26
PROVIDERS: ATTEND Nurse Practitioner Family
DX: R19.7 Diarrhea, unspecified (principal)

== ENCOUNTER → 2022-12-12 | Outpatient (REF) | payer MEDICARE, OTHER | LOC: M LAB REF 13:19 | PROVIDERS: ATTEND Nurse Practitioner Family | DX: R19.7 Diarrhea, unspecified (principal) ==

== ENCOUNTER → 2023-01-26 | Outpatient (REF) | payer MEDICARE, OTHER ==
[~2023-01-26] MED LIST changes: +CVS-161 PO; +HEALTH PO; +LEVO125T4 PO; +OMEP40CA5 PO; +PROBCAP14 PO; +RA A PO; +VITA100093 PO; +VITA500045 PO; +[UNRECOGNIZED DRUG - OTHER] PO
== END ==
LOC: M SFHCPLAZ 16:50
PROVIDERS: ATTEND Physician Assistant
DX: R05.1 Acute cough (principal); Z20.818 Contact with and (suspected) exposure to other bacterial communicable diseases

== ENCOUNTER 2023-02-01 12:22 | Day surgery (SDC) | payer MEDICARE ==
[~2023-02-01] VITALS: Ht 154.9 cm; Wt 89.8 kg
[~2023-02-01 12:22] MED LIST changes: +NS 1,000 ML IV ONE
[2023-02-01] MEDS ORDERED: FECAL MICROBIOTA TRANSPLANT PREPARATION 35ML BAG XX ONE (13:25)
[2023-02-01] MEDS ORDERED: propofoL 200 MG/20 ML VIAL As Ordered ONE (14:48)
[2023-02-01] MEDS ORDERED: LIDOCAINE 2% 100MG/5ML SDV (FOR ANES.) As Ordered ONE (14:48)
[2023-02-01 15:59] VITALS: BP 109/53
== END 2023-02-01 16:10 | disposition home or self-care (01) ==
LOC: M OPP 12:22
PROVIDERS: ATTEND Internal Medicine Gastroenterology
DX: K52.9 Noninfective gastroenteritis and colitis, unspecified (principal); A04.72 Enterocolitis due to Clostridium difficile, not specified as recurrent; F17.290 Nicotine dependence, other tobacco product, uncomplicated; Z79.899 Other long term (current) drug therapy; Z88.1 Allergy status to other antibiotic agents; Z88.5 Allergy status to narcotic agent; Z88.6 Allergy status to analgesic agent; Z88.8 Allergy status to other drugs, medicaments and biological substances
CPT/HCPCS: 45378; G0455

== ENCOUNTER 2023-03-12 16:13 | Emergency (ER) | payer MEDICARE, OTHER ==
[~2023-03-12] VITALS: Ht 154.9 cm; Wt 90.9 kg
[2023-03-12 16:13] VITALS: TEMP 98.7
[~2023-03-12 16:13] MED LIST changes: -NS 1,000 ML IV ONE
[2023-03-12 18:02] LABS: BASO # 0.1 10^3/uL (0.0-0.2); BASO % 0.4 % (0.0-1.0); EOS % 0.1 % (0.0-3.0); HEMATOCRIT 38.3 % (36.0-47.0); HEMOGLOBIN 12.6 g/dl (12.0-15.5); LYMPH # 1.5 10^3/uL (1.5-5.0); LYMPH % 8.6 % (24.0-44.0); MEAN CORPUSCULAR HEMOGLOBIN 31.8 pg (27.0-33.0); MEAN CORPUSCULAR HGB CONC 32.9 g/dl (32.0-36.5); MEAN CORPUSCULAR VOLUME 96.7 fl (80.0-96.0); NEUTROPHILS # 13.8 10^3/uL (1.5-8.5); NEUTROPHILS % 81.2 % (36.0-66.0); PLATELET COUNT, AUTOMATED 309 10^3/uL (150-450); RED BLOOD COUNT 3.96 10^6/uL (4.00-5.40); WHITE BLOOD COUNT 16.9 10^3/uL (4.0-10.0)
[2023-03-12] MEDS ORDERED: MORPHINE 4 MG/ML 1ML VIAL IV ONE ×2 (18:10→20:55)
[2023-03-12] MEDS ORDERED: diazePAM 10MG/2ML SYRINGE IV ONE (18:10)
[2023-03-12 18:13] LABS: MONO # 1.6 10^3/uL (0.0-0.8); MONO % 9.3 % (2.0-8.0)
[2023-03-12 18:18] LABS: CK-MB VALUE MASS < 1.0 NG/ML (<3.6)
[2023-03-12 18:19] LABS: LIPASE 39 U/L (12-53)
[2023-03-12 18:21] LABS: ALBUMIN 3.8 G/DL (3.2-5.2); ALKALINE PHOSPHATASE 129 U/L (46-116); ALT/SGPT 28 U/L (7.0-40); AST/SGOT 16 U/L (<34); BILIRUBIN,DIRECT 0.1 MG/DL (<0.4); BILIRUBIN,TOTAL 0.5 MG/DL (0.3-1.2); BLOOD UREA NITROGEN 12 MG/DL (9-23); CALCIUM LEVEL 8.9 MG/DL (8.5-10.1); CARBON DIOXIDE LEVEL 24 MMOL/L (20-31); CHLORIDE LEVEL 103 MMOL/L (98-107); CREATININE FOR GFR 0.97 MG/DL (0.55-1.30); GLOMERULAR FILTRATION RATE > 60.0 (>51); GLUCOSE, FASTING 96 MG/DL (60-100); POTASSIUM SERUM 3.7 MMOL/L (3.5-5.1); SODIUM LEVEL 137 MMOL/L (136-145); TOTAL PROTEIN 7.5 G/DL (5.7-8.2)
[2023-03-12 18:22] LABS: THYROID STIMULATING HORMONE 5.664 uIU/ML (0.55-4.78)
[2023-03-12 18:23] LABS: FREE T4 1.05 NG/DL (0.89-1.76); HCG, SERUM QUALITATIVE NEGATIVE (NEGATIVE)
[2023-03-12 18:24] LABS: CPK CREATINE PHOSPHOKINASE 65 U/L (34-145); MB/CK RELATIVE INDEX 1.53 (< OR =4)
[2023-03-12] MEDS ORDERED: ISOVUE-370 76% 100ML VIAL As Ordered ONE (19:08)
[2023-03-12] MEDS ORDERED: SUCRALFATE SUSP 1GM/10ML UD PO ONE (21:35)
[2023-03-12] MEDS ORDERED: MAALOX 30 ML SUSP *UDC PO ONE (21:35)
[2023-03-12 23:15] VITALS: BP 128/58
[2023-03-12 23:16] VITALS: O2SAT 92
== END 2023-03-12 23:22 | disposition home or self-care (01) ==
LOC: M ED 16:13
DX: R07.9 Chest pain, unspecified (principal); R91.1 Solitary pulmonary nodule; E78.5 Hyperlipidemia, unspecified; F31.9 Bipolar disorder, unspecified; F41.9 Anxiety disorder, unspecified; F17.200 Nicotine dependence, unspecified, uncomplicated; Z88.5 Allergy status to narcotic agent; Z88.8 Allergy status to other drugs, medicaments and biological substances; Z79.52 Long term (current) use of systemic steroids; Z79.83 Long term (current) use of bisphosphonates; Z79.810 Long term (current) use of selective estrogen receptor modulators (SERMs); Z79.899 Other long term (current) drug therapy
CPT/HCPCS: 70450; 71046; 71275; 74177; 80048; 80076; 82550; 82553; 83690; 83880; 84439; 84443; 84484; 84703; 85025; 85379; 93005; 96374; 96375; 99285; J3360; Q9967

== ENCOUNTER → 2023-03-23 | Outpatient (REF) | payer MEDICARE, OTHER | LOC: M LAB REF 13:20 | PROVIDERS: ATTEND Nurse Practitioner Family | DX: A04.8 Other specified bacterial intestinal infections (principal) ==

== ENCOUNTER → 2023-05-04 | Outpatient (CLI) | payer MEDICARE ==
[2023-05-04 09:25] LABS: BASO % 0.6 % (0.0-1.0); EOS # 0.1 10^3/uL (0.0-0.5); EOS % 1.9 % (0.0-3.0); HEMATOCRIT 36.5 % (36.0-47.0); LYMPH # 2.8 10^3/uL (1.5-5.0); LYMPH % 41.4 % (24.0-44.0); MEAN CORPUSCULAR HEMOGLOBIN 31.8 pg (27.0-33.0); MEAN CORPUSCULAR HGB CONC 32.9 g/dl (32.0-36.5); MEAN CORPUSCULAR VOLUME 96.8 fl (80.0-96.0); MONO # 0.5 10^3/uL (0.0-0.8); MONO % 7.8 % (2.0-8.0); NEUTROPHILS # 3.3 10^3/uL (1.5-8.5); NEUTROPHILS % 48.2 % (36.0-66.0); PLATELET COUNT, AUTOMATED 299 10^3/uL (150-450); RED BLOOD COUNT 3.77 10^6/uL (4.00-5.40); WHITE BLOOD COUNT 6.8 10^3/uL (4.0-10.0)
[2023-05-04 09:56] LABS: VITAMIN B12 LEVEL 1245 PG/ML (211-911)
[2023-05-04 09:57] LABS: FREE T4 1.03 NG/DL (0.89-1.76); THYROID STIMULATING HORMONE 1.906 uIU/ML (0.55-4.78); TOTAL 25(OH) VITAMIN D 47.7 NG/ML (20.0-100.0); VALPROIC ACID (DEPAKOTE) 59.2 UG/ML (50.0-100.0)
[2023-05-04 09:58] LABS: ALBUMIN 3.4 G/DL (3.2-5.2); ALKALINE PHOSPHATASE 113 U/L (46-116); ALT/SGPT 15 U/L (7.0-40); AST/SGOT 8 U/L (<34); BILIRUBIN,TOTAL 0.3 MG/DL (0.3-1.2); BLOOD UREA NITROGEN 11 MG/DL (9-23); CARBON DIOXIDE LEVEL 27 MMOL/L (20-31); CHLORIDE LEVEL 107 MMOL/L (98-107); CHOLESTEROL LEVEL 175 MG/DL (<200); CHOLESTEROL RISK RATIO 3.42 (<5); CREATININE FOR GFR 0.84 MG/DL (0.55-1.30); GLOMERULAR FILTRATION RATE > 60.0 (>51); GLUCOSE, FASTING 75 MG/DL (60-100); HDL CHOLESTEROL 51.1 MG/DL (>40); IRON (FE) 76 UG/DL (50-170); LDL CHOLESTEROL 89.3 MG/DL (<100); NON-HDL-C 123.9 MG/DL; PERCENT SATURATION 23.6 % (13.2-45.0); POTASSIUM SERUM 3.9 MMOL/L (3.5-5.1); SODIUM LEVEL 143 MMOL/L (136-145); TOTAL IRON BINDING CAPACITY 322 UG/DL (250-425); TRIGLYCERIDES LEVEL 173 MG/DL (<150)
== END ==
LOC: M LAB 08:26
PROVIDERS: ATTEND Nurse Practitioner Family
DX: E03.9 Hypothyroidism, unspecified (principal); E55.9 Vitamin D deficiency, unspecified; I10 Essential (primary) hypertension; D50.9 Iron deficiency anemia, unspecified; E78.5 Hyperlipidemia, unspecified; F31.9 Bipolar disorder, unspecified; G43.909 Migraine, unspecified, not intractable, without status migrainosus

== ENCOUNTER → 2023-05-04 | Outpatient (CLI) | payer MEDICARE ==
[~2023-05-04] MED LIST changes: +E-Z-GAS II EFFERVESCENT PACKET (SODIUM BICARB./CITRIC ACID/SIMETHICONE) As Ordered ONE; +E-Z-HD 98% w/w 340GM SUSP BTL As Ordered ONE; +E-Z-PAQUE 96% w/w SUSP 176GM BTL As Ordered ONE
== END ==
LOC: M RAD 08:32
PROVIDERS: ATTEND Internal Medicine Gastroenterology
DX: Z53.9 Procedure and treatment not carried out, unspecified reason (principal)

== ENCOUNTER 2023-07-11 16:45 | Emergency (ER) | payer MEDICARE ==
[~2023-07-11] VITALS: Ht 154.9 cm; Wt 90.0 kg
[~2023-07-11 16:45] MED LIST changes: -E-Z-GAS II EFFERVESCENT PACKET (SODIUM BICARB./CITRIC ACID/SIMETHICONE) As Ordered ONE; -E-Z-HD 98% w/w 340GM SUSP BTL As Ordered ONE; -E-Z-PAQUE 96% w/w SUSP 176GM BTL As Ordered ONE; -PREG200C; +PREG200C2
[2023-07-11] MEDS ORDERED: KETOROLAC 60MG 2ML VIAL IM ONE (18:25)
[2023-07-11] MEDS ORDERED: tiZANidine 4 MG TAB PO ONE (18:25)
[2023-07-11] MEDS ORDERED: MEDR4PAK PO (19:07)
[2023-07-11 19:24] VITALS: BP 118/73; TEMP 98.2; O2SAT 97
== END 2023-07-11 19:25 | disposition home or self-care (01) ==
LOC: M ED 16:45 → EDBD 16:45 → M ED 19:25
DX: M50.322 Other cervical disc degeneration at C5-C6 level (principal); M25.78 Osteophyte, vertebrae; I10 Essential (primary) hypertension; E03.9 Hypothyroidism, unspecified; M54.50 Low back pain, unspecified; K76.0 Fatty (change of) liver, not elsewhere classified; D64.9 Anemia, unspecified; F17.200 Nicotine dependence, unspecified, uncomplicated; Z88.6 Allergy status to analgesic agent; Z88.8 Allergy status to other drugs, medicaments and biological substances; Z79.52 Long term (current) use of systemic steroids; Z79.810 Long term (current) use of selective estrogen receptor modulators (SERMs); Z79.899 Other long term (current) drug therapy
CPT/HCPCS: 72125; 96372; 99284; G0463; J1885

== ENCOUNTER → 2023-11-23 | Outpatient (REF) | payer MEDICARE | LOC: M LAB REF 16:33 | PROVIDERS: ATTEND Nurse Practitioner Family | DX: R19.7 Diarrhea, unspecified (principal) ==

== ENCOUNTER → 2023-11-27 | Outpatient (CLI) | payer MEDICARE ==
[2023-11-27 14:52] LABS: BASO # 0.1 10^3/uL (0.0-0.2); BASO % 0.8 % (0.0-1.0); EOS # 0.1 10^3/uL (0.0-0.5); EOS % 1.9 % (0.0-3.0); HEMATOCRIT 35.7 % (36.0-47.0); HEMOGLOBIN 11.6 g/dl (12.0-15.5); LYMPH # 2.5 10^3/uL (1.5-5.0); LYMPH % 34.3 % (24.0-44.0); MEAN CORPUSCULAR HEMOGLOBIN 32.2 pg (27.0-33.0); MEAN CORPUSCULAR HGB CONC 32.5 g/dl (32.0-36.5); MEAN CORPUSCULAR VOLUME 99.2 fl (80.0-96.0); MONO # 0.5 10^3/uL (0.0-0.8); MONO % 6.4 % (2.0-8.0); NEUTROPHILS # 4.1 10^3/uL (1.5-8.5); NEUTROPHILS % 56.2 % (36.0-66.0); PLATELET COUNT, AUTOMATED 269 10^3/uL (150-450); WHITE BLOOD COUNT 7.2 10^3/uL (4.0-10.0)
[2023-11-27 15:13] LABS: BILIRUBIN,TOTAL 0.2 MG/DL (0.3-1.2); CALCIUM LEVEL 8.5 MG/DL (8.5-10.1); CHOLESTEROL RISK RATIO 3.62 (<5); CREATININE FOR GFR 1.02 MG/DL (0.55-1.30); FREE T4 1.03 NG/DL (0.89-1.76); GLOMERULAR FILTRATION RATE 59.7 (>51); HDL CHOLESTEROL 53.2 MG/DL (>40); LDL CHOLESTEROL 111.4 MG/DL (<100); NON-HDL-C 139.8 MG/DL; PERCENT SATURATION 27.9 % (13.2-45.0); POTASSIUM SERUM 4.5 MMOL/L (3.5-5.1); THYROID STIMULATING HORMONE 1.425 uIU/ML (0.55-4.78); TOTAL PROTEIN 6.4 G/DL (5.7-8.2)
[2023-11-27 15:15] LABS: TOTAL 25(OH) VITAMIN D 43.3 NG/ML (20.0-100.0)
[2023-11-27 15:43] LABS: HEMOGLOBIN A1c 5.3 % (4.0-6.0)
== END ==
LOC: M LAB 14:07
PROVIDERS: ATTEND Nurse Practitioner Family
DX: D50.9 Iron deficiency anemia, unspecified (principal); E55.9 Vitamin D deficiency, unspecified; I10 Essential (primary) hypertension; Z79.899 Other long term (current) drug therapy

== ENCOUNTER → 2023-12-14 | Outpatient (REF) | payer MEDICARE | LOC: M LAB REF 15:37 | PROVIDERS: ATTEND Nurse Practitioner Family | DX: R19.7 Diarrhea, unspecified (principal) ==

== ENCOUNTER → 2024-02-29 | Outpatient (CLI) | payer MEDICARE, OTHER | LOC: M SOG 12:10 | PROVIDERS: ATTEND Orthopaedic Surgery | DX: M25.431 Effusion, right wrist (principal); M25.531 Pain in right wrist; G56.01 Carpal tunnel syndrome, right upper limb ==

== ENCOUNTER → 2024-02-29 | Outpatient (CLI) | payer MEDICARE ==
[2024-02-29 15:48] LABS: BASO # 0.1 10^3/uL (0.0-0.2); BASO % 0.6 % (0.0-1.0); EOS # 0.1 10^3/uL (0.0-0.5); EOS % 1.4 % (0.0-3.0); HEMATOCRIT 37.5 % (36.0-47.0); LYMPH # 2.5 10^3/uL (1.5-5.0); LYMPH % 31.1 % (24.0-44.0); MEAN CORPUSCULAR HEMOGLOBIN 32.2 pg (27.0-33.0); MEAN CORPUSCULAR VOLUME 100.5 fl (80.0-96.0); MONO # 0.7 10^3/uL (0.0-0.8); MONO % 9.2 % (2.0-8.0); NEUTROPHILS # 4.6 10^3/uL (1.5-8.5); NEUTROPHILS % 57.5 % (36.0-66.0); PLATELET COUNT, AUTOMATED 311 10^3/uL (150-450); RED BLOOD COUNT 3.73 10^6/uL (4.00-5.40)
[2024-02-29 16:13] LABS: ALBUMIN 3.3 G/DL (3.2-5.2); ALKALINE PHOSPHATASE 115 U/L (46-116); ALT/SGPT 26 U/L (7.0-40); AST/SGOT 14 U/L (<34); BILIRUBIN,TOTAL 0.3 MG/DL (0.3-1.2); BLOOD UREA NITROGEN 13 MG/DL (9-23); CALCIUM LEVEL 8.7 MG/DL (8.5-10.1); CARBON DIOXIDE LEVEL 30 MMOL/L (20-31); CHLORIDE LEVEL 107 MMOL/L (98-107); CREATININE FOR GFR 0.95 MG/DL (0.55-1.30); GLOMERULAR FILTRATION RATE > 60.0 (>51); GLUCOSE, FASTING 81 MG/DL (60-100); POTASSIUM SERUM 4.7 MMOL/L (3.5-5.1); SODIUM LEVEL 139 MMOL/L (136-145); TOTAL PROTEIN 6.7 G/DL (5.7-8.2)
[2024-02-29 16:34] LABS: HEMOGLOBIN A1c 5.2 % (4.0-6.0)
== END ==
LOC: M PLALAB 12:37
PROVIDERS: ATTEND Orthopaedic Surgery
DX: G56.01 Carpal tunnel syndrome, right upper limb (principal); M25.431 Effusion, right wrist; M25.531 Pain in right wrist; Z79.899 Other long term (current) drug therapy

== ENCOUNTER → 2024-03-26 | Outpatient (REF) | payer MEDICARE, OTHER ==
[~2024-03-26] MED LIST changes: +AMIT25TA19 PO; +DICY20TA3 PO; +MELO15TA28 PO
[2024-03-28 12:52] LABS: HPV APTIMA Not Detected (Not Detected)
== END ==
LOC: M SFHCWAGY 17:51
PROVIDERS: ATTEND Nurse Practitioner Family
DX: Z12.4 Encounter for screening for malignant neoplasm of cervix (principal)
CPT/HCPCS: 87624; G0123

== ENCOUNTER → 2024-03-26 | Outpatient (CLI) | payer MEDICARE | LOC: M WHC 13:46 | PROVIDERS: ATTEND Nurse Practitioner Family | DX: Z12.31 Encounter for screening mammogram for malignant neoplasm of breast (principal); Z80.41 Family history of malignant neoplasm of ovary; Z80.3 Family history of malignant neoplasm of breast ==

== ENCOUNTER → 2024-03-28 | Outpatient (CLI) | payer MEDICARE ==
[2024-03-28 12:51] LABS: BASO % 0.4 % (0.0-1.0); EOS # 0.1 10^3/uL (0.0-0.5); EOS % 0.9 % (0.0-3.0); HEMATOCRIT 36.2 % (36.0-47.0); HEMOGLOBIN 11.7 g/dl (12.0-15.5); LYMPH # 2.3 10^3/uL (1.5-5.0); MEAN CORPUSCULAR HEMOGLOBIN 31.9 pg (27.0-33.0); MEAN CORPUSCULAR HGB CONC 32.3 g/dl (32.0-36.5); MEAN CORPUSCULAR VOLUME 98.6 fl (80.0-96.0); MONO # 0.6 10^3/uL (0.0-0.8); MONO % 7.4 % (2.0-8.0); NEUTROPHILS # 4.7 10^3/uL (1.5-8.5); NEUTROPHILS % 60.9 % (36.0-66.0); PLATELET COUNT, AUTOMATED 304 10^3/uL (150-450); RED BLOOD COUNT 3.67 10^6/uL (4.00-5.40); WHITE BLOOD COUNT 7.7 10^3/uL (4.0-10.0)
[2024-03-28 13:16] LABS: ALBUMIN 3.3 G/DL (3.2-5.2); ALKALINE PHOSPHATASE 115 U/L (46-116); ALT/SGPT 21 U/L (7.0-40); AST/SGOT 12 U/L (<34); BILIRUBIN,TOTAL 0.3 MG/DL (0.3-1.2); BLOOD UREA NITROGEN 15 MG/DL (9-23); CALCIUM LEVEL 8.6 MG/DL (8.5-10.1); CARBON DIOXIDE LEVEL 30 MMOL/L (20-31); CHLORIDE LEVEL 107 MMOL/L (98-107); CREATININE FOR GFR 0.87 MG/DL (0.55-1.30); GLOMERULAR FILTRATION RATE > 60.0 (>51); GLUCOSE, FASTING 83 MG/DL (60-100); IRON (FE) 88 UG/DL (50-170); PERCENT SATURATION 28.3 % (13.2-45.0); POTASSIUM SERUM 4.1 MMOL/L (3.5-5.1); SODIUM LEVEL 142 MMOL/L (136-145); TOTAL IRON BINDING CAPACITY 311 UG/DL (250-425); TOTAL PROTEIN 6.8 G/DL (5.7-8.2)
[2024-03-28 13:17] LABS: FREE T4 0.96 NG/DL (0.89-1.76)
[2024-03-28 13:18] LABS: THYROID STIMULATING HORMONE 2.123 uIU/ML (0.55-4.78); VITAMIN B12 LEVEL 1233 PG/ML (211-911)
== END ==
LOC: M LAB 11:44
PROVIDERS: ATTEND Student in an Organized Health Care Education/Training Program
DX: Z01.818 Encounter for other preprocedural examination (principal); Z98.84 Bariatric surgery status; E03.9 Hypothyroidism, unspecified; I10 Essential (primary) hypertension; E55.9 Vitamin D deficiency, unspecified; D50.9 Iron deficiency anemia, unspecified

== ENCOUNTER 2024-04-01 06:06 | Day surgery (SDC) | payer MEDICARE ==
[~2024-04-01] VITALS: Ht 154.9 cm; Wt 95.4 kg
[2024-04-01] MEDS ORDERED: LR 1,000 ML IV SCH (06:35)
[2024-04-01] MEDS ORDERED: propofoL 200 MG/20 ML VIAL As Ordered ONE (06:59)
[2024-04-01] MEDS ORDERED: LIDOCAINE 2% 100MG/5ML SDV (FOR ANES.) As Ordered ONE (06:59)
[2024-04-01] MEDS ORDERED: KETOROLAC 60MG 2ML VIAL As Ordered ONE (07:00)
[2024-04-01] MEDS ORDERED: ONDANSETRON 4MG 2ML VIAL As Ordered ONE (07:00)
[2024-04-01] MEDS ORDERED: fentaNYL 100 MCG/2 ML INJECTION As Ordered ONE (07:05)
[2024-04-01] MEDS ORDERED: MIDAZOLAM INJ 2MG/2ML VIAL As Ordered ONE (07:05)
[2024-04-01] MEDS: ceFAZolin SOD 2 GM in IV 1 EA IV ONE (07:40)
[2024-04-01] MEDS ORDERED: ACETAMINOPHEN 1000MG 100ML IV BAG As Ordered ONE (07:45)
[2024-04-01] MEDS: BACITRACIN OINTMENT 30GM TUBE As Ordered ONE (08:12)
[2024-04-01 08:21] VITALS: BP 124/61; TEMP 98.2; O2SAT 95
[2024-04-01] MEDS ORDERED: dexmedeTOMIDine (4MCG/ML)200MCG/50ML BTL (PRECEDEX) As Ordered ONE (09:30)
== END 2024-04-01 08:57 | disposition home or self-care (01) ==
LOC: M SDC 06:06
PROVIDERS: ATTEND Orthopaedic Surgery
DX: G56.01 Carpal tunnel syndrome, right upper limb (principal); E03.9 Hypothyroidism, unspecified; J45.909 Unspecified asthma, uncomplicated; K76.0 Fatty (change of) liver, not elsewhere classified; K58.9 Irritable bowel syndrome, unspecified; M79.7 Fibromyalgia; Z79.890 Hormone replacement therapy; Z79.899 Other long term (current) drug therapy; F17.290 Nicotine dependence, other tobacco product, uncomplicated; Z87.19 Personal history of other diseases of the digestive system; Z88.8 Allergy status to other drugs, medicaments and biological substances; Z88.5 Allergy status to narcotic agent; Z98.84 Bariatric surgery status

== ENCOUNTER → 2024-04-22 | Outpatient (CLI) | payer MEDICARE, OTHER | LOC: M RAD 14:03 | PROVIDERS: ATTEND Nurse Practitioner Family | DX: F17.210 Nicotine dependence, cigarettes, uncomplicated (principal); Z53.9 Procedure and treatment not carried out, unspecified reason ==

== ENCOUNTER → 2024-06-03 | Outpatient (REF) | payer MEDICARE, OTHER | LOC: M SFHCPLAZ 17:14 | PROVIDERS: ATTEND Physician Assistant Medical | DX: J01.80 Other acute sinusitis (principal) ==

== ENCOUNTER → 2024-07-08 | Outpatient (CLI) | payer MEDICARE | LOC: M RAD 13:40 | PROVIDERS: ATTEND Nurse Practitioner Family | DX: Z12.2 Encounter for screening for malignant neoplasm of respiratory organs (principal); F17.210 Nicotine dependence, cigarettes, uncomplicated ==

== ENCOUNTER → 2024-08-15 | Outpatient (CLI) | payer MEDICARE ==
[~2024-08-15] MED LIST changes: -CYCL5TAB PO; +CYCL5TAB4 PO
[2024-08-15 09:53] LABS: BASO % 0.5 % (0.0-1.0); EOS # 0.1 10^3/uL (0.0-0.5); EOS % 0.8 % (0.0-3.0); HEMATOCRIT 37.9 % (36.0-47.0); HEMOGLOBIN 12.2 g/dl (12.0-15.5); LYMPH % 36.6 % (24.0-44.0); MEAN CORPUSCULAR HEMOGLOBIN 32.2 pg (27.0-33.0); MEAN CORPUSCULAR HGB CONC 32.2 g/dl (32.0-36.5); MONO # 0.6 10^3/uL (0.0-0.8); MONO % 7.6 % (2.0-8.0); NEUTROPHILS # 4.5 10^3/uL (1.5-8.5); NEUTROPHILS % 54.3 % (36.0-66.0); PLATELET COUNT, AUTOMATED 308 10^3/uL (150-450); RED BLOOD COUNT 3.79 10^6/uL (4.00-5.40); WHITE BLOOD COUNT 8.3 10^3/uL (4.0-10.0)
[2024-08-15 10:10] LABS: HEMOGLOBIN A1c 5.2 % (4.0-6.0)
[2024-08-15 10:20] LABS: ALBUMIN 3.2 G/DL (3.2-5.2); ALKALINE PHOSPHATASE 106 U/L (35-104); ALT/SGPT 17 U/L (7.0-40); AST/SGOT < 8 U/L (<34); BILIRUBIN,TOTAL 0.3 MG/DL (0.3-1.2); BLOOD UREA NITROGEN 13 MG/DL (9-23); CALCIUM LEVEL 9.3 MG/DL (8.5-10.1); CARBON DIOXIDE LEVEL 31 MMOL/L (20-31); CHLORIDE LEVEL 105 MMOL/L (98-107); CHOLESTEROL LEVEL 173 MG/DL (<200); CHOLESTEROL RISK RATIO 3.08 (<5); CREATININE FOR GFR 0.96 MG/DL (0.55-1.30); GLOMERULAR FILTRATION RATE > 60.0 (>51); GLUCOSE, FASTING 78 MG/DL (60-100); HDL CHOLESTEROL 56.1 MG/DL (>40); IRON (FE) 85 UG/DL (50-170); LDL CHOLESTEROL 84.7 MG/DL (<100); NON-HDL-C 116.9 MG/DL; PERCENT SATURATION 26.2 % (13.2-45.0); POTASSIUM SERUM 4.1 MMOL/L (3.5-5.1); SODIUM LEVEL 142 MMOL/L (136-145); TOTAL IRON BINDING CAPACITY 325 UG/DL (250-425); TOTAL PROTEIN 7.1 G/DL (5.7-8.2); TRIGLYCERIDES LEVEL 161 MG/DL (<150)
[2024-08-15 10:33] LABS: THYROID STIMULATING HORMONE 10.234 uIU/ML (0.55-4.78)
[2024-08-15 10:34] LABS: FREE T4 1.06 NG/DL (0.89-1.76); VITAMIN B12 LEVEL 959 PG/ML (211-911)
== END ==
LOC: M LAB 08:50
PROVIDERS: ATTEND Nurse Practitioner Family
DX: Z13.1 Encounter for screening for diabetes mellitus (principal); E03.9 Hypothyroidism, unspecified; I10 Essential (primary) hypertension; E55.9 Vitamin D deficiency, unspecified; D50.9 Iron deficiency anemia, unspecified; E78.5 Hyperlipidemia, unspecified; Z98.84 Bariatric surgery status

== ENCOUNTER → 2024-09-09 | Outpatient (REF) | payer MEDICARE, OTHER | LOC: M SFHCPLAZ 14:44 | PROVIDERS: ATTEND Physician Assistant Medical | DX: J06.9 Acute upper respiratory infection, unspecified (principal) ==